=== PATIENT | male | born 1975 | race African-American/Black ===

== ENCOUNTER 2020-11-01 16:06 | Inpatient (IN) | payer OTHER ==
[2020-11-01] MEDS ORDERED: MAG HYDROX/AL HYDROX/SIMETH 30 ML UNIT-DOSE CUP PO PRN (21:53)
[2020-11-01] MEDS ORDERED: MAGNESIUM HYDROX 2400MG/30ML ORAL SUSPENSION 30 ML CUP PO PRN (21:53)
[2020-11-01] MEDS ORDERED: ACETAMINOPHEN 325 MG TABLET (FP) PO PRN (21:53)
[2020-11-01] MEDS ORDERED: LOPERAMIDE HCL 2 MG CAPSULE PO PRN (21:53)
[2020-11-01] MEDS ORDERED: guaiFENesin 200 MG/10 ML 10 ML UNIT-DOSE CUPS PO PRN (21:53)
[2020-11-01] MEDS ORDERED: P-EPHED 60MG/TRIPROLIDI 2.5MG TABLET PO PRN (21:53)
[2020-11-01] MEDS ORDERED: MAGNESIUM CITRATE 300 ML BOTTLE PO PRN (21:53)
[2020-11-01 22:35] VITALS: BMI 24.3
[2020-11-01] MEDS: THIAMINE HCL 100 MG TABLET (FP) PO SCH (23:19)
[2020-11-01] MEDS: MELATONIN 5 MG TABLETS PO SCH (23:19)
[2020-11-01] MEDS: hydrOXYzine PAMOATE 25 MG CAPSULE (FP) PO SCH (23:19)
[2020-11-02] MEDS: hydrOXYzine PAMOATE 25 MG CAPSULE (FP) PO SCH ×5 (06:19→21:22)
[2020-11-02] MEDS: PRENATAL VITAMINS W/ FOLIC ACID TABLET (FP) PO SCH (10:06)
[2020-11-02 10:37] LABS: PH,URINE 5.5 (5.0-8.0); URINE APPEARANCE CLEAR; URINE BILIRUBIN NEGATIVE (NEGATIVE); URINE COLOR YELLOW; URINE GLUCOSE (UA) NEGATIVE (NEGATIVE); URINE KETONE NEGATIVE (NEGATIVE); URINE LEUK ESTERASE NEGATIVE (NEGATIVE); URINE NITRITE NEGATIVE (NEGATIVE); URINE PROTEIN NEGATIVE (NEGATIVE)
[2020-11-02 10:43] LABS: HEMATOCRIT 42.1 % (35.4-49); HEMOGLOBIN 14.2 GM/dL (11.7-16.9); MCH 29.6 pg (25.7-33.7); MCHC 33.8 g/dl (32.0-35.9); MEAN CELL VOLUME 87.7 fl (80-96); MEAN PLT VOLUME 7.8 fl (7.5-11.1); PLATELET COUNT 309 K/MM3 (134-434); RDW 12.9 % (11.9-15.9); WHITE BLOOD COUNT 5.3 K/mm3 (4.0-10.0)
[2020-11-02] MEDS: MIRTAZAPINE 15 MG TABLET (FP) PO SCH (10:50)
[2020-11-02] MEDS: ESCITALOPRAM OXALATE 20 MG TABLET PO SCH (10:50)
[2020-11-02 10:59] LABS: CREATININE 1.3 mg/dL (0.55-1.3)
[2020-11-02 11:04] LABS: ALBUMIN 3.4 g/dl (3.4-5.0); BLOOD UREA NITROGEN 22.4 mg/dL (7-18); CALCIUM 9.5 mg/dL (8.5-10.1)
[2020-11-02] MEDS: THIAMINE HCL 100 MG TABLET (FP) PO SCH (21:21)
[2020-11-02] MEDS: MELATONIN 5 MG TABLETS PO SCH (21:21)
[2020-11-03] MEDS: hydrOXYzine PAMOATE 25 MG CAPSULE (FP) PO SCH ×5 (06:32→21:10)
[2020-11-03] MEDS: PATIENT'S OWN MEDICATION (NON-FORMULARY) (Bictegrav/Emtricit/Tenofov Ala 1 EACH Tablet) PO SCH (07:23)
[2020-11-03] MEDS ORDERED: PT OWN MED DRAWER 7, Y5N ONE (07:24)
[2020-11-03] MEDS: ATORVASTATIN CA 20 MG TABLET (FP) PO SCH (09:30)
[2020-11-03] MEDS: CHOLECALCIFEROL (VIT D3) 1,000 UNIT (25 MCG) TABLET PO SCH (09:30)
[2020-11-03] MEDS: ESCITALOPRAM OXALATE 20 MG TABLET PO SCH (09:30)
[2020-11-03] MEDS: PRENATAL VITAMINS W/ FOLIC ACID TABLET (FP) PO SCH (09:31)
[2020-11-03] MEDS: MIRTAZAPINE 15 MG TABLET (FP) PO SCH (09:32)
[2020-11-03] MEDS: IBUPROFEN 400 MG TABLET (FP) PO PRN (19:03)
[2020-11-03] MEDS: MELATONIN 5 MG TABLETS PO SCH (21:10)
[2020-11-03] MEDS: THIAMINE HCL 100 MG TABLET (FP) PO SCH (21:10)
[2020-11-04] MEDS: hydrOXYzine PAMOATE 25 MG CAPSULE (FP) PO SCH ×5 (06:08→21:23)
[2020-11-04] MEDS: IBUPROFEN 400 MG TABLET (FP) PO PRN ×2 (06:46→18:35)
[2020-11-04] MEDS: PATIENT'S OWN MEDICATION (NON-FORMULARY) (Bictegrav/Emtricit/Tenofov Ala 1 EACH Tablet) PO SCH (07:15)
[2020-11-04] MEDS: CHOLECALCIFEROL (VIT D3) 1,000 UNIT (25 MCG) TABLET PO SCH (09:37)
[2020-11-04] MEDS: ATORVASTATIN CA 20 MG TABLET (FP) PO SCH (09:37)
[2020-11-04] MEDS: MIRTAZAPINE 15 MG TABLET (FP) PO SCH (09:37)
[2020-11-04] MEDS: ESCITALOPRAM OXALATE 20 MG TABLET PO SCH (09:37)
[2020-11-04] MEDS: PRENATAL VITAMINS W/ FOLIC ACID TABLET (FP) PO SCH (09:38)
[2020-11-04] MEDS: MELATONIN 5 MG TABLETS PO SCH (21:22)
[2020-11-04] MEDS: THIAMINE HCL 100 MG TABLET (FP) PO SCH (21:22)
[2020-11-05] MEDS: hydrOXYzine PAMOATE 25 MG CAPSULE (FP) PO SCH (06:12)
[2020-11-05] MEDS: PATIENT'S OWN MEDICATION (NON-FORMULARY) (Bictegrav/Emtricit/Tenofov Ala 1 EACH Tablet) PO SCH (07:39)
[2020-11-05] MEDS: MIRTAZAPINE 15 MG TABLET (FP) PO SCH (09:54)
[2020-11-05] MEDS: ATORVASTATIN CA 20 MG TABLET (FP) PO SCH (09:54)
[2020-11-05] MEDS: CHOLECALCIFEROL (VIT D3) 1,000 UNIT (25 MCG) TABLET PO SCH (09:54)
[2020-11-05] MEDS: PRENATAL VITAMINS W/ FOLIC ACID TABLET (FP) PO SCH (09:54)
[2020-11-05] MEDS: ESCITALOPRAM OXALATE 20 MG TABLET PO SCH (09:54)
[2020-11-05] MEDS: OMEGA-3 ACID ETHYL ESTERS (FATTY-ACIDS) 1 GM CAPSULE (FP) PO SCH ×2 (10:27→21:15)
[2020-11-05] MEDS: IBUPROFEN 400 MG TABLET (FP) PO PRN (15:48)
[2020-11-05] MEDS: THIAMINE HCL 100 MG TABLET (FP) PO SCH (21:16)
[2020-11-05] MEDS: MELATONIN 5 MG TABLETS PO SCH (21:16)
[2020-11-05] MEDS: hydrOXYzine PAMOATE 25 MG CAPSULE (FP) PO PRN (21:21)
[2020-11-06] MEDS: PATIENT'S OWN MEDICATION (NON-FORMULARY) (Bictegrav/Emtricit/Tenofov Ala 1 EACH Tablet) PO SCH (08:44)
[2020-11-06] MEDS: OMEGA-3 ACID ETHYL ESTERS (FATTY-ACIDS) 1 GM CAPSULE (FP) PO SCH ×2 (09:44→21:02)
[2020-11-06] MEDS: ESCITALOPRAM OXALATE 20 MG TABLET PO SCH ×2 (09:45→21:03)
[2020-11-06] MEDS: PRENATAL VITAMINS W/ FOLIC ACID TABLET (FP) PO SCH (09:45)
[2020-11-06] MEDS: ATORVASTATIN CA 20 MG TABLET (FP) PO SCH (09:45)
[2020-11-06] MEDS: CHOLECALCIFEROL (VIT D3) 1,000 UNIT (25 MCG) TABLET PO SCH (09:45)
[2020-11-06] MEDS: MIRTAZAPINE 15 MG TABLET (FP) PO SCH ×2 (09:45→21:03)
[2020-11-06] MEDS: IBUPROFEN 400 MG TABLET (FP) PO PRN (13:51)
[2020-11-06] MEDS: MELATONIN 5 MG TABLETS PO SCH (21:02)
[2020-11-06] MEDS: THIAMINE HCL 100 MG TABLET (FP) PO SCH (21:02)
[2020-11-07] MEDS ORDERED: MASKS NR ONE (06:00)
[2020-11-07] MEDS: PATIENT'S OWN MEDICATION (NON-FORMULARY) (Bictegrav/Emtricit/Tenofov Ala 1 EACH Tablet) PO SCH (08:12)
[2020-11-07] MEDS: ATORVASTATIN CA 20 MG TABLET (FP) PO SCH (09:53)
[2020-11-07] MEDS: OMEGA-3 ACID ETHYL ESTERS (FATTY-ACIDS) 1 GM CAPSULE (FP) PO SCH ×2 (09:53→21:20)
[2020-11-07] MEDS: CHOLECALCIFEROL (VIT D3) 1,000 UNIT (25 MCG) TABLET PO SCH (09:53)
[2020-11-07] MEDS: PRENATAL VITAMINS W/ FOLIC ACID TABLET (FP) PO SCH (09:53)
[2020-11-07 13:11] LABS: SARS-CoV-2 NAA Not Detected (Not Detected)
[2020-11-07] MEDS: ESCITALOPRAM OXALATE 20 MG TABLET PO SCH (21:20)
[2020-11-07] MEDS: MELATONIN 5 MG TABLETS PO SCH (21:21)
[2020-11-07] MEDS: MIRTAZAPINE 15 MG TABLET (FP) PO SCH (21:21)
[2020-11-07] MEDS: THIAMINE HCL 100 MG TABLET (FP) PO SCH (21:21)
[2020-11-08] MEDS: CHOLECALCIFEROL (VIT D3) 1,000 UNIT (25 MCG) TABLET PO SCH (09:46)
[2020-11-08] MEDS: OMEGA-3 ACID ETHYL ESTERS (FATTY-ACIDS) 1 GM CAPSULE (FP) PO SCH ×2 (09:46→21:13)
[2020-11-08] MEDS: PRENATAL VITAMINS W/ FOLIC ACID TABLET (FP) PO SCH (09:46)
[2020-11-08] MEDS: PATIENT'S OWN MEDICATION (NON-FORMULARY) (Bictegrav/Emtricit/Tenofov Ala 1 EACH Tablet) PO SCH (09:47)
[2020-11-08] MEDS: ATORVASTATIN CA 20 MG TABLET (FP) PO SCH (09:47)
[2020-11-08] MEDS: hydrOXYzine PAMOATE 25 MG CAPSULE (FP) PO PRN (21:14)
[2020-11-08] MEDS: ESCITALOPRAM OXALATE 20 MG TABLET PO SCH (21:14)
[2020-11-08] MEDS: MELATONIN 5 MG TABLETS PO SCH (21:14)
[2020-11-08] MEDS: MIRTAZAPINE 15 MG TABLET (FP) PO SCH (21:14)
[2020-11-08] MEDS: THIAMINE HCL 100 MG TABLET (FP) PO SCH (21:15)
[2020-11-09] MEDS: PATIENT'S OWN MEDICATION (NON-FORMULARY) (Bictegrav/Emtricit/Tenofov Ala 1 EACH Tablet) PO SCH (08:45)
[2020-11-09] MEDS: PRENATAL VITAMINS W/ FOLIC ACID TABLET (FP) PO SCH (09:44)
[2020-11-09] MEDS: OMEGA-3 ACID ETHYL ESTERS (FATTY-ACIDS) 1 GM CAPSULE (FP) PO SCH ×2 (09:45→21:14)
[2020-11-09] MEDS: ATORVASTATIN CA 20 MG TABLET (FP) PO SCH (09:45)
[2020-11-09] MEDS: CHOLECALCIFEROL (VIT D3) 1,000 UNIT (25 MCG) TABLET PO SCH (09:45)
[2020-11-09] MEDS: MELATONIN 5 MG TABLETS PO SCH (21:14)
[2020-11-09] MEDS: ESCITALOPRAM OXALATE 20 MG TABLET PO SCH (21:14)
[2020-11-09] MEDS: MIRTAZAPINE 15 MG TABLET (FP) PO SCH (21:14)
[2020-11-09] MEDS: THIAMINE HCL 100 MG TABLET (FP) PO SCH (21:14)
[2020-11-10] MEDS: PATIENT'S OWN MEDICATION (NON-FORMULARY) (Bictegrav/Emtricit/Tenofov Ala 1 EACH Tablet) PO SCH (08:49)
[2020-11-10] MEDS: CHOLECALCIFEROL (VIT D3) 1,000 UNIT (25 MCG) TABLET PO SCH (09:49)
[2020-11-10] MEDS: OMEGA-3 ACID ETHYL ESTERS (FATTY-ACIDS) 1 GM CAPSULE (FP) PO SCH ×2 (09:49→21:22)
[2020-11-10] MEDS: ATORVASTATIN CA 20 MG TABLET (FP) PO SCH (09:49)
[2020-11-10] MEDS: PRENATAL VITAMINS W/ FOLIC ACID TABLET (FP) PO SCH (09:49)
[2020-11-10] MEDS: THIAMINE HCL 100 MG TABLET (FP) PO SCH (21:22)
[2020-11-10] MEDS: hydrOXYzine PAMOATE 25 MG CAPSULE (FP) PO PRN (21:22)
[2020-11-10] MEDS: ESCITALOPRAM OXALATE 20 MG TABLET PO SCH (21:22)
[2020-11-10] MEDS: MELATONIN 5 MG TABLETS PO SCH (21:22)
[2020-11-10] MEDS: MIRTAZAPINE 15 MG TABLET (FP) PO SCH (21:22)
[2020-11-10] MEDS: IBUPROFEN 400 MG TABLET (FP) PO PRN (21:24)
[2020-11-11] MEDS: PATIENT'S OWN MEDICATION (NON-FORMULARY) (Bictegrav/Emtricit/Tenofov Ala 1 EACH Tablet) PO SCH (08:45)
[2020-11-11] MEDS: PRENATAL VITAMINS W/ FOLIC ACID TABLET (FP) PO SCH (09:44)
[2020-11-11] MEDS: CHOLECALCIFEROL (VIT D3) 1,000 UNIT (25 MCG) TABLET PO SCH (09:44)
[2020-11-11] MEDS: OMEGA-3 ACID ETHYL ESTERS (FATTY-ACIDS) 1 GM CAPSULE (FP) PO SCH ×2 (09:44→21:27)
[2020-11-11] MEDS: ATORVASTATIN CA 20 MG TABLET (FP) PO SCH (09:44)
[2020-11-11] MEDS: THIAMINE HCL 100 MG TABLET (FP) PO SCH (21:27)
[2020-11-11] MEDS: MIRTAZAPINE 15 MG TABLET (FP) PO SCH (21:27)
[2020-11-11] MEDS: ESCITALOPRAM OXALATE 20 MG TABLET PO SCH (21:27)
[2020-11-11] MEDS: MELATONIN 5 MG TABLETS PO SCH (21:28)
[2020-11-12] MEDS: PATIENT'S OWN MEDICATION (NON-FORMULARY) (Bictegrav/Emtricit/Tenofov Ala 1 EACH Tablet) PO SCH (07:09)
[2020-11-12] MEDS: OMEGA-3 ACID ETHYL ESTERS (FATTY-ACIDS) 1 GM CAPSULE (FP) PO SCH ×2 (09:55→21:24)
[2020-11-12] MEDS: CHOLECALCIFEROL (VIT D3) 1,000 UNIT (25 MCG) TABLET PO SCH (09:55)
[2020-11-12] MEDS: PRENATAL VITAMINS W/ FOLIC ACID TABLET (FP) PO SCH (09:55)
[2020-11-12] MEDS: ATORVASTATIN CA 20 MG TABLET (FP) PO SCH (10:35)
[2020-11-12] MEDS: MELATONIN 5 MG TABLETS PO SCH (21:23)
[2020-11-12] MEDS: THIAMINE HCL 100 MG TABLET (FP) PO SCH (21:23)
[2020-11-12] MEDS: ESCITALOPRAM OXALATE 20 MG TABLET PO SCH (21:24)
[2020-11-12] MEDS: MIRTAZAPINE 15 MG TABLET (FP) PO SCH (21:24)
[2020-11-13] MEDS: PATIENT'S OWN MEDICATION (NON-FORMULARY) (Bictegrav/Emtricit/Tenofov Ala 1 EACH Tablet) PO SCH (07:07)
[2020-11-13] MEDS: ATORVASTATIN CA 20 MG TABLET (FP) PO SCH (09:33)
[2020-11-13] MEDS: OMEGA-3 ACID ETHYL ESTERS (FATTY-ACIDS) 1 GM CAPSULE (FP) PO SCH ×2 (09:34→21:15)
[2020-11-13] MEDS: CHOLECALCIFEROL (VIT D3) 1,000 UNIT (25 MCG) TABLET PO SCH (09:34)
[2020-11-13] MEDS: PRENATAL VITAMINS W/ FOLIC ACID TABLET (FP) PO SCH (09:34)
[2020-11-13] MEDS: IBUPROFEN 400 MG TABLET (FP) PO PRN (13:53)
[2020-11-13] MEDS ORDERED: LIDOCAINE 5% TOPICAL PATCH TP ONE (15:15)
[2020-11-13] MEDS ORDERED: METHOCARBAMOL 500 MG TABLET PO PRN (18:20)
[2020-11-13] MEDS: THIAMINE HCL 100 MG TABLET (FP) PO SCH (21:14)
[2020-11-13] MEDS: MELATONIN 5 MG TABLETS PO SCH (21:14)
[2020-11-13] MEDS: LIDOCAINE PATCH REMOVAL MC SCH (21:15)
[2020-11-13] MEDS: MIRTAZAPINE 15 MG TABLET (FP) PO SCH (21:15)
[2020-11-13] MEDS: ESCITALOPRAM OXALATE 20 MG TABLET PO SCH (21:15)
[2020-11-14] MEDS: PATIENT'S OWN MEDICATION (NON-FORMULARY) (Bictegrav/Emtricit/Tenofov Ala 1 EACH Tablet) PO SCH (07:04)
[2020-11-14] MEDS: PRENATAL VITAMINS W/ FOLIC ACID TABLET (FP) PO SCH (09:51)
[2020-11-14] MEDS: OMEGA-3 ACID ETHYL ESTERS (FATTY-ACIDS) 1 GM CAPSULE (FP) PO SCH ×2 (09:51→21:13)
[2020-11-14] MEDS: CHOLECALCIFEROL (VIT D3) 1,000 UNIT (25 MCG) TABLET PO SCH (09:51)
[2020-11-14] MEDS: ATORVASTATIN CA 20 MG TABLET (FP) PO SCH (09:51)
[2020-11-14] MEDS: METHOCARBAMOL 500 MG TABLET PO SCH ×3 (14:24→21:13)
[2020-11-14] MEDS: MELATONIN 5 MG TABLETS PO SCH (21:13)
[2020-11-14] MEDS: THIAMINE HCL 100 MG TABLET (FP) PO SCH (21:13)
[2020-11-14] MEDS: MIRTAZAPINE 15 MG TABLET (FP) PO SCH (21:13)
[2020-11-14] MEDS: ESCITALOPRAM OXALATE 20 MG TABLET PO SCH (21:13)
[2020-11-14] MEDS: LIDOCAINE PATCH REMOVAL MC SCH (21:14)
[2020-11-15] MEDS: PATIENT'S OWN MEDICATION (NON-FORMULARY) (Bictegrav/Emtricit/Tenofov Ala 1 EACH Tablet) PO SCH (07:02)
[2020-11-15] MEDS: METHOCARBAMOL 500 MG TABLET PO SCH ×4 (10:42→21:31)
[2020-11-15] MEDS: CHOLECALCIFEROL (VIT D3) 1,000 UNIT (25 MCG) TABLET PO SCH (10:42)
[2020-11-15] MEDS: ATORVASTATIN CA 20 MG TABLET (FP) PO SCH (10:42)
[2020-11-15] MEDS: OMEGA-3 ACID ETHYL ESTERS (FATTY-ACIDS) 1 GM CAPSULE (FP) PO SCH ×2 (10:42→21:31)
[2020-11-15] MEDS: PRENATAL VITAMINS W/ FOLIC ACID TABLET (FP) PO SCH (10:43)
[2020-11-15] MEDS: MELATONIN 5 MG TABLETS PO SCH (21:30)
[2020-11-15] MEDS: MIRTAZAPINE 15 MG TABLET (FP) PO SCH (21:31)
[2020-11-15] MEDS: ESCITALOPRAM OXALATE 20 MG TABLET PO SCH (21:32)
[2020-11-15] MEDS: THIAMINE HCL 100 MG TABLET (FP) PO SCH (21:32)
[2020-11-15] MEDS: LIDOCAINE PATCH REMOVAL MC SCH (21:53)
[2020-11-16] MEDS ORDERED: PT OWN MED DRAWER 7, Y5N ONE (03:24)
[2020-11-16] MEDS: PATIENT'S OWN MEDICATION (NON-FORMULARY) (Bictegrav/Emtricit/Tenofov Ala 1 EACH Tablet) PO SCH (07:19)
[2020-11-16] MEDS: ATORVASTATIN CA 20 MG TABLET (FP) PO SCH (10:23)
[2020-11-16] MEDS: CHOLECALCIFEROL (VIT D3) 1,000 UNIT (25 MCG) TABLET PO SCH (10:23)
[2020-11-16] MEDS: hydrOXYzine PAMOATE 25 MG CAPSULE (FP) PO PRN ×2 (10:23→21:27)
[2020-11-16] MEDS: OMEGA-3 ACID ETHYL ESTERS (FATTY-ACIDS) 1 GM CAPSULE (FP) PO SCH ×2 (10:23→21:26)
[2020-11-16] MEDS: METHOCARBAMOL 500 MG TABLET PO SCH ×4 (10:23→22:40)
[2020-11-16] MEDS: PRENATAL VITAMINS W/ FOLIC ACID TABLET (FP) PO SCH (10:23)
[2020-11-16] MEDS: ESCITALOPRAM OXALATE 20 MG TABLET PO SCH (21:25)
[2020-11-16] MEDS: MIRTAZAPINE 15 MG TABLET (FP) PO SCH (21:26)
[2020-11-16] MEDS: MELATONIN 5 MG TABLETS PO SCH (21:27)
[2020-11-16] MEDS: LIDOCAINE PATCH REMOVAL MC SCH (21:27)
[2020-11-16] MEDS: THIAMINE HCL 100 MG TABLET (FP) PO SCH (22:40)
[2020-11-17] MEDS: PATIENT'S OWN MEDICATION (NON-FORMULARY) (Bictegrav/Emtricit/Tenofov Ala 1 EACH Tablet) PO SCH (07:27)
[2020-11-17] MEDS: CHOLECALCIFEROL (VIT D3) 1,000 UNIT (25 MCG) TABLET PO SCH (10:02)
[2020-11-17] MEDS: METHOCARBAMOL 500 MG TABLET PO SCH ×4 (10:03→21:18)
[2020-11-17] MEDS: PRENATAL VITAMINS W/ FOLIC ACID TABLET (FP) PO SCH (10:03)
[2020-11-17] MEDS: OMEGA-3 ACID ETHYL ESTERS (FATTY-ACIDS) 1 GM CAPSULE (FP) PO SCH ×2 (10:03→21:18)
[2020-11-17] MEDS: ATORVASTATIN CA 20 MG TABLET (FP) PO SCH (13:39)
[2020-11-17] MEDS: MELATONIN 5 MG TABLETS PO SCH (21:17)
[2020-11-17] MEDS: THIAMINE HCL 100 MG TABLET (FP) PO SCH (21:17)
[2020-11-17] MEDS: MIRTAZAPINE 15 MG TABLET (FP) PO SCH (21:18)
[2020-11-17] MEDS: ESCITALOPRAM OXALATE 20 MG TABLET PO SCH (21:18)
[2020-11-17] MEDS: LIDOCAINE PATCH REMOVAL MC SCH (21:19)
[2020-11-18] MEDS: PATIENT'S OWN MEDICATION (NON-FORMULARY) (Bictegrav/Emtricit/Tenofov Ala 1 EACH Tablet) PO SCH (07:04)
[2020-11-18] MEDS: OMEGA-3 ACID ETHYL ESTERS (FATTY-ACIDS) 1 GM CAPSULE (FP) PO SCH ×2 (09:19→21:27)
[2020-11-18] MEDS: PRENATAL VITAMINS W/ FOLIC ACID TABLET (FP) PO SCH (09:19)
[2020-11-18] MEDS: ATORVASTATIN CA 20 MG TABLET (FP) PO SCH (09:19)
[2020-11-18] MEDS: CHOLECALCIFEROL (VIT D3) 1,000 UNIT (25 MCG) TABLET PO SCH (09:19)
[2020-11-18] MEDS: METHOCARBAMOL 500 MG TABLET PO SCH ×4 (09:19→21:27)
[2020-11-18] MEDS: MELATONIN 5 MG TABLETS PO SCH (21:27)
[2020-11-18] MEDS: ESCITALOPRAM OXALATE 20 MG TABLET PO SCH (21:27)
[2020-11-18] MEDS: THIAMINE HCL 100 MG TABLET (FP) PO SCH (21:27)
[2020-11-18] MEDS: MIRTAZAPINE 15 MG TABLET (FP) PO SCH (21:28)
[2020-11-18] MEDS: LIDOCAINE PATCH REMOVAL MC SCH (21:31)
[2020-11-19] MEDS: PATIENT'S OWN MEDICATION (NON-FORMULARY) (Bictegrav/Emtricit/Tenofov Ala 1 EACH Tablet) PO SCH (07:02)
[2020-11-19] MEDS: CHOLECALCIFEROL (VIT D3) 1,000 UNIT (25 MCG) TABLET PO SCH (10:02)
[2020-11-19] MEDS: PRENATAL VITAMINS W/ FOLIC ACID TABLET (FP) PO SCH (10:02)
[2020-11-19] MEDS: ATORVASTATIN CA 20 MG TABLET (FP) PO SCH (10:02)
[2020-11-19] MEDS: METHOCARBAMOL 500 MG TABLET PO SCH ×4 (10:02→21:36)
[2020-11-19] MEDS: OMEGA-3 ACID ETHYL ESTERS (FATTY-ACIDS) 1 GM CAPSULE (FP) PO SCH ×2 (10:02→21:35)
[2020-11-19] MEDS: ESCITALOPRAM OXALATE 20 MG TABLET PO SCH (21:36)
[2020-11-19] MEDS: MIRTAZAPINE 15 MG TABLET (FP) PO SCH (21:36)
[2020-11-19] MEDS: THIAMINE HCL 100 MG TABLET (FP) PO SCH (21:36)
[2020-11-19] MEDS: MELATONIN 5 MG TABLETS PO SCH (21:36)
[2020-11-19] MEDS: LIDOCAINE PATCH REMOVAL MC SCH (21:37)
[2020-11-20] MEDS: PATIENT'S OWN MEDICATION (NON-FORMULARY) (Bictegrav/Emtricit/Tenofov Ala 1 EACH Tablet) PO SCH (07:42)
[2020-11-20] MEDS: CHOLECALCIFEROL (VIT D3) 1,000 UNIT (25 MCG) TABLET PO SCH (10:19)
[2020-11-20] MEDS: ATORVASTATIN CA 20 MG TABLET (FP) PO SCH (10:19)
[2020-11-20] MEDS: PRENATAL VITAMINS W/ FOLIC ACID TABLET (FP) PO SCH (10:19)
[2020-11-20] MEDS: OMEGA-3 ACID ETHYL ESTERS (FATTY-ACIDS) 1 GM CAPSULE (FP) PO SCH ×2 (10:19→21:21)
[2020-11-20] MEDS: METHOCARBAMOL 500 MG TABLET PO SCH ×4 (10:19→21:21)
[2020-11-20] MEDS: THIAMINE HCL 100 MG TABLET (FP) PO SCH (21:21)
[2020-11-20] MEDS: MIRTAZAPINE 15 MG TABLET (FP) PO SCH (21:21)
[2020-11-20] MEDS: MELATONIN 5 MG TABLETS PO SCH (21:21)
[2020-11-20] MEDS: ESCITALOPRAM OXALATE 20 MG TABLET PO SCH (21:21)
[2020-11-20] MEDS: LIDOCAINE PATCH REMOVAL MC SCH (21:22)
[2020-11-21] MEDS: PATIENT'S OWN MEDICATION (NON-FORMULARY) (Bictegrav/Emtricit/Tenofov Ala 1 EACH Tablet) PO SCH (07:05)
[2020-11-21 07:17] VITALS: PULSE 72
[2020-11-21] MEDS: CHOLECALCIFEROL (VIT D3) 1,000 UNIT (25 MCG) TABLET PO SCH (10:23)
[2020-11-21] MEDS: PRENATAL VITAMINS W/ FOLIC ACID TABLET (FP) PO SCH (10:23)
[2020-11-21] MEDS: OMEGA-3 ACID ETHYL ESTERS (FATTY-ACIDS) 1 GM CAPSULE (FP) PO SCH ×2 (10:24→21:37)
[2020-11-21] MEDS: ATORVASTATIN CA 20 MG TABLET (FP) PO SCH (10:24)
[2020-11-21] MEDS: METHOCARBAMOL 500 MG TABLET PO SCH ×4 (10:24→21:37)
[2020-11-21] MEDS: ESCITALOPRAM OXALATE 20 MG TABLET PO SCH (21:37)
[2020-11-21] MEDS: MIRTAZAPINE 15 MG TABLET (FP) PO SCH (21:37)
[2020-11-21] MEDS: THIAMINE HCL 100 MG TABLET (FP) PO SCH (21:38)
[2020-11-21] MEDS: LIDOCAINE PATCH REMOVAL MC SCH (21:38)
[2020-11-21] MEDS: MELATONIN 5 MG TABLETS PO SCH (21:38)
[2020-11-22] MEDS: PATIENT'S OWN MEDICATION (NON-FORMULARY) (Bictegrav/Emtricit/Tenofov Ala 1 EACH Tablet) PO SCH (07:01)
[2020-11-22 07:32] VITALS: BP 127/84; TEMP 96.8
[2020-11-22] MEDS ORDERED: PT OWN MED DRAWER 7, Y5N ONE (09:07)
[2020-11-22] MEDS: PRENATAL VITAMINS W/ FOLIC ACID TABLET (FP) PO SCH (10:03)
[2020-11-22] MEDS: OMEGA-3 ACID ETHYL ESTERS (FATTY-ACIDS) 1 GM CAPSULE (FP) PO SCH (10:03)
[2020-11-22] MEDS: ATORVASTATIN CA 20 MG TABLET (FP) PO SCH (10:03)
[2020-11-22] MEDS: METHOCARBAMOL 500 MG TABLET PO SCH (10:03)
[2020-11-22] MEDS: CHOLECALCIFEROL (VIT D3) 1,000 UNIT (25 MCG) TABLET PO SCH (10:03)
== END 2020-11-22 10:09 | disposition home or self-care (01) | DRG 772 ==
LOC: YASAS 16:06 → Y3W 21:21
PROVIDERS: ADMIT Allergy & Immunology; ATTEND Allergy & Immunology
PROC: HZ42ZZZ Group Counseling for Substance Abuse Treatment, Cognitive-Behavioral (ICD-10-PCS; principal; 2020-11-01)
DX: F14.20 Cocaine dependence, uncomplicated (principal); F15.20 Other stimulant dependence, uncomplicated; F19.280 Other psychoactive substance dependence with psychoactive substance-induced anxiety disorder; F19.282 Other psychoactive substance dependence with psychoactive substance-induced sleep disorder; F32.9 Major depressive disorder, single episode, unspecified; F43.10 Post-traumatic stress disorder, unspecified; Z21 Asymptomatic human immunodeficiency virus [HIV] infection status; E78.5 Hyperlipidemia, unspecified; M54.89 Other dorsalgia; Z62.810 Personal history of physical and sexual abuse in childhood; Z86.19 Personal history of other infectious and parasitic diseases; Z98.890 Other specified postprocedural states
CPT/HCPCS: 36415; 80053; 81003; 85027; 86593; 86780; 93005; 93010; C9803; U0003; U0005

== ENCOUNTER 2021-05-30 13:28 | Inpatient (IN) | payer OTHER ==
[2021-05-30 17:31] VITALS: BMI 24.7
[2021-05-30] MEDS ORDERED: guaiFENesin 200 MG/10 ML 10 ML UNIT-DOSE CUPS PO PRN (21:23)
[2021-05-30] MEDS ORDERED: MAGNESIUM HYDROX 2400MG/30ML ORAL SUSPENSION 30 ML CUP PO PRN (21:23)
[2021-05-30] MEDS ORDERED: P-EPHED 60MG/TRIPROLIDI 2.5MG TABLET PO PRN (21:23)
[2021-05-30] MEDS ORDERED: LOPERAMIDE HCL 2 MG CAPSULE PO PRN (21:23)
[2021-05-30] MEDS ORDERED: ACETAMINOPHEN 325 MG TABLET (FP) PO PRN (21:23)
[2021-05-30] MEDS ORDERED: MAG HYDROX/AL HYDROX/SIMETH 30 ML UNIT-DOSE CUP PO PRN (21:23)
[2021-05-30] MEDS ORDERED: MAGNESIUM CITRATE 300 ML BOTTLE PO PRN (21:23)
[2021-05-31] MEDS: THIAMINE HCL 100 MG TABLET (FP) PO SCH ×2 (01:15→21:38)
[2021-05-31] MEDS: MELATONIN 5 MG TABLETS PO SCH ×2 (01:16→21:36)
[2021-05-31] MEDS: hydrOXYzine PAMOATE 25 MG CAPSULE (FP) PO SCH ×6 (01:16→21:35)
[2021-05-31] MEDS: ATORVASTATIN CA 20 MG TABLET (FP) PO SCH ×2 (01:16→21:36)
[2021-05-31] MEDS: IBUPROFEN 400 MG TABLET (FP) PO PRN (03:06)
[2021-05-31] MEDS: PRENATAL VITAMINS W/ FOLIC ACID TABLET (FP) PO SCH (10:16)
[2021-05-31] MEDS: NICOTINE 7 MG/24 HOURS TOPICAL PATCH TD SCH (10:16)
[2021-05-31] MEDS: CHOLECALCIFEROL (VIT D3) 1,000 UNIT (25 MCG) TABLET PO SCH (10:16)
[2021-05-31] MEDS: BICTEGRAV/EMTRICIT/TENOFOV (BIKTARVY) 50-200-25 MG TABLET PO SCH (10:16)
[2021-05-31 11:22] LABS: HEMATOCRIT 40.5 % (35.4-49); MCHC 34.4 g/dl (32.0-35.9); MEAN CELL VOLUME 84.2 fl (80-96); MEAN PLT VOLUME 7.4 fl (7.5-11.1); PLATELET COUNT 265 10^3/uL (134-434); RBC 4.81 M/mm3 (4.00-5.60); RDW 12.8 % (11.9-15.9); WHITE BLOOD COUNT 4.7 K/mm3 (4.0-10.0)
[2021-05-31 11:35] LABS: CALCIUM 9.3 mg/dL (8.5-10.1)
[2021-05-31 11:36] LABS: BLOOD UREA NITROGEN 16.6 mg/dL (7-18)
[2021-05-31 11:38] LABS: CREATININE 1.2 mg/dL (0.55-1.3)
[2021-05-31 11:40] LABS: BILIRUBIN,TOTAL 0.6 mg/dL (0.2-1); TOT PROT 6.9 g/dl (6.4-8.2)
[2021-05-31 11:53] LABS: URINE APPEARANCE Clear; URINE BILIRUBIN Negative (NEGATIVE); URINE COLOR Yellow; URINE GLUCOSE (UA) Negative (NEGATIVE); URINE KETONE Trace (NEGATIVE); URINE LEUK ESTERASE Negative (NEGATIVE); URINE NITRITE Negative (NEGATIVE); URINE PROTEIN Negative (NEGATIVE); URINE UROBILINOGEN 0.2 mg/dL (0.2-1.0)
[2021-05-31] MEDS: ESCITALOPRAM OXALATE 20 MG TABLET PO SCH (12:16)
[2021-05-31 20:09] LABS: SYPHILIS W/ RPR CONF REACTIVE (NONREACTIVE)
[2021-05-31] MEDS: MIRTAZAPINE 15 MG TABLET (FP) PO SCH (21:38)
[2021-05-31] MEDS: risperiDONE 2 MG TABLET PO SCH (21:38)
[2021-06-01] MEDS: hydrOXYzine PAMOATE 25 MG CAPSULE (FP) PO SCH ×5 (06:20→21:19)
[2021-06-01] MEDS: PRENATAL VITAMINS W/ FOLIC ACID TABLET (FP) PO SCH (09:59)
[2021-06-01] MEDS: BICTEGRAV/EMTRICIT/TENOFOV (BIKTARVY) 50-200-25 MG TABLET PO SCH (10:00)
[2021-06-01] MEDS: NICOTINE 7 MG/24 HOURS TOPICAL PATCH TD SCH (10:00)
[2021-06-01] MEDS: ESCITALOPRAM OXALATE 20 MG TABLET PO SCH (10:00)
[2021-06-01] MEDS: CHOLECALCIFEROL (VIT D3) 1,000 UNIT (25 MCG) TABLET PO SCH (10:00)
[2021-06-01] MEDS: ATORVASTATIN CA 20 MG TABLET (FP) PO SCH (21:18)
[2021-06-01] MEDS: MELATONIN 5 MG TABLETS PO SCH (21:18)
[2021-06-01] MEDS: risperiDONE 2 MG TABLET PO SCH (21:18)
[2021-06-01] MEDS: MIRTAZAPINE 15 MG TABLET (FP) PO SCH (21:18)
[2021-06-01] MEDS: THIAMINE HCL 100 MG TABLET (FP) PO SCH (21:18)
[2021-06-02] MEDS: hydrOXYzine PAMOATE 25 MG CAPSULE (FP) PO SCH ×5 (06:10→21:21)
[2021-06-02] MEDS: BICTEGRAV/EMTRICIT/TENOFOV (BIKTARVY) 50-200-25 MG TABLET PO SCH (09:55)
[2021-06-02] MEDS: NICOTINE 7 MG/24 HOURS TOPICAL PATCH TD SCH (09:55)
[2021-06-02] MEDS: ESCITALOPRAM OXALATE 20 MG TABLET PO SCH (09:55)
[2021-06-02] MEDS: CHOLECALCIFEROL (VIT D3) 1,000 UNIT (25 MCG) TABLET PO SCH (09:55)
[2021-06-02] MEDS: PRENATAL VITAMINS W/ FOLIC ACID TABLET (FP) PO SCH (09:55)
[2021-06-02] MEDS: THIAMINE HCL 100 MG TABLET (FP) PO SCH (21:20)
[2021-06-02] MEDS: risperiDONE 2 MG TABLET PO SCH (21:21)
[2021-06-02] MEDS: MIRTAZAPINE 15 MG TABLET (FP) PO SCH (21:21)
[2021-06-02] MEDS: ATORVASTATIN CA 20 MG TABLET (FP) PO SCH (21:21)
[2021-06-02] MEDS: MELATONIN 5 MG TABLETS PO SCH (21:21)
[2021-06-03] MEDS: hydrOXYzine PAMOATE 25 MG CAPSULE (FP) PO SCH ×5 (06:27→21:25)
[2021-06-03] MEDS: CHOLECALCIFEROL (VIT D3) 1,000 UNIT (25 MCG) TABLET PO SCH (09:58)
[2021-06-03] MEDS: PRENATAL VITAMINS W/ FOLIC ACID TABLET (FP) PO SCH (09:58)
[2021-06-03] MEDS: BICTEGRAV/EMTRICIT/TENOFOV (BIKTARVY) 50-200-25 MG TABLET PO SCH (09:58)
[2021-06-03] MEDS: ESCITALOPRAM OXALATE 20 MG TABLET PO SCH (09:58)
[2021-06-03] MEDS: NICOTINE 7 MG/24 HOURS TOPICAL PATCH TD SCH (09:58)
[2021-06-03] MEDS: MELATONIN 5 MG TABLETS PO SCH (21:25)
[2021-06-03] MEDS: ATORVASTATIN CA 20 MG TABLET (FP) PO SCH (21:25)
[2021-06-03] MEDS: MIRTAZAPINE 15 MG TABLET (FP) PO SCH (21:25)
[2021-06-03] MEDS: THIAMINE HCL 100 MG TABLET (FP) PO SCH (21:25)
[2021-06-03] MEDS: risperiDONE 2 MG TABLET PO SCH (21:25)
[2021-06-04] MEDS: hydrOXYzine PAMOATE 25 MG CAPSULE (FP) PO SCH ×5 (06:33→21:03)
[2021-06-04] MEDS: CHOLECALCIFEROL (VIT D3) 1,000 UNIT (25 MCG) TABLET PO SCH (10:33)
[2021-06-04] MEDS: PRENATAL VITAMINS W/ FOLIC ACID TABLET (FP) PO SCH (10:33)
[2021-06-04] MEDS: BICTEGRAV/EMTRICIT/TENOFOV (BIKTARVY) 50-200-25 MG TABLET PO SCH (10:34)
[2021-06-04] MEDS: ESCITALOPRAM OXALATE 20 MG TABLET PO SCH (10:34)
[2021-06-04] MEDS: NICOTINE 7 MG/24 HOURS TOPICAL PATCH TD SCH (10:34)
[2021-06-04] MEDS: MIRTAZAPINE 15 MG TABLET (FP) PO SCH (21:02)
[2021-06-04] MEDS: risperiDONE 2 MG TABLET PO SCH (21:02)
[2021-06-04] MEDS: ATORVASTATIN CA 20 MG TABLET (FP) PO SCH (21:02)
[2021-06-04] MEDS: THIAMINE HCL 100 MG TABLET (FP) PO SCH (21:03)
[2021-06-04] MEDS: MELATONIN 5 MG TABLETS PO SCH (21:03)
[2021-06-05] MEDS: hydrOXYzine PAMOATE 25 MG CAPSULE (FP) PO SCH ×5 (06:33→21:29)
[2021-06-05] MEDS: CHOLECALCIFEROL (VIT D3) 1,000 UNIT (25 MCG) TABLET PO SCH (10:30)
[2021-06-05] MEDS: PRENATAL VITAMINS W/ FOLIC ACID TABLET (FP) PO SCH (10:30)
[2021-06-05] MEDS: BICTEGRAV/EMTRICIT/TENOFOV (BIKTARVY) 50-200-25 MG TABLET PO SCH (10:30)
[2021-06-05] MEDS: ESCITALOPRAM OXALATE 20 MG TABLET PO SCH (10:30)
[2021-06-05] MEDS: NICOTINE 7 MG/24 HOURS TOPICAL PATCH TD SCH (10:31)
[2021-06-05] MEDS: MELATONIN 5 MG TABLETS PO SCH (21:28)
[2021-06-05] MEDS: THIAMINE HCL 100 MG TABLET (FP) PO SCH (21:28)
[2021-06-05] MEDS: risperiDONE 2 MG TABLET PO SCH (21:29)
[2021-06-05] MEDS: MIRTAZAPINE 15 MG TABLET (FP) PO SCH (21:29)
[2021-06-05] MEDS: ATORVASTATIN CA 20 MG TABLET (FP) PO SCH (21:29)
[2021-06-06] MEDS: hydrOXYzine PAMOATE 25 MG CAPSULE (FP) PO SCH ×5 (07:04→21:13)
[2021-06-06] MEDS: BICTEGRAV/EMTRICIT/TENOFOV (BIKTARVY) 50-200-25 MG TABLET PO SCH (10:08)
[2021-06-06] MEDS: ESCITALOPRAM OXALATE 20 MG TABLET PO SCH (10:08)
[2021-06-06] MEDS: CHOLECALCIFEROL (VIT D3) 1,000 UNIT (25 MCG) TABLET PO SCH (10:08)
[2021-06-06] MEDS: NICOTINE 7 MG/24 HOURS TOPICAL PATCH TD SCH (10:08)
[2021-06-06] MEDS: PRENATAL VITAMINS W/ FOLIC ACID TABLET (FP) PO SCH (10:08)
[2021-06-06] MEDS: MIRTAZAPINE 15 MG TABLET (FP) PO SCH (21:12)
[2021-06-06] MEDS: risperiDONE 2 MG TABLET PO SCH (21:12)
[2021-06-06] MEDS: MELATONIN 5 MG TABLETS PO SCH (21:12)
[2021-06-06] MEDS: ATORVASTATIN CA 20 MG TABLET (FP) PO SCH (21:12)
[2021-06-06] MEDS: THIAMINE HCL 100 MG TABLET (FP) PO SCH (21:13)
[2021-06-07] MEDS: hydrOXYzine PAMOATE 25 MG CAPSULE (FP) PO SCH ×5 (06:34→21:32)
[2021-06-07] MEDS: ESCITALOPRAM OXALATE 20 MG TABLET PO SCH (10:08)
[2021-06-07] MEDS: CHOLECALCIFEROL (VIT D3) 1,000 UNIT (25 MCG) TABLET PO SCH (10:08)
[2021-06-07] MEDS: PRENATAL VITAMINS W/ FOLIC ACID TABLET (FP) PO SCH (10:08)
[2021-06-07] MEDS: NICOTINE 7 MG/24 HOURS TOPICAL PATCH TD SCH (10:08)
[2021-06-07] MEDS: BICTEGRAV/EMTRICIT/TENOFOV (BIKTARVY) 50-200-25 MG TABLET PO SCH (10:08)
[2021-06-07] MEDS: ATORVASTATIN CA 20 MG TABLET (FP) PO SCH (21:32)
[2021-06-07] MEDS: THIAMINE HCL 100 MG TABLET (FP) PO SCH (21:32)
[2021-06-07] MEDS: MIRTAZAPINE 15 MG TABLET (FP) PO SCH (21:32)
[2021-06-07] MEDS: MELATONIN 5 MG TABLETS PO SCH (21:32)
[2021-06-07] MEDS: risperiDONE 2 MG TABLET PO SCH (21:33)
[2021-06-08] MEDS: hydrOXYzine PAMOATE 25 MG CAPSULE (FP) PO SCH ×5 (06:50→21:20)
[2021-06-08] MEDS: CHOLECALCIFEROL (VIT D3) 1,000 UNIT (25 MCG) TABLET PO SCH (09:57)
[2021-06-08] MEDS: ESCITALOPRAM OXALATE 20 MG TABLET PO SCH (09:57)
[2021-06-08] MEDS: BICTEGRAV/EMTRICIT/TENOFOV (BIKTARVY) 50-200-25 MG TABLET PO SCH (09:57)
[2021-06-08] MEDS: PRENATAL VITAMINS W/ FOLIC ACID TABLET (FP) PO SCH (09:57)
[2021-06-08] MEDS: NICOTINE 7 MG/24 HOURS TOPICAL PATCH TD SCH (09:58)
[2021-06-08] MEDS: ATORVASTATIN CA 20 MG TABLET (FP) PO SCH (21:20)
[2021-06-08] MEDS: risperiDONE 2 MG TABLET PO SCH (21:20)
[2021-06-08] MEDS: MELATONIN 5 MG TABLETS PO SCH (21:20)
[2021-06-08] MEDS: THIAMINE HCL 100 MG TABLET (FP) PO SCH (21:20)
[2021-06-08] MEDS: MIRTAZAPINE 15 MG TABLET (FP) PO SCH (21:20)
[2021-06-09] MEDS: hydrOXYzine PAMOATE 25 MG CAPSULE (FP) PO SCH ×5 (06:36→21:30)
[2021-06-09] MEDS: PRENATAL VITAMINS W/ FOLIC ACID TABLET (FP) PO SCH (09:33)
[2021-06-09] MEDS: NICOTINE 7 MG/24 HOURS TOPICAL PATCH TD SCH (09:33)
[2021-06-09] MEDS: ESCITALOPRAM OXALATE 20 MG TABLET PO SCH (09:33)
[2021-06-09] MEDS: BICTEGRAV/EMTRICIT/TENOFOV (BIKTARVY) 50-200-25 MG TABLET PO SCH (09:33)
[2021-06-09] MEDS: CHOLECALCIFEROL (VIT D3) 1,000 UNIT (25 MCG) TABLET PO SCH (09:33)
[2021-06-09] MEDS: MIRTAZAPINE 15 MG TABLET (FP) PO SCH (21:30)
[2021-06-09] MEDS: ATORVASTATIN CA 20 MG TABLET (FP) PO SCH (21:30)
[2021-06-09] MEDS: risperiDONE 2 MG TABLET PO SCH (21:30)
[2021-06-09] MEDS: MELATONIN 5 MG TABLETS PO SCH (21:31)
[2021-06-09] MEDS: THIAMINE HCL 100 MG TABLET (FP) PO SCH (21:31)
[2021-06-10] MEDS: hydrOXYzine PAMOATE 25 MG CAPSULE (FP) PO SCH ×5 (06:53→21:22)
[2021-06-10] MEDS: BICTEGRAV/EMTRICIT/TENOFOV (BIKTARVY) 50-200-25 MG TABLET PO SCH (10:11)
[2021-06-10] MEDS: PRENATAL VITAMINS W/ FOLIC ACID TABLET (FP) PO SCH (10:11)
[2021-06-10] MEDS: NICOTINE 7 MG/24 HOURS TOPICAL PATCH TD SCH (10:11)
[2021-06-10] MEDS: ESCITALOPRAM OXALATE 20 MG TABLET PO SCH (10:11)
[2021-06-10] MEDS: CHOLECALCIFEROL (VIT D3) 1,000 UNIT (25 MCG) TABLET PO SCH (10:11)
[2021-06-10] MEDS: THIAMINE HCL 100 MG TABLET (FP) PO SCH (21:21)
[2021-06-10] MEDS: MIRTAZAPINE 15 MG TABLET (FP) PO SCH (21:21)
[2021-06-10] MEDS: ATORVASTATIN CA 20 MG TABLET (FP) PO SCH (21:21)
[2021-06-10] MEDS: risperiDONE 2 MG TABLET PO SCH (21:21)
[2021-06-10] MEDS: MELATONIN 5 MG TABLETS PO SCH (21:22)
[2021-06-11] MEDS: hydrOXYzine PAMOATE 25 MG CAPSULE (FP) PO SCH ×5 (07:09→21:19)
[2021-06-11] MEDS: ESCITALOPRAM OXALATE 20 MG TABLET PO SCH (10:00)
[2021-06-11] MEDS: BICTEGRAV/EMTRICIT/TENOFOV (BIKTARVY) 50-200-25 MG TABLET PO SCH (10:00)
[2021-06-11] MEDS: PRENATAL VITAMINS W/ FOLIC ACID TABLET (FP) PO SCH (10:00)
[2021-06-11] MEDS: NICOTINE 7 MG/24 HOURS TOPICAL PATCH TD SCH (10:00)
[2021-06-11] MEDS: CHOLECALCIFEROL (VIT D3) 1,000 UNIT (25 MCG) TABLET PO SCH (10:00)
[2021-06-11] MEDS: NICOTINE 10 MG CARTRIDGE (INHALER) IH PRN (18:42)
[2021-06-11] MEDS: THIAMINE HCL 100 MG TABLET (FP) PO SCH (21:18)
[2021-06-11] MEDS: MELATONIN 5 MG TABLETS PO SCH (21:18)
[2021-06-11] MEDS: risperiDONE 2 MG TABLET PO SCH (21:18)
[2021-06-11] MEDS: ATORVASTATIN CA 20 MG TABLET (FP) PO SCH (21:18)
[2021-06-11] MEDS: MIRTAZAPINE 15 MG TABLET (FP) PO SCH (21:18)
[2021-06-12] MEDS: hydrOXYzine PAMOATE 25 MG CAPSULE (FP) PO SCH ×5 (06:41→21:10)
[2021-06-12] MEDS: NICOTINE 7 MG/24 HOURS TOPICAL PATCH TD SCH (10:32)
[2021-06-12] MEDS: PRENATAL VITAMINS W/ FOLIC ACID TABLET (FP) PO SCH (10:32)
[2021-06-12] MEDS: ESCITALOPRAM OXALATE 20 MG TABLET PO SCH (10:32)
[2021-06-12] MEDS: BICTEGRAV/EMTRICIT/TENOFOV (BIKTARVY) 50-200-25 MG TABLET PO SCH (10:32)
[2021-06-12] MEDS: NICOTINE 10 MG CARTRIDGE (INHALER) IH PRN (10:32)
[2021-06-12] MEDS: CHOLECALCIFEROL (VIT D3) 1,000 UNIT (25 MCG) TABLET PO SCH (10:32)
[2021-06-12] MEDS: MELATONIN 5 MG TABLETS PO SCH (21:10)
[2021-06-12] MEDS: MIRTAZAPINE 15 MG TABLET (FP) PO SCH (21:10)
[2021-06-12] MEDS: THIAMINE HCL 100 MG TABLET (FP) PO SCH (21:10)
[2021-06-12] MEDS: ATORVASTATIN CA 20 MG TABLET (FP) PO SCH (21:10)
[2021-06-12] MEDS: risperiDONE 2 MG TABLET PO SCH (21:10)
[2021-06-13] MEDS: hydrOXYzine PAMOATE 25 MG CAPSULE (FP) PO SCH ×5 (06:53→21:21)
[2021-06-13] MEDS: PRENATAL VITAMINS W/ FOLIC ACID TABLET (FP) PO SCH (10:19)
[2021-06-13] MEDS: NICOTINE 7 MG/24 HOURS TOPICAL PATCH TD SCH (10:19)
[2021-06-13] MEDS: CHOLECALCIFEROL (VIT D3) 1,000 UNIT (25 MCG) TABLET PO SCH (10:19)
[2021-06-13] MEDS: ESCITALOPRAM OXALATE 20 MG TABLET PO SCH (10:19)
[2021-06-13] MEDS: BICTEGRAV/EMTRICIT/TENOFOV (BIKTARVY) 50-200-25 MG TABLET PO SCH (10:57)
[2021-06-13] MEDS: MIRTAZAPINE 15 MG TABLET (FP) PO SCH (21:20)
[2021-06-13] MEDS: risperiDONE 2 MG TABLET PO SCH (21:21)
[2021-06-13] MEDS: MELATONIN 5 MG TABLETS PO SCH (21:21)
[2021-06-13] MEDS: ATORVASTATIN CA 20 MG TABLET (FP) PO SCH (21:21)
[2021-06-13] MEDS: THIAMINE HCL 100 MG TABLET (FP) PO SCH (21:21)
[2021-06-14] MEDS: hydrOXYzine PAMOATE 25 MG CAPSULE (FP) PO SCH ×5 (06:46→21:22)
[2021-06-14] MEDS: PRENATAL VITAMINS W/ FOLIC ACID TABLET (FP) PO SCH (10:05)
[2021-06-14] MEDS: BICTEGRAV/EMTRICIT/TENOFOV (BIKTARVY) 50-200-25 MG TABLET PO SCH (10:05)
[2021-06-14] MEDS: ESCITALOPRAM OXALATE 20 MG TABLET PO SCH (10:05)
[2021-06-14] MEDS: CHOLECALCIFEROL (VIT D3) 1,000 UNIT (25 MCG) TABLET PO SCH (10:05)
[2021-06-14] MEDS: NICOTINE 7 MG/24 HOURS TOPICAL PATCH TD SCH (10:06)
[2021-06-14] MEDS: risperiDONE 2 MG TABLET PO SCH (21:22)
[2021-06-14] MEDS: THIAMINE HCL 100 MG TABLET (FP) PO SCH (21:22)
[2021-06-14] MEDS: MELATONIN 5 MG TABLETS PO SCH (21:22)
[2021-06-14] MEDS: ATORVASTATIN CA 20 MG TABLET (FP) PO SCH (21:22)
[2021-06-14] MEDS: MIRTAZAPINE 15 MG TABLET (FP) PO SCH (21:22)
[2021-06-15] MEDS: hydrOXYzine PAMOATE 25 MG CAPSULE (FP) PO SCH ×5 (07:13→21:15)
[2021-06-15] MEDS: NICOTINE 7 MG/24 HOURS TOPICAL PATCH TD SCH (10:28)
[2021-06-15] MEDS: PRENATAL VITAMINS W/ FOLIC ACID TABLET (FP) PO SCH (10:28)
[2021-06-15] MEDS: ESCITALOPRAM OXALATE 20 MG TABLET PO SCH (10:28)
[2021-06-15] MEDS: BICTEGRAV/EMTRICIT/TENOFOV (BIKTARVY) 50-200-25 MG TABLET PO SCH (10:28)
[2021-06-15] MEDS: CHOLECALCIFEROL (VIT D3) 1,000 UNIT (25 MCG) TABLET PO SCH (10:28)
[2021-06-15] MEDS: IBUPROFEN 400 MG TABLET (FP) PO PRN (10:52)
[2021-06-15] MEDS: MELATONIN 5 MG TABLETS PO SCH (21:14)
[2021-06-15] MEDS: THIAMINE HCL 100 MG TABLET (FP) PO SCH (21:14)
[2021-06-15] MEDS: ATORVASTATIN CA 20 MG TABLET (FP) PO SCH (21:14)
[2021-06-15] MEDS: MIRTAZAPINE 15 MG TABLET (FP) PO SCH (21:14)
[2021-06-15] MEDS: risperiDONE 2 MG TABLET PO SCH (21:15)
[2021-06-16] MEDS: hydrOXYzine PAMOATE 25 MG CAPSULE (FP) PO SCH ×5 (06:37→21:13)
[2021-06-16] MEDS: IBUPROFEN 400 MG TABLET (FP) PO PRN (07:09)
[2021-06-16] MEDS: ESCITALOPRAM OXALATE 20 MG TABLET PO SCH (09:25)
[2021-06-16] MEDS: BICTEGRAV/EMTRICIT/TENOFOV (BIKTARVY) 50-200-25 MG TABLET PO SCH (09:25)
[2021-06-16] MEDS: PRENATAL VITAMINS W/ FOLIC ACID TABLET (FP) PO SCH (09:25)
[2021-06-16] MEDS: CHOLECALCIFEROL (VIT D3) 1,000 UNIT (25 MCG) TABLET PO SCH (09:25)
[2021-06-16] MEDS: NICOTINE 7 MG/24 HOURS TOPICAL PATCH TD SCH (09:25)
[2021-06-16] MEDS: THIAMINE HCL 100 MG TABLET (FP) PO SCH (21:13)
[2021-06-16] MEDS: ATORVASTATIN CA 20 MG TABLET (FP) PO SCH (21:13)
[2021-06-16] MEDS: risperiDONE 2 MG TABLET PO SCH (21:13)
[2021-06-16] MEDS: MIRTAZAPINE 15 MG TABLET (FP) PO SCH (21:13)
[2021-06-16] MEDS: MELATONIN 5 MG TABLETS PO SCH (21:14)
[2021-06-17] MEDS: hydrOXYzine PAMOATE 25 MG CAPSULE (FP) PO SCH ×5 (06:48→21:25)
[2021-06-17] MEDS: CHOLECALCIFEROL (VIT D3) 1,000 UNIT (25 MCG) TABLET PO SCH (10:29)
[2021-06-17] MEDS: BICTEGRAV/EMTRICIT/TENOFOV (BIKTARVY) 50-200-25 MG TABLET PO SCH (10:29)
[2021-06-17] MEDS: PRENATAL VITAMINS W/ FOLIC ACID TABLET (FP) PO SCH (10:30)
[2021-06-17] MEDS: NICOTINE 7 MG/24 HOURS TOPICAL PATCH TD SCH (10:30)
[2021-06-17] MEDS: ESCITALOPRAM OXALATE 20 MG TABLET PO SCH (10:30)
[2021-06-17] MEDS: IBUPROFEN 400 MG TABLET (FP) PO PRN (10:31)
[2021-06-17] MEDS: MIRTAZAPINE 15 MG TABLET (FP) PO SCH (21:25)
[2021-06-17] MEDS: risperiDONE 2 MG TABLET PO SCH (21:25)
[2021-06-17] MEDS: ATORVASTATIN CA 20 MG TABLET (FP) PO SCH (21:26)
[2021-06-17] MEDS: MELATONIN 5 MG TABLETS PO SCH (21:26)
[2021-06-17] MEDS: THIAMINE HCL 100 MG TABLET (FP) PO SCH (21:26)
[2021-06-18] MEDS: hydrOXYzine PAMOATE 25 MG CAPSULE (FP) PO SCH ×5 (05:58→21:02)
[2021-06-18] MEDS: CHOLECALCIFEROL (VIT D3) 1,000 UNIT (25 MCG) TABLET PO SCH (09:53)
[2021-06-18] MEDS: PRENATAL VITAMINS W/ FOLIC ACID TABLET (FP) PO SCH (09:53)
[2021-06-18] MEDS: BICTEGRAV/EMTRICIT/TENOFOV (BIKTARVY) 50-200-25 MG TABLET PO SCH (09:53)
[2021-06-18] MEDS: ESCITALOPRAM OXALATE 20 MG TABLET PO SCH (09:53)
[2021-06-18] MEDS: NICOTINE 7 MG/24 HOURS TOPICAL PATCH TD SCH (09:54)
[2021-06-18] MEDS: IBUPROFEN 400 MG TABLET (FP) PO PRN (09:54)
[2021-06-18] MEDS: LIDOCAINE 5% TOPICAL PATCH TP SCH (17:03)
[2021-06-18] MEDS: risperiDONE 2 MG TABLET PO SCH (21:02)
[2021-06-18] MEDS: ATORVASTATIN CA 20 MG TABLET (FP) PO SCH (21:02)
[2021-06-18] MEDS: MIRTAZAPINE 15 MG TABLET (FP) PO SCH (21:02)
[2021-06-18] MEDS: THIAMINE HCL 100 MG TABLET (FP) PO SCH (21:03)
[2021-06-18] MEDS: LIDOCAINE PATCH REMOVAL MC SCH (21:03)
[2021-06-18] MEDS: MELATONIN 5 MG TABLETS PO SCH (21:03)
[2021-06-19] MEDS: hydrOXYzine PAMOATE 25 MG CAPSULE (FP) PO SCH (07:26)
[2021-06-19] MEDS: CHOLECALCIFEROL (VIT D3) 1,000 UNIT (25 MCG) TABLET PO SCH (10:47)
[2021-06-19] MEDS: PRENATAL VITAMINS W/ FOLIC ACID TABLET (FP) PO SCH (10:47)
[2021-06-19] MEDS: ESCITALOPRAM OXALATE 20 MG TABLET PO SCH (10:47)
[2021-06-19] MEDS: NICOTINE 7 MG/24 HOURS TOPICAL PATCH TD SCH (10:48)
[2021-06-19] MEDS: BICTEGRAV/EMTRICIT/TENOFOV (BIKTARVY) 50-200-25 MG TABLET PO SCH (10:48)
[2021-06-19] MEDS: LIDOCAINE 5% TOPICAL PATCH TP SCH (10:48)
[2021-06-19] MEDS: MELATONIN 5 MG TABLETS PO SCH (21:16)
[2021-06-19] MEDS: ATORVASTATIN CA 20 MG TABLET (FP) PO SCH (21:16)
[2021-06-19] MEDS: risperiDONE 2 MG TABLET PO SCH (21:16)
[2021-06-19] MEDS: LIDOCAINE PATCH REMOVAL MC SCH (21:16)
[2021-06-19] MEDS: MIRTAZAPINE 15 MG TABLET (FP) PO SCH (21:16)
[2021-06-19] MEDS: THIAMINE HCL 100 MG TABLET (FP) PO SCH (21:16)
[2021-06-20] MEDS: PRENATAL VITAMINS W/ FOLIC ACID TABLET (FP) PO SCH (10:27)
[2021-06-20] MEDS: CHOLECALCIFEROL (VIT D3) 1,000 UNIT (25 MCG) TABLET PO SCH (10:27)
[2021-06-20] MEDS: NICOTINE 7 MG/24 HOURS TOPICAL PATCH TD SCH (10:28)
[2021-06-20] MEDS: LIDOCAINE 5% TOPICAL PATCH TP SCH (10:28)
[2021-06-20] MEDS: BICTEGRAV/EMTRICIT/TENOFOV (BIKTARVY) 50-200-25 MG TABLET PO SCH (10:28)
[2021-06-20] MEDS: ESCITALOPRAM OXALATE 20 MG TABLET PO SCH (10:28)
[2021-06-20] MEDS: IBUPROFEN 400 MG TABLET (FP) PO PRN (16:29)
[2021-06-20] MEDS: MIRTAZAPINE 15 MG TABLET (FP) PO SCH (21:25)
[2021-06-20] MEDS: ATORVASTATIN CA 20 MG TABLET (FP) PO SCH (21:25)
[2021-06-20] MEDS: THIAMINE HCL 100 MG TABLET (FP) PO SCH (21:26)
[2021-06-20] MEDS: LIDOCAINE PATCH REMOVAL MC SCH (21:26)
[2021-06-20] MEDS: MELATONIN 5 MG TABLETS PO SCH (21:26)
[2021-06-20] MEDS: risperiDONE 2 MG TABLET PO SCH (21:26)
[2021-06-21] MEDS: CHOLECALCIFEROL (VIT D3) 1,000 UNIT (25 MCG) TABLET PO SCH (10:25)
[2021-06-21] MEDS: BICTEGRAV/EMTRICIT/TENOFOV (BIKTARVY) 50-200-25 MG TABLET PO SCH (10:25)
[2021-06-21] MEDS: ESCITALOPRAM OXALATE 20 MG TABLET PO SCH (10:25)
[2021-06-21] MEDS: PRENATAL VITAMINS W/ FOLIC ACID TABLET (FP) PO SCH (10:25)
[2021-06-21] MEDS: LIDOCAINE 5% TOPICAL PATCH TP SCH (10:25)
[2021-06-21] MEDS: NICOTINE 7 MG/24 HOURS TOPICAL PATCH TD SCH (11:07)
[2021-06-21] MEDS: THIAMINE HCL 100 MG TABLET (FP) PO SCH (21:09)
[2021-06-21] MEDS: MELATONIN 5 MG TABLETS PO SCH (21:09)
[2021-06-21] MEDS: hydrOXYzine PAMOATE 25 MG CAPSULE (FP) PO PRN (21:10)
[2021-06-21] MEDS: risperiDONE 2 MG TABLET PO SCH (21:10)
[2021-06-21] MEDS: ATORVASTATIN CA 20 MG TABLET (FP) PO SCH (21:10)
[2021-06-21] MEDS: MIRTAZAPINE 15 MG TABLET (FP) PO SCH (21:10)
[2021-06-21] MEDS: LIDOCAINE PATCH REMOVAL MC SCH (21:10)
[2021-06-22] MEDS: CHOLECALCIFEROL (VIT D3) 1,000 UNIT (25 MCG) TABLET PO SCH (10:15)
[2021-06-22] MEDS: ESCITALOPRAM OXALATE 20 MG TABLET PO SCH (10:15)
[2021-06-22] MEDS: PRENATAL VITAMINS W/ FOLIC ACID TABLET (FP) PO SCH (10:15)
[2021-06-22] MEDS: LIDOCAINE 5% TOPICAL PATCH TP SCH (10:15)
[2021-06-22] MEDS: NICOTINE 7 MG/24 HOURS TOPICAL PATCH TD SCH (10:15)
[2021-06-22] MEDS: BICTEGRAV/EMTRICIT/TENOFOV (BIKTARVY) 50-200-25 MG TABLET PO SCH (10:15)
[2021-06-22] MEDS: ATORVASTATIN CA 20 MG TABLET (FP) PO SCH (21:27)
[2021-06-22] MEDS: MIRTAZAPINE 15 MG TABLET (FP) PO SCH (21:27)
[2021-06-22] MEDS: risperiDONE 2 MG TABLET PO SCH (21:27)
[2021-06-22] MEDS: THIAMINE HCL 100 MG TABLET (FP) PO SCH (21:28)
[2021-06-22] MEDS: LIDOCAINE PATCH REMOVAL MC SCH (21:28)
[2021-06-22] MEDS: MELATONIN 5 MG TABLETS PO SCH (21:28)
[2021-06-23] MEDS: CHOLECALCIFEROL (VIT D3) 1,000 UNIT (25 MCG) TABLET PO SCH (10:15)
[2021-06-23] MEDS: PRENATAL VITAMINS W/ FOLIC ACID TABLET (FP) PO SCH (10:15)
[2021-06-23] MEDS: LIDOCAINE 5% TOPICAL PATCH TP SCH (10:15)
[2021-06-23] MEDS: ESCITALOPRAM OXALATE 20 MG TABLET PO SCH (10:15)
[2021-06-23] MEDS: BICTEGRAV/EMTRICIT/TENOFOV (BIKTARVY) 50-200-25 MG TABLET PO SCH (10:15)
[2021-06-23] MEDS: NICOTINE 7 MG/24 HOURS TOPICAL PATCH TD SCH (10:16)
[2021-06-23] MEDS: ATORVASTATIN CA 20 MG TABLET (FP) PO SCH (21:31)
[2021-06-23] MEDS: MELATONIN 5 MG TABLETS PO SCH (21:31)
[2021-06-23] MEDS: MIRTAZAPINE 15 MG TABLET (FP) PO SCH (21:31)
[2021-06-23] MEDS: LIDOCAINE PATCH REMOVAL MC SCH (21:31)
[2021-06-23] MEDS: THIAMINE HCL 100 MG TABLET (FP) PO SCH (21:31)
[2021-06-23] MEDS: risperiDONE 2 MG TABLET PO SCH (21:31)
[2021-06-23] MEDS: hydrOXYzine PAMOATE 25 MG CAPSULE (FP) PO PRN (21:34)
[2021-06-24] MEDS: BICTEGRAV/EMTRICIT/TENOFOV (BIKTARVY) 50-200-25 MG TABLET PO SCH (10:37)
[2021-06-24] MEDS: PRENATAL VITAMINS W/ FOLIC ACID TABLET (FP) PO SCH (10:37)
[2021-06-24] MEDS: ESCITALOPRAM OXALATE 20 MG TABLET PO SCH (10:37)
[2021-06-24] MEDS: LIDOCAINE 5% TOPICAL PATCH TP SCH (10:38)
[2021-06-24] MEDS: NICOTINE 7 MG/24 HOURS TOPICAL PATCH TD SCH (10:38)
[2021-06-24] MEDS: CHOLECALCIFEROL (VIT D3) 1,000 UNIT (25 MCG) TABLET PO SCH (10:38)
[2021-06-24] MEDS: MELATONIN 5 MG TABLETS PO SCH (21:20)
[2021-06-24] MEDS: ATORVASTATIN CA 20 MG TABLET (FP) PO SCH (21:20)
[2021-06-24] MEDS: hydrOXYzine PAMOATE 25 MG CAPSULE (FP) PO PRN (21:20)
[2021-06-24] MEDS: MIRTAZAPINE 15 MG TABLET (FP) PO SCH (21:20)
[2021-06-24] MEDS: risperiDONE 2 MG TABLET PO SCH (21:20)
[2021-06-24] MEDS: THIAMINE HCL 100 MG TABLET (FP) PO SCH (21:20)
[2021-06-24] MEDS: LIDOCAINE PATCH REMOVAL MC SCH (21:21)
[2021-06-25] MEDS: NICOTINE 7 MG/24 HOURS TOPICAL PATCH TD SCH (10:32)
[2021-06-25] MEDS: ESCITALOPRAM OXALATE 20 MG TABLET PO SCH (10:32)
[2021-06-25] MEDS: CHOLECALCIFEROL (VIT D3) 1,000 UNIT (25 MCG) TABLET PO SCH (10:32)
[2021-06-25] MEDS: BICTEGRAV/EMTRICIT/TENOFOV (BIKTARVY) 50-200-25 MG TABLET PO SCH (10:32)
[2021-06-25] MEDS: PRENATAL VITAMINS W/ FOLIC ACID TABLET (FP) PO SCH (10:32)
[2021-06-25] MEDS: LIDOCAINE 5% TOPICAL PATCH TP SCH (10:33)
[2021-06-25] MEDS: MELATONIN 5 MG TABLETS PO SCH (21:16)
[2021-06-25] MEDS: risperiDONE 2 MG TABLET PO SCH (21:16)
[2021-06-25] MEDS: hydrOXYzine PAMOATE 25 MG CAPSULE (FP) PO PRN (21:16)
[2021-06-25] MEDS: MIRTAZAPINE 15 MG TABLET (FP) PO SCH (21:16)
[2021-06-25] MEDS: THIAMINE HCL 100 MG TABLET (FP) PO SCH (21:16)
[2021-06-25] MEDS: ATORVASTATIN CA 20 MG TABLET (FP) PO SCH (21:16)
[2021-06-25] MEDS: LIDOCAINE PATCH REMOVAL MC SCH (21:59)
[2021-06-26 06:56] VITALS: BP 128/87; PULSE 88; TEMP 98.8
[2021-06-26] MEDS: ESCITALOPRAM OXALATE 20 MG TABLET PO SCH (09:26)
[2021-06-26] MEDS: PRENATAL VITAMINS W/ FOLIC ACID TABLET (FP) PO SCH (09:26)
[2021-06-26] MEDS: BICTEGRAV/EMTRICIT/TENOFOV (BIKTARVY) 50-200-25 MG TABLET PO SCH (09:26)
[2021-06-26] MEDS: CHOLECALCIFEROL (VIT D3) 1,000 UNIT (25 MCG) TABLET PO SCH (09:26)
[2021-06-26] MEDS: NICOTINE 7 MG/24 HOURS TOPICAL PATCH TD SCH (09:27)
[2021-06-26] MEDS: LIDOCAINE 5% TOPICAL PATCH TP SCH (09:27)
== END 2021-06-26 09:51 | disposition home or self-care (01) | DRG 772 ==
LOC: YASAS 13:28 → Y3W 22:41
PROVIDERS: ADMIT Allergy & Immunology; ATTEND Allergy & Immunology
PROC: HZ42ZZZ Group Counseling for Substance Abuse Treatment, Cognitive-Behavioral (ICD-10-PCS; principal; 2021-05-30)
DX: F14.20 Cocaine dependence, uncomplicated (principal); F10.10 Alcohol abuse, uncomplicated; F15.20 Other stimulant dependence, uncomplicated; F31.9 Bipolar disorder, unspecified; F19.282 Other psychoactive substance dependence with psychoactive substance-induced sleep disorder; F19.24 Other psychoactive substance dependence with psychoactive substance-induced mood disorder; F41.9 Anxiety disorder, unspecified; F43.10 Post-traumatic stress disorder, unspecified; Z21 Asymptomatic human immunodeficiency virus [HIV] infection status; E78.5 Hyperlipidemia, unspecified; M54.50 Low back pain, unspecified; G89.29 Other chronic pain; Z86.19 Personal history of other infectious and parasitic diseases
CPT/HCPCS: 36415; 80053; 81003; 85027; 86593; 86780; 86803; C9803; U0003; U0005

== ENCOUNTER 2022-03-11 12:31 | Inpatient (IN) | payer OTHER ==
[2022-03-11 13:12] VITALS: BMI 24.3
[2022-03-11] MEDS ORDERED: ONDANSETRON *ODT* 4 MG TABLET SL PRN (14:35)
[2022-03-11] MEDS ORDERED: BISMUTH SUBSALICYLATE 524 MG/30 ML PO PRN (14:35)
[2022-03-11] MEDS ORDERED: ACETAMINOPHEN 325 MG TABLET (FP) PO PRN (14:35)
[2022-03-11] MEDS ORDERED: DICYCLOMINE HCL 10 MG CAPSULE PO PRN (14:35)
[2022-03-11] MEDS ORDERED: MAGNESIUM CITRATE 300 ML BOTTLE PO PRN (14:35)
[2022-03-11] MEDS ORDERED: IBUPROFEN 400 MG TABLET (FP) PO PRN (14:35)
[2022-03-11] MEDS ORDERED: BENZOCAINE/MENTHOL (CHLORASEPTIC ) LOZENGE MM PRN (14:35)
[2022-03-11] MEDS ORDERED: MAGNESIUM HYDROX 2400MG/30ML ORAL SUSPENSION 30 ML CUP PO PRN (14:35)
[2022-03-11] MEDS ORDERED: chlordiazePOXIDE HCL 25 MG CAPSULE PO PRN (14:35)
[2022-03-11] MEDS ORDERED: NICOTINE 10 MG CARTRIDGE (INHALER) IH PRN (14:35)
[2022-03-11] MEDS ORDERED: MAG HYDROX/AL HYDROX/SIMETH 30 ML UNIT-DOSE CUP PO PRN (14:35)
[2022-03-11] MEDS ORDERED: LOPERAMIDE HCL 2 MG CAPSULE PO PRN (14:35)
[2022-03-11] MEDS: PRENATAL VITAMINS W/ FOLIC ACID TABLET (FP) PO SCH (15:51)
[2022-03-11] MEDS: hydrOXYzine PAMOATE 25 MG CAPSULE (FP) PO SCH ×2 (18:08→22:30)
[2022-03-11] MEDS: chlordiazePOXIDE HCL 25 MG CAPSULE PO SCH ×2 (18:08→22:30)
[2022-03-11] MEDS ORDERED: risperiDONE 2 MG TABLET PO SCH (22:00)
[2022-03-11] MEDS: METHOCARBAMOL 500 MG TABLET PO PRN (22:29)
[2022-03-11] MEDS: MELATONIN 5 MG TABLETS PO SCH (22:30)
[2022-03-11] MEDS: MIRTAZAPINE 15 MG TABLET (FP) PO SCH (22:30)
[2022-03-11] MEDS: THIAMINE HCL 100 MG TABLET (FP) PO SCH (22:30)
[2022-03-12] MEDS: hydrOXYzine PAMOATE 25 MG CAPSULE (FP) PO SCH ×5 (05:47→22:36)
[2022-03-12] MEDS: chlordiazePOXIDE HCL 25 MG CAPSULE PO SCH ×4 (05:47→22:35)
[2022-03-12 10:06] LABS: HEMATOCRIT 38.2 % (35.4-49); HEMOGLOBIN 12.8 GM/dL (11.7-16.9); MCH 27.5 pg (25.7-33.7); MCHC 33.4 g/dl (32.0-35.9); MEAN CELL VOLUME 82.3 fl (80-96); MEAN PLT VOLUME 7.8 fl (7.5-11.1); PLATELET COUNT 312 10^3/uL (134-434); RBC 4.64 M/mm3 (4.00-5.60); RDW 13.3 % (11.9-15.9)
[2022-03-12] MEDS: PRENATAL VITAMINS W/ FOLIC ACID TABLET (FP) PO SCH (10:59)
[2022-03-12 11:42] LABS: BLOOD UREA NITROGEN 9.6 mg/dL (7-18); CALCIUM 9.1 mg/dL (8.5-10.1)
[2022-03-12 11:43] LABS: CREATININE 0.8 mg/dL (0.55-1.3)
[2022-03-12 11:45] LABS: TOT PROT 7.1 g/dl (6.4-8.2)
[2022-03-12] MEDS: BICTEGRAV/EMTRICIT/TENOFOV (BIKTARVY) 50-200-25 MG TABLET PO SCH (14:48)
[2022-03-12] MEDS: IBUPROFEN 600 MG TABLET (FP) PO PRN (18:19)
[2022-03-12] MEDS: MELATONIN 5 MG TABLETS PO SCH (22:35)
[2022-03-12] MEDS: ATORVASTATIN CA 20 MG TABLET (FP) PO SCH (22:35)
[2022-03-12] MEDS: THIAMINE HCL 100 MG TABLET (FP) PO SCH (22:35)
[2022-03-12] MEDS: MIRTAZAPINE 15 MG TABLET (FP) PO SCH (22:35)
[2022-03-13] MEDS: chlordiazePOXIDE HCL 25 MG CAPSULE PO SCH ×4 (06:07→21:59)
[2022-03-13] MEDS: hydrOXYzine PAMOATE 25 MG CAPSULE (FP) PO SCH ×5 (06:08→21:53)
[2022-03-13] MEDS: PRENATAL VITAMINS W/ FOLIC ACID TABLET (FP) PO SCH (09:54)
[2022-03-13] MEDS: IBUPROFEN 600 MG TABLET (FP) PO PRN ×2 (12:58→21:55)
[2022-03-13] MEDS: CHOLECALCIFEROL (VIT D3) 1,000 UNIT (25 MCG) TABLET PO SCH (12:58)
[2022-03-13] MEDS: BICTEGRAV/EMTRICIT/TENOFOV (BIKTARVY) 50-200-25 MG TABLET PO SCH (12:58)
[2022-03-13] MEDS: MIRTAZAPINE 15 MG TABLET (FP) PO SCH (21:52)
[2022-03-13] MEDS: ATORVASTATIN CA 20 MG TABLET (FP) PO SCH (21:53)
[2022-03-13] MEDS: MELATONIN 5 MG TABLETS PO SCH (21:53)
[2022-03-13] MEDS: THIAMINE HCL 100 MG TABLET (FP) PO SCH (21:53)
[2022-03-13] MEDS: METHOCARBAMOL 500 MG TABLET PO PRN (21:55)
[2022-03-14] MEDS ORDERED: chlordiazePOXIDE HCL 10 MG CAPSULE PO PRN
[2022-03-14] MEDS: IBUPROFEN 600 MG TABLET (FP) PO PRN ×3 (06:07→23:56)
[2022-03-14] MEDS: chlordiazePOXIDE HCL 10 MG CAPSULE PO SCH ×4 (06:08→22:06)
[2022-03-14] MEDS: hydrOXYzine PAMOATE 25 MG CAPSULE (FP) PO SCH ×5 (06:08→22:05)
[2022-03-14] MEDS: BICTEGRAV/EMTRICIT/TENOFOV (BIKTARVY) 50-200-25 MG TABLET PO SCH (08:09)
[2022-03-14] MEDS: PRENATAL VITAMINS W/ FOLIC ACID TABLET (FP) PO SCH (13:43)
[2022-03-14] MEDS: ESCITALOPRAM OXALATE 10 MG TABLET PO SCH (13:43)
[2022-03-14] MEDS: CHOLECALCIFEROL (VIT D3) 1,000 UNIT (25 MCG) TABLET PO SCH (13:44)
[2022-03-14] MEDS: THIAMINE HCL 100 MG TABLET (FP) PO SCH (22:05)
[2022-03-14] MEDS: ATORVASTATIN CA 20 MG TABLET (FP) PO SCH (22:05)
[2022-03-14] MEDS: MELATONIN 5 MG TABLETS PO SCH (22:05)
[2022-03-14] MEDS: MIRTAZAPINE 15 MG TABLET (FP) PO SCH (22:07)
[2022-03-14] MEDS: METHOCARBAMOL 500 MG TABLET PO PRN (22:08)
[2022-03-15] MEDS: ACETAMINOPHEN 325 MG TABLET (FP) PO PRN ×4 (01:17→22:43)
[2022-03-15] MEDS: hydrOXYzine PAMOATE 25 MG CAPSULE (FP) PO SCH ×5 (06:15→22:42)
[2022-03-15] MEDS: chlordiazePOXIDE HCL 10 MG CAPSULE PO SCH ×2 (06:18→17:32)
[2022-03-15] MEDS: BICTEGRAV/EMTRICIT/TENOFOV (BIKTARVY) 50-200-25 MG TABLET PO SCH (07:30)
[2022-03-15] MEDS: ESCITALOPRAM OXALATE 10 MG TABLET PO SCH (10:47)
[2022-03-15] MEDS: CHOLECALCIFEROL (VIT D3) 1,000 UNIT (25 MCG) TABLET PO SCH (10:47)
[2022-03-15] MEDS: PRENATAL VITAMINS W/ FOLIC ACID TABLET (FP) PO SCH (10:47)
[2022-03-15] MEDS: ATORVASTATIN CA 20 MG TABLET (FP) PO SCH (22:42)
[2022-03-15] MEDS: THIAMINE HCL 100 MG TABLET (FP) PO SCH (22:42)
[2022-03-15] MEDS: MELATONIN 5 MG TABLETS PO SCH (22:42)
[2022-03-15] MEDS: MIRTAZAPINE 15 MG TABLET (FP) PO SCH (22:42)
[2022-03-16] MEDS: METHOCARBAMOL 500 MG TABLET PO PRN (01:10)
[2022-03-16] MEDS: IBUPROFEN 600 MG TABLET (FP) PO PRN (01:10)
[2022-03-16] MEDS ORDERED: chlordiazePOXIDE HCL 10 MG CAPSULE PO ONE (05:00)
[2022-03-16] MEDS: hydrOXYzine PAMOATE 25 MG CAPSULE (FP) PO SCH ×2 (06:12→11:58)
[2022-03-16 06:42] VITALS: RESP 17
[2022-03-16] MEDS: BICTEGRAV/EMTRICIT/TENOFOV (BIKTARVY) 50-200-25 MG TABLET PO SCH (07:03)
[2022-03-16] MEDS: CHOLECALCIFEROL (VIT D3) 1,000 UNIT (25 MCG) TABLET PO SCH (11:58)
[2022-03-16] MEDS: PRENATAL VITAMINS W/ FOLIC ACID TABLET (FP) PO SCH (11:58)
[2022-03-16] MEDS: ESCITALOPRAM OXALATE 10 MG TABLET PO SCH (11:59)
[2022-03-16 12:47] VITALS: BP 160/81; PULSE 93; TEMP 96.9
== END 2022-03-16 12:54 | disposition other institution (70) | DRG 774 ==
LOC: SUATTDRO 12:31 → YASAS 12:31 → Y3N 14:19
PROVIDERS: ADMIT Allergy & Immunology; ATTEND Surgery
PROC: HZ2ZZZZ Detoxification Services for Substance Abuse Treatment (ICD-10-PCS; principal; 2022-03-11)
DX: F10.230 Alcohol dependence with withdrawal, uncomplicated (principal); F14.20 Cocaine dependence, uncomplicated; F15.20 Other stimulant dependence, uncomplicated; F19.24 Other psychoactive substance dependence with psychoactive substance-induced mood disorder; F31.9 Bipolar disorder, unspecified; F43.10 Post-traumatic stress disorder, unspecified; F41.9 Anxiety disorder, unspecified; Z21 Asymptomatic human immunodeficiency virus [HIV] infection status; E78.2 Mixed hyperlipidemia; Z86.19 Personal history of other infectious and parasitic diseases
CPT/HCPCS: 36415; 80053; 85027; 86593; 86780; 87811; C9803-CS; U0003; U0005

== ENCOUNTER 2022-03-16 12:54 | Inpatient (IN) | payer OTHER ==
[2022-03-16] MEDS ORDERED: LOPERAMIDE HCL 2 MG CAPSULE PO PRN (14:45)
[2022-03-16] MEDS ORDERED: BENZOCAINE/MENTHOL (CHLORASEPTIC ) LOZENGE MM PRN (14:45)
[2022-03-16] MEDS ORDERED: P-EPHED 60MG/TRIPROLIDI 2.5MG TABLET PO PRN (14:45)
[2022-03-16] MEDS ORDERED: guaiFENesin 200 MG/10 ML 10 ML UNIT-DOSE CUPS PO PRN (14:45)
[2022-03-16] MEDS ORDERED: MAGNESIUM CITRATE 300 ML BOTTLE PO PRN (14:45)
[2022-03-16] MEDS ORDERED: MAG HYDROX/AL HYDROX/SIMETH 30 ML UNIT-DOSE CUP PO PRN (14:45)
[2022-03-16] MEDS ORDERED: NICOTINE 10 MG CARTRIDGE (INHALER) IH PRN (14:45)
[2022-03-16] MEDS ORDERED: MAGNESIUM HYDROX 2400MG/30ML ORAL SUSPENSION 30 ML CUP PO PRN (14:45)
[2022-03-16] MEDS: THIAMINE HCL 100 MG TABLET (FP) PO SCH (21:28)
[2022-03-16] MEDS: hydrOXYzine PAMOATE 25 MG CAPSULE (FP) PO PRN (21:28)
[2022-03-16] MEDS: MELATONIN 5 MG TABLETS PO SCH (21:28)
[2022-03-16] MEDS: MIRTAZAPINE 15 MG TABLET (FP) PO SCH (21:28)
[2022-03-16] MEDS: ATORVASTATIN CA 20 MG TABLET (FP) PO SCH (21:29)
[2022-03-17] MEDS: NICOTINE 7 MG/24 HOURS TOPICAL PATCH TD SCH (09:35)
[2022-03-17] MEDS: PRENATAL VITAMINS W/ FOLIC ACID TABLET (FP) PO SCH (09:35)
[2022-03-17] MEDS: ESCITALOPRAM OXALATE 10 MG TABLET PO SCH (09:35)
[2022-03-17] MEDS: BICTEGRAV/EMTRICIT/TENOFOV (BIKTARVY) 50-200-25 MG TABLET PO SCH (09:35)
[2022-03-17] MEDS: CHOLECALCIFEROL (VIT D3) 1,000 UNIT (25 MCG) TABLET PO SCH (11:00)
[2022-03-17] MEDS: MELATONIN 5 MG TABLETS PO SCH (21:12)
[2022-03-17] MEDS: IBUPROFEN 400 MG TABLET (FP) PO PRN (21:12)
[2022-03-17] MEDS: THIAMINE HCL 100 MG TABLET (FP) PO SCH (21:12)
[2022-03-17] MEDS: MIRTAZAPINE 15 MG TABLET (FP) PO SCH (21:13)
[2022-03-17] MEDS: hydrOXYzine PAMOATE 25 MG CAPSULE (FP) PO PRN (21:13)
[2022-03-17] MEDS: risperiDONE 2 MG TABLET PO SCH (21:14)
[2022-03-17] MEDS: ATORVASTATIN CA 20 MG TABLET (FP) PO SCH (21:46)
[2022-03-18] MEDS: ESCITALOPRAM OXALATE 10 MG TABLET PO SCH (09:57)
[2022-03-18] MEDS: CHOLECALCIFEROL (VIT D3) 1,000 UNIT (25 MCG) TABLET PO SCH (09:58)
[2022-03-18] MEDS: PRENATAL VITAMINS W/ FOLIC ACID TABLET (FP) PO SCH (09:58)
[2022-03-18] MEDS: BICTEGRAV/EMTRICIT/TENOFOV (BIKTARVY) 50-200-25 MG TABLET PO SCH (09:58)
[2022-03-18] MEDS: NICOTINE 7 MG/24 HOURS TOPICAL PATCH TD SCH (09:58)
[2022-03-18] MEDS: IBUPROFEN 400 MG TABLET (FP) PO PRN ×2 (11:46→21:31)
[2022-03-18] MEDS: THIAMINE HCL 100 MG TABLET (FP) PO SCH (21:31)
[2022-03-18] MEDS: MIRTAZAPINE 15 MG TABLET (FP) PO SCH (21:32)
[2022-03-18] MEDS: risperiDONE 2 MG TABLET PO SCH (21:32)
[2022-03-18] MEDS: MELATONIN 5 MG TABLETS PO SCH (21:32)
[2022-03-18] MEDS: ATORVASTATIN CA 20 MG TABLET (FP) PO SCH (21:32)
[2022-03-19] MEDS: ESCITALOPRAM OXALATE 10 MG TABLET PO SCH (09:11)
[2022-03-19] MEDS: BICTEGRAV/EMTRICIT/TENOFOV (BIKTARVY) 50-200-25 MG TABLET PO SCH (09:11)
[2022-03-19] MEDS: PRENATAL VITAMINS W/ FOLIC ACID TABLET (FP) PO SCH (09:11)
[2022-03-19] MEDS: CHOLECALCIFEROL (VIT D3) 1,000 UNIT (25 MCG) TABLET PO SCH (09:11)
[2022-03-19] MEDS: NICOTINE 7 MG/24 HOURS TOPICAL PATCH TD SCH (09:11)
[2022-03-19] MEDS: ACETAMINOPHEN 325 MG TABLET (FP) PO PRN ×2 (09:12→21:12)
[2022-03-19] MEDS: THIAMINE HCL 100 MG TABLET (FP) PO SCH (21:12)
[2022-03-19] MEDS: ATORVASTATIN CA 20 MG TABLET (FP) PO SCH (21:12)
[2022-03-19] MEDS: MIRTAZAPINE 15 MG TABLET (FP) PO SCH (21:12)
[2022-03-19] MEDS: risperiDONE 2 MG TABLET PO SCH (21:12)
[2022-03-19] MEDS: MELATONIN 5 MG TABLETS PO SCH (21:13)
[2022-03-20] MEDS: BICTEGRAV/EMTRICIT/TENOFOV (BIKTARVY) 50-200-25 MG TABLET PO SCH (09:37)
[2022-03-20] MEDS: ACETAMINOPHEN 325 MG TABLET (FP) PO PRN ×2 (09:38→21:30)
[2022-03-20] MEDS: PRENATAL VITAMINS W/ FOLIC ACID TABLET (FP) PO SCH (09:38)
[2022-03-20] MEDS: ESCITALOPRAM OXALATE 10 MG TABLET PO SCH (09:38)
[2022-03-20] MEDS: CHOLECALCIFEROL (VIT D3) 1,000 UNIT (25 MCG) TABLET PO SCH (09:38)
[2022-03-20] MEDS: risperiDONE 2 MG TABLET PO SCH (21:30)
[2022-03-20] MEDS: MIRTAZAPINE 15 MG TABLET (FP) PO SCH (21:30)
[2022-03-20] MEDS: THIAMINE HCL 100 MG TABLET (FP) PO SCH (21:30)
[2022-03-20] MEDS: MELATONIN 5 MG TABLETS PO SCH (21:30)
[2022-03-20] MEDS: hydrOXYzine PAMOATE 25 MG CAPSULE (FP) PO PRN (21:30)
[2022-03-20] MEDS: ATORVASTATIN CA 20 MG TABLET (FP) PO SCH (21:30)
[2022-03-21] MEDS: CHOLECALCIFEROL (VIT D3) 1,000 UNIT (25 MCG) TABLET PO SCH (09:31)
[2022-03-21] MEDS: PRENATAL VITAMINS W/ FOLIC ACID TABLET (FP) PO SCH (09:31)
[2022-03-21] MEDS: BICTEGRAV/EMTRICIT/TENOFOV (BIKTARVY) 50-200-25 MG TABLET PO SCH (09:31)
[2022-03-21] MEDS: ESCITALOPRAM OXALATE 10 MG TABLET PO SCH (09:31)
[2022-03-21] MEDS: ACETAMINOPHEN 325 MG TABLET (FP) PO PRN (09:32)
[2022-03-21] MEDS: risperiDONE 2 MG TABLET PO SCH (21:26)
[2022-03-21] MEDS: ATORVASTATIN CA 20 MG TABLET (FP) PO SCH (21:26)
[2022-03-21] MEDS: IBUPROFEN 400 MG TABLET (FP) PO PRN (21:26)
[2022-03-21] MEDS: hydrOXYzine PAMOATE 25 MG CAPSULE (FP) PO PRN (21:26)
[2022-03-21] MEDS: THIAMINE HCL 100 MG TABLET (FP) PO SCH (21:26)
[2022-03-21] MEDS: MIRTAZAPINE 15 MG TABLET (FP) PO SCH (21:26)
[2022-03-21] MEDS: MELATONIN 5 MG TABLETS PO SCH (21:27)
[2022-03-22] MEDS: BICTEGRAV/EMTRICIT/TENOFOV (BIKTARVY) 50-200-25 MG TABLET PO SCH (09:45)
[2022-03-22] MEDS: ESCITALOPRAM OXALATE 10 MG TABLET PO SCH (09:45)
[2022-03-22] MEDS: PRENATAL VITAMINS W/ FOLIC ACID TABLET (FP) PO SCH (09:45)
[2022-03-22] MEDS: CHOLECALCIFEROL (VIT D3) 1,000 UNIT (25 MCG) TABLET PO SCH (09:45)
[2022-03-22] MEDS: MELATONIN 5 MG TABLETS PO SCH (21:32)
[2022-03-22] MEDS: IBUPROFEN 400 MG TABLET (FP) PO PRN (21:32)
[2022-03-22] MEDS: THIAMINE HCL 100 MG TABLET (FP) PO SCH (21:32)
[2022-03-22] MEDS: hydrOXYzine PAMOATE 25 MG CAPSULE (FP) PO PRN ×2 (21:32→21:33)
[2022-03-22] MEDS: MIRTAZAPINE 15 MG TABLET (FP) PO SCH (21:33)
[2022-03-22] MEDS: ATORVASTATIN CA 20 MG TABLET (FP) PO SCH (21:33)
[2022-03-22] MEDS: risperiDONE 2 MG TABLET PO SCH (21:34)
[2022-03-23] MEDS: ACETAMINOPHEN 325 MG TABLET (FP) PO PRN (06:31)
[2022-03-23] MEDS: CHOLECALCIFEROL (VIT D3) 1,000 UNIT (25 MCG) TABLET PO SCH (09:46)
[2022-03-23] MEDS: BICTEGRAV/EMTRICIT/TENOFOV (BIKTARVY) 50-200-25 MG TABLET PO SCH (09:46)
[2022-03-23] MEDS: ESCITALOPRAM OXALATE 10 MG TABLET PO SCH (09:46)
[2022-03-23] MEDS: hydrOXYzine PAMOATE 25 MG CAPSULE (FP) PO PRN ×2 (09:46→21:26)
[2022-03-23] MEDS: PRENATAL VITAMINS W/ FOLIC ACID TABLET (FP) PO SCH (09:46)
[2022-03-23] MEDS: IBUPROFEN 400 MG TABLET (FP) PO PRN (12:27)
[2022-03-23] MEDS: MELATONIN 5 MG TABLETS PO SCH (21:25)
[2022-03-23] MEDS: THIAMINE HCL 100 MG TABLET (FP) PO SCH (21:25)
[2022-03-23] MEDS: MIRTAZAPINE 15 MG TABLET (FP) PO SCH (21:25)
[2022-03-23] MEDS: ATORVASTATIN CA 20 MG TABLET (FP) PO SCH (21:26)
[2022-03-23] MEDS: risperiDONE 2 MG TABLET PO SCH (21:26)
[2022-03-24] MEDS: ACETAMINOPHEN 325 MG TABLET (FP) PO PRN (06:11)
[2022-03-24] MEDS: ESCITALOPRAM OXALATE 10 MG TABLET PO SCH (09:55)
[2022-03-24] MEDS: BICTEGRAV/EMTRICIT/TENOFOV (BIKTARVY) 50-200-25 MG TABLET PO SCH (09:55)
[2022-03-24] MEDS: PRENATAL VITAMINS W/ FOLIC ACID TABLET (FP) PO SCH (09:56)
[2022-03-24] MEDS: CHOLECALCIFEROL (VIT D3) 1,000 UNIT (25 MCG) TABLET PO SCH (09:56)
[2022-03-24] MEDS: ATORVASTATIN CA 20 MG TABLET (FP) PO SCH (21:21)
[2022-03-24] MEDS: MIRTAZAPINE 15 MG TABLET (FP) PO SCH (21:21)
[2022-03-24] MEDS: MELATONIN 5 MG TABLETS PO SCH (21:21)
[2022-03-24] MEDS: THIAMINE HCL 100 MG TABLET (FP) PO SCH (21:21)
[2022-03-24] MEDS: risperiDONE 2 MG TABLET PO SCH (21:21)
[2022-03-25] MEDS: ACETAMINOPHEN 325 MG TABLET (FP) PO PRN (07:56)
[2022-03-25] MEDS: PRENATAL VITAMINS W/ FOLIC ACID TABLET (FP) PO SCH (10:48)
[2022-03-25] MEDS: BICTEGRAV/EMTRICIT/TENOFOV (BIKTARVY) 50-200-25 MG TABLET PO SCH (10:48)
[2022-03-25] MEDS: ESCITALOPRAM OXALATE 10 MG TABLET PO SCH (10:48)
[2022-03-25] MEDS: CHOLECALCIFEROL (VIT D3) 1,000 UNIT (25 MCG) TABLET PO SCH (10:48)
[2022-03-25] MEDS: hydrOXYzine PAMOATE 25 MG CAPSULE (FP) PO PRN (21:19)
[2022-03-25] MEDS: MELATONIN 5 MG TABLETS PO SCH (21:19)
[2022-03-25] MEDS: THIAMINE HCL 100 MG TABLET (FP) PO SCH (21:19)
[2022-03-25] MEDS: risperiDONE 2 MG TABLET PO SCH (21:19)
[2022-03-25] MEDS: MIRTAZAPINE 15 MG TABLET (FP) PO SCH (21:19)
[2022-03-25] MEDS: ATORVASTATIN CA 20 MG TABLET (FP) PO SCH (21:19)
[2022-03-26] MEDS: ESCITALOPRAM OXALATE 10 MG TABLET PO SCH (09:56)
[2022-03-26] MEDS: BICTEGRAV/EMTRICIT/TENOFOV (BIKTARVY) 50-200-25 MG TABLET PO SCH (09:56)
[2022-03-26] MEDS: PRENATAL VITAMINS W/ FOLIC ACID TABLET (FP) PO SCH (09:57)
[2022-03-26] MEDS: CHOLECALCIFEROL (VIT D3) 1,000 UNIT (25 MCG) TABLET PO SCH (09:57)
[2022-03-26] MEDS: MIRTAZAPINE 15 MG TABLET (FP) PO SCH (21:22)
[2022-03-26] MEDS: THIAMINE HCL 100 MG TABLET (FP) PO SCH (21:22)
[2022-03-26] MEDS: ATORVASTATIN CA 20 MG TABLET (FP) PO SCH (21:22)
[2022-03-26] MEDS: risperiDONE 2 MG TABLET PO SCH (21:22)
[2022-03-26] MEDS: MELATONIN 5 MG TABLETS PO SCH (21:22)
[2022-03-27] MEDS: ESCITALOPRAM OXALATE 10 MG TABLET PO SCH (09:52)
[2022-03-27] MEDS: BICTEGRAV/EMTRICIT/TENOFOV (BIKTARVY) 50-200-25 MG TABLET PO SCH (09:52)
[2022-03-27] MEDS: PRENATAL VITAMINS W/ FOLIC ACID TABLET (FP) PO SCH (09:53)
[2022-03-27] MEDS: CHOLECALCIFEROL (VIT D3) 1,000 UNIT (25 MCG) TABLET PO SCH (09:53)
[2022-03-27] MEDS: risperiDONE 2 MG TABLET PO SCH (21:14)
[2022-03-27] MEDS: MELATONIN 5 MG TABLETS PO SCH (21:14)
[2022-03-27] MEDS: hydrOXYzine PAMOATE 25 MG CAPSULE (FP) PO PRN (21:14)
[2022-03-27] MEDS: ATORVASTATIN CA 20 MG TABLET (FP) PO SCH (21:14)
[2022-03-27] MEDS: MIRTAZAPINE 15 MG TABLET (FP) PO SCH (21:14)
[2022-03-27] MEDS: THIAMINE HCL 100 MG TABLET (FP) PO SCH (21:14)
[2022-03-28] MEDS: BICTEGRAV/EMTRICIT/TENOFOV (BIKTARVY) 50-200-25 MG TABLET PO SCH (09:46)
[2022-03-28] MEDS: CHOLECALCIFEROL (VIT D3) 1,000 UNIT (25 MCG) TABLET PO SCH (09:46)
[2022-03-28] MEDS: PRENATAL VITAMINS W/ FOLIC ACID TABLET (FP) PO SCH (09:46)
[2022-03-28] MEDS: ESCITALOPRAM OXALATE 10 MG TABLET PO SCH (09:46)
[2022-03-28] MEDS: IBUPROFEN 400 MG TABLET (FP) PO PRN ×2 (09:47→21:15)
[2022-03-28] MEDS: hydrOXYzine PAMOATE 25 MG CAPSULE (FP) PO PRN (21:14)
[2022-03-28] MEDS: ATORVASTATIN CA 20 MG TABLET (FP) PO SCH (21:14)
[2022-03-28] MEDS: MELATONIN 5 MG TABLETS PO SCH (21:14)
[2022-03-28] MEDS: THIAMINE HCL 100 MG TABLET (FP) PO SCH (21:14)
[2022-03-28] MEDS: MIRTAZAPINE 15 MG TABLET (FP) PO SCH (21:14)
[2022-03-28] MEDS: risperiDONE 2 MG TABLET PO SCH (21:15)
[2022-03-29] MEDS: BICTEGRAV/EMTRICIT/TENOFOV (BIKTARVY) 50-200-25 MG TABLET PO SCH (09:51)
[2022-03-29] MEDS: CHOLECALCIFEROL (VIT D3) 1,000 UNIT (25 MCG) TABLET PO SCH (09:52)
[2022-03-29] MEDS: ESCITALOPRAM OXALATE 10 MG TABLET PO SCH (09:52)
[2022-03-29] MEDS: PRENATAL VITAMINS W/ FOLIC ACID TABLET (FP) PO SCH (09:52)
[2022-03-29] MEDS: THIAMINE HCL 100 MG TABLET (FP) PO SCH (21:14)
[2022-03-29] MEDS: hydrOXYzine PAMOATE 25 MG CAPSULE (FP) PO PRN (21:14)
[2022-03-29] MEDS: risperiDONE 2 MG TABLET PO SCH (21:15)
[2022-03-29] MEDS: ATORVASTATIN CA 20 MG TABLET (FP) PO SCH (21:15)
[2022-03-29] MEDS: IBUPROFEN 400 MG TABLET (FP) PO PRN (21:15)
[2022-03-29] MEDS: MIRTAZAPINE 15 MG TABLET (FP) PO SCH (21:15)
[2022-03-29] MEDS: MELATONIN 5 MG TABLETS PO SCH (21:17)
[2022-03-30] MEDS: ESCITALOPRAM OXALATE 10 MG TABLET PO SCH (09:33)
[2022-03-30] MEDS: BICTEGRAV/EMTRICIT/TENOFOV (BIKTARVY) 50-200-25 MG TABLET PO SCH (09:33)
[2022-03-30] MEDS: PRENATAL VITAMINS W/ FOLIC ACID TABLET (FP) PO SCH (09:33)
[2022-03-30] MEDS: CHOLECALCIFEROL (VIT D3) 1,000 UNIT (25 MCG) TABLET PO SCH (09:33)
[2022-03-30] MEDS: IBUPROFEN 400 MG TABLET (FP) PO PRN ×2 (11:55→21:12)
[2022-03-30] MEDS: hydrOXYzine PAMOATE 25 MG CAPSULE (FP) PO PRN (21:11)
[2022-03-30] MEDS: MELATONIN 5 MG TABLETS PO SCH (21:11)
[2022-03-30] MEDS: THIAMINE HCL 100 MG TABLET (FP) PO SCH (21:11)
[2022-03-30] MEDS: ATORVASTATIN CA 20 MG TABLET (FP) PO SCH (22:06)
[2022-03-30] MEDS: MIRTAZAPINE 15 MG TABLET (FP) PO SCH (22:06)
[2022-03-30] MEDS: risperiDONE 2 MG TABLET PO SCH (22:06)
[2022-03-31] MEDS: PRENATAL VITAMINS W/ FOLIC ACID TABLET (FP) PO SCH (09:36)
[2022-03-31] MEDS: CHOLECALCIFEROL (VIT D3) 1,000 UNIT (25 MCG) TABLET PO SCH (09:36)
[2022-03-31] MEDS: BICTEGRAV/EMTRICIT/TENOFOV (BIKTARVY) 50-200-25 MG TABLET PO SCH (09:36)
[2022-03-31] MEDS: ESCITALOPRAM OXALATE 10 MG TABLET PO SCH (09:36)
[2022-03-31] MEDS: hydrOXYzine PAMOATE 25 MG CAPSULE (FP) PO PRN (21:41)
[2022-03-31] MEDS: risperiDONE 2 MG TABLET PO SCH (21:41)
[2022-03-31] MEDS: MELATONIN 5 MG TABLETS PO SCH (21:41)
[2022-03-31] MEDS: ATORVASTATIN CA 20 MG TABLET (FP) PO SCH (21:41)
[2022-03-31] MEDS: MIRTAZAPINE 15 MG TABLET (FP) PO SCH (21:41)
[2022-03-31] MEDS: THIAMINE HCL 100 MG TABLET (FP) PO SCH (21:41)
[2022-03-31] MEDS: ACETAMINOPHEN 325 MG TABLET (FP) PO PRN (21:42)
[2022-04-01] MEDS: PRENATAL VITAMINS W/ FOLIC ACID TABLET (FP) PO SCH (09:45)
[2022-04-01] MEDS: CHOLECALCIFEROL (VIT D3) 1,000 UNIT (25 MCG) TABLET PO SCH (09:45)
[2022-04-01] MEDS: BICTEGRAV/EMTRICIT/TENOFOV (BIKTARVY) 50-200-25 MG TABLET PO SCH (09:45)
[2022-04-01] MEDS: ESCITALOPRAM OXALATE 10 MG TABLET PO SCH (09:45)
[2022-04-01] MEDS: IBUPROFEN 400 MG TABLET (FP) PO PRN ×2 (09:46→21:04)
[2022-04-01] MEDS: MELATONIN 5 MG TABLETS PO SCH (21:03)
[2022-04-01] MEDS: THIAMINE HCL 100 MG TABLET (FP) PO SCH (21:03)
[2022-04-01] MEDS: MIRTAZAPINE 15 MG TABLET (FP) PO SCH (21:04)
[2022-04-01] MEDS: hydrOXYzine PAMOATE 25 MG CAPSULE (FP) PO PRN (21:04)
[2022-04-01] MEDS: ATORVASTATIN CA 20 MG TABLET (FP) PO SCH (21:04)
[2022-04-01] MEDS: risperiDONE 2 MG TABLET PO SCH (21:04)
[2022-04-02] MEDS: PRENATAL VITAMINS W/ FOLIC ACID TABLET (FP) PO SCH (09:57)
[2022-04-02] MEDS: ESCITALOPRAM OXALATE 10 MG TABLET PO SCH (09:57)
[2022-04-02] MEDS: CHOLECALCIFEROL (VIT D3) 1,000 UNIT (25 MCG) TABLET PO SCH (09:57)
[2022-04-02] MEDS: BICTEGRAV/EMTRICIT/TENOFOV (BIKTARVY) 50-200-25 MG TABLET PO SCH (09:57)
[2022-04-02] MEDS: OFLOXACIN 0.3% OTIC SOLUTION 5 ML BOTTLE AS SCH ×4 (11:53→21:24)
[2022-04-02] MEDS: ATORVASTATIN CA 20 MG TABLET (FP) PO SCH (21:23)
[2022-04-02] MEDS: hydrOXYzine PAMOATE 25 MG CAPSULE (FP) PO PRN (21:23)
[2022-04-02] MEDS: risperiDONE 2 MG TABLET PO SCH (21:23)
[2022-04-02] MEDS: MIRTAZAPINE 15 MG TABLET (FP) PO SCH (21:23)
[2022-04-02] MEDS: MELATONIN 5 MG TABLETS PO SCH (21:23)
[2022-04-02] MEDS: THIAMINE HCL 100 MG TABLET (FP) PO SCH (21:24)
[2022-04-03] MEDS: CHOLECALCIFEROL (VIT D3) 1,000 UNIT (25 MCG) TABLET PO SCH (10:10)
[2022-04-03] MEDS: ESCITALOPRAM OXALATE 10 MG TABLET PO SCH (10:10)
[2022-04-03] MEDS: PRENATAL VITAMINS W/ FOLIC ACID TABLET (FP) PO SCH (10:10)
[2022-04-03] MEDS: BICTEGRAV/EMTRICIT/TENOFOV (BIKTARVY) 50-200-25 MG TABLET PO SCH (10:10)
[2022-04-03] MEDS: OFLOXACIN 0.3% OTIC SOLUTION 5 ML BOTTLE AS SCH ×4 (10:11→21:11)
[2022-04-03] MEDS: MELATONIN 5 MG TABLETS PO SCH (21:09)
[2022-04-03] MEDS: THIAMINE HCL 100 MG TABLET (FP) PO SCH (21:09)
[2022-04-03] MEDS: risperiDONE 2 MG TABLET PO SCH (21:10)
[2022-04-03] MEDS: hydrOXYzine PAMOATE 25 MG CAPSULE (FP) PO PRN (21:10)
[2022-04-03] MEDS: ATORVASTATIN CA 20 MG TABLET (FP) PO SCH (21:10)
[2022-04-03] MEDS: MIRTAZAPINE 15 MG TABLET (FP) PO SCH (21:10)
[2022-04-04 06:46] VITALS: BP 131/85; PULSE 71; RESP 18; TEMP 97.1
[2022-04-04] MEDS: CHOLECALCIFEROL (VIT D3) 1,000 UNIT (25 MCG) TABLET PO SCH (09:34)
[2022-04-04] MEDS: BICTEGRAV/EMTRICIT/TENOFOV (BIKTARVY) 50-200-25 MG TABLET PO SCH (09:34)
[2022-04-04] MEDS: ESCITALOPRAM OXALATE 10 MG TABLET PO SCH (09:34)
[2022-04-04] MEDS: PRENATAL VITAMINS W/ FOLIC ACID TABLET (FP) PO SCH (09:34)
[2022-04-04] MEDS: OFLOXACIN 0.3% OTIC SOLUTION 5 ML BOTTLE AS SCH (09:35)
== END 2022-04-04 10:18 | disposition home or self-care (01) | DRG 772 ==
LOC: YASAS 12:54 → Y3E 12:55
PROVIDERS: ADMIT Allergy & Immunology; ATTEND Psychiatry & Neurology Pain Medicine
PROC: HZ42ZZZ Group Counseling for Substance Abuse Treatment, Cognitive-Behavioral (ICD-10-PCS; principal; 2022-03-16)
DX: F10.20 Alcohol dependence, uncomplicated (principal); F14.20 Cocaine dependence, uncomplicated; F15.20 Other stimulant dependence, uncomplicated; Z21 Asymptomatic human immunodeficiency virus [HIV] infection status; H92.03 Otalgia, bilateral; W07.XXXA Fall from chair, initial encounter; Y93.89 Activity, other specified; Y92.238 Other place in hospital as the place of occurrence of the external cause; Z86.19 Personal history of other infectious and parasitic diseases

== ENCOUNTER 2022-06-27 11:40 | Inpatient (IN) | payer OTHER ==
[2022-06-27 12:20] VITALS: BMI 23.8
[2022-06-27] MEDS ORDERED: ACETAMINOPHEN 325 MG TABLET (FP) PO PRN ×2 (12:26)
[2022-06-27] MEDS ORDERED: BENZOCAINE/MENTHOL (CHLORASEPTIC ) LOZENGE MM PRN (12:26)
[2022-06-27] MEDS ORDERED: hydrOXYzine PAMOATE 25 MG CAPSULE (FP) PO PRN (12:26)
[2022-06-27] MEDS ORDERED: IBUPROFEN 600 MG TABLET (FP) PO PRN (12:26)
[2022-06-27] MEDS ORDERED: DICYCLOMINE HCL 10 MG CAPSULE PO PRN (12:26)
[2022-06-27] MEDS ORDERED: METHOCARBAMOL 500 MG TABLET PO PRN (12:26)
[2022-06-27] MEDS ORDERED: MAGNESIUM HYDROX 2400MG/30ML ORAL SUSPENSION 30 ML CUP PO PRN (12:26)
[2022-06-27] MEDS ORDERED: LOPERAMIDE HCL 2 MG CAPSULE PO PRN (12:26)
[2022-06-27] MEDS ORDERED: BISMUTH SUBSALICYLATE 524 MG/30 ML PO PRN (12:26)
[2022-06-27] MEDS ORDERED: POLYETHYLENE GLYCOL (HEALTHYLAX) 3350 17 GM PACKET PO PRN (12:26)
[2022-06-27] MEDS ORDERED: ONDANSETRON *ODT* 4 MG TABLET SL PRN (12:26)
[2022-06-27] MEDS ORDERED: chlordiazePOXIDE HCL 25 MG CAPSULE PO PRN (12:26)
[2022-06-27] MEDS ORDERED: NALOXONE HCL (KLOXXADO) 8 MG SPRAY NS PRN (12:26)
[2022-06-27] MEDS ORDERED: MAG HYDROX/AL HYDROX/SIMETH 30 ML UNIT-DOSE CUP PO PRN (12:26)
[2022-06-27] MEDS ORDERED: IBUPROFEN 400 MG TABLET (FP) PO PRN (12:26)
[2022-06-27] MEDS: PRENATAL VITAMINS W/ FOLIC ACID TABLET (FP) PO SCH (13:27)
[2022-06-27 15:19] LABS: HEMATOCRIT 39.3 % (35.4-49); HEMOGLOBIN 12.8 GM/dL (11.7-16.9); MCHC 32.5 g/dl (32.0-35.9); MEAN CELL VOLUME 82.8 fl (80-96); MEAN PLT VOLUME 7.7 fl (7.5-11.1); PLATELET COUNT 339 10^3/uL (134-434); RBC 4.75 M/mm3 (4.00-5.60); RDW 13.4 % (11.9-15.9); WHITE BLOOD COUNT 7.2 K/mm3 (4.0-10.0)
[2022-06-27 15:40] LABS: BLOOD UREA NITROGEN 15.3 mg/dL (7-18); CALCIUM 9.4 mg/dL (8.5-10.1)
[2022-06-27 15:43] LABS: CREATININE 1.1 mg/dL (0.55-1.3)
[2022-06-27 15:45] LABS: BILIRUBIN,TOTAL 0.4 mg/dL (0.2-1)
[2022-06-27 15:46] LABS: TOT PROT 7.1 g/dl (6.4-8.2)
[2022-06-27] MEDS: chlordiazePOXIDE HCL 25 MG CAPSULE PO SCH ×2 (17:21→22:26)
[2022-06-27] MEDS: THIAMINE HCL 100 MG TABLET (FP) PO SCH (22:26)
[2022-06-27] MEDS: MELATONIN 5 MG TABLETS PO SCH (22:26)
[2022-06-28] MEDS: chlordiazePOXIDE HCL 25 MG CAPSULE PO SCH ×4 (05:34→22:17)
[2022-06-28] MEDS: PRENATAL VITAMINS W/ FOLIC ACID TABLET (FP) PO SCH (10:16)
[2022-06-28] MEDS: LACTULOSE 20 GM/30 ML UDC (FOR ORAL USE ONLY) PO SCH ×4 (10:16→22:17)
[2022-06-28] MEDS: BICTEGRAV/EMTRICIT/TENOFOV (BIKTARVY) 50-200-25 MG TABLET PO SCH (10:43)
[2022-06-28] MEDS ORDERED: AMOX TR/POT CLAV 875MG/125MG TABLETS (FP) PO SCH (18:37)
[2022-06-28] MEDS: AMOX TR/POT CLAV 875MG/125MG TABLETS (FP) PO SCH (18:50)
[2022-06-28] MEDS: MELATONIN 5 MG TABLETS PO SCH (22:09)
[2022-06-28] MEDS: THIAMINE HCL 100 MG TABLET (FP) PO SCH (22:09)
[2022-06-28] MEDS: ATORVASTATIN CA 20 MG TABLET (FP) PO SCH (22:17)
[2022-06-29] MEDS: chlordiazePOXIDE HCL 25 MG CAPSULE PO SCH ×4 (05:27→22:08)
[2022-06-29] MEDS: AMOX TR/POT CLAV 875MG/125MG TABLETS (FP) PO SCH ×2 (07:02→17:32)
[2022-06-29] MEDS ORDERED: AMOX TR/POT CLAV 875MG/125MG TABLETS (FP) PO SCH (08:00)
[2022-06-29] MEDS: PRENATAL VITAMINS W/ FOLIC ACID TABLET (FP) PO SCH (10:28)
[2022-06-29] MEDS: LACTULOSE 20 GM/30 ML UDC (FOR ORAL USE ONLY) PO SCH ×4 (10:29→22:08)
[2022-06-29] MEDS: BICTEGRAV/EMTRICIT/TENOFOV (BIKTARVY) 50-200-25 MG TABLET PO SCH (10:29)
[2022-06-29] MEDS: ESCITALOPRAM OXALATE 10 MG TABLET PO SCH (10:30)
[2022-06-29] MEDS: MIRTAZAPINE 15 MG TABLET (FP) PO SCH (22:08)
[2022-06-29] MEDS: risperiDONE 2 MG TABLET PO SCH (22:08)
[2022-06-29] MEDS: THIAMINE HCL 100 MG TABLET (FP) PO SCH (22:08)
[2022-06-29] MEDS: ATORVASTATIN CA 20 MG TABLET (FP) PO SCH (22:08)
[2022-06-30] MEDS ORDERED: chlordiazePOXIDE HCL 10 MG CAPSULE PO PRN
[2022-06-30] MEDS: chlordiazePOXIDE HCL 10 MG CAPSULE PO SCH ×4 (05:24→22:07)
[2022-06-30] MEDS: AMOX TR/POT CLAV 875MG/125MG TABLETS (FP) PO SCH ×2 (08:06→17:51)
[2022-06-30] MEDS: BICTEGRAV/EMTRICIT/TENOFOV (BIKTARVY) 50-200-25 MG TABLET PO SCH (10:25)
[2022-06-30] MEDS: LACTULOSE 20 GM/30 ML UDC (FOR ORAL USE ONLY) PO SCH ×4 (10:25→22:07)
[2022-06-30] MEDS: ESCITALOPRAM OXALATE 10 MG TABLET PO SCH (10:25)
[2022-06-30] MEDS: PRENATAL VITAMINS W/ FOLIC ACID TABLET (FP) PO SCH (10:25)
[2022-06-30] MEDS: risperiDONE 2 MG TABLET PO SCH (22:07)
[2022-06-30] MEDS: THIAMINE HCL 100 MG TABLET (FP) PO SCH (22:07)
[2022-06-30] MEDS: MIRTAZAPINE 15 MG TABLET (FP) PO SCH (22:07)
[2022-06-30] MEDS: ATORVASTATIN CA 20 MG TABLET (FP) PO SCH (22:07)
[2022-07-01] MEDS: chlordiazePOXIDE HCL 10 MG CAPSULE PO SCH ×2 (05:46→17:33)
[2022-07-01] MEDS: ESCITALOPRAM OXALATE 10 MG TABLET PO SCH (10:16)
[2022-07-01] MEDS: BICTEGRAV/EMTRICIT/TENOFOV (BIKTARVY) 50-200-25 MG TABLET PO SCH (10:16)
[2022-07-01] MEDS: PRENATAL VITAMINS W/ FOLIC ACID TABLET (FP) PO SCH (10:16)
[2022-07-01] MEDS: LACTULOSE 20 GM/30 ML UDC (FOR ORAL USE ONLY) PO SCH ×4 (10:16→22:04)
[2022-07-01] MEDS: MIRTAZAPINE 15 MG TABLET (FP) PO SCH (22:05)
[2022-07-01] MEDS: risperiDONE 2 MG TABLET PO SCH (22:05)
[2022-07-01] MEDS: THIAMINE HCL 100 MG TABLET (FP) PO SCH (22:05)
[2022-07-01] MEDS: ATORVASTATIN CA 20 MG TABLET (FP) PO SCH (22:05)
[2022-07-02] MEDS ORDERED: chlordiazePOXIDE HCL 10 MG CAPSULE PO ONE (05:00)
[2022-07-02] MEDS: BICTEGRAV/EMTRICIT/TENOFOV (BIKTARVY) 50-200-25 MG TABLET PO SCH (10:22)
[2022-07-02] MEDS: LACTULOSE 20 GM/30 ML UDC (FOR ORAL USE ONLY) PO SCH (10:22)
[2022-07-02] MEDS: ESCITALOPRAM OXALATE 10 MG TABLET PO SCH (10:22)
[2022-07-02] MEDS: PRENATAL VITAMINS W/ FOLIC ACID TABLET (FP) PO SCH (10:22)
[2022-07-02 13:15] VITALS: BP 127/74; PULSE 94; RESP 20; TEMP 97.5
== END 2022-07-02 13:38 | disposition other institution (70) | DRG 775 ==
LOC: YASAS 11:40 → Y3N 12:44
PROVIDERS: ADMIT Allergy & Immunology; ATTEND Surgery
PROC: HZ2ZZZZ Detoxification Services for Substance Abuse Treatment (ICD-10-PCS; principal; 2022-06-27)
DX: F10.230 Alcohol dependence with withdrawal, uncomplicated (principal); F15.20 Other stimulant dependence, uncomplicated; F19.282 Other psychoactive substance dependence with psychoactive substance-induced sleep disorder; F19.24 Other psychoactive substance dependence with psychoactive substance-induced mood disorder; F25.1 Schizoaffective disorder, depressive type; F31.9 Bipolar disorder, unspecified; F43.10 Post-traumatic stress disorder, unspecified; Z21 Asymptomatic human immunodeficiency virus [HIV] infection status; E72.20 Disorder of urea cycle metabolism, unspecified; E78.2 Mixed hyperlipidemia; L02.414 Cutaneous abscess of left upper limb; Z86.19 Personal history of other infectious and parasitic diseases; Z59.02 Unsheltered homelessness
CPT/HCPCS: 36415; 80053; 82140; 85027; 86593; 86780; 87811; C9803-CS; U0003; U0005

== ENCOUNTER 2022-07-02 13:43 | Inpatient (IN) | payer OTHER ==
[~2022-07-02 13:43] MED LIST: ACETAMINOPHEN 325 MG TABLET (FP) PO PRN; BENZOCAINE/MENTHOL (CHLORASEPTIC ) LOZENGE MM PRN; IBUPROFEN 400 MG TABLET (FP) PO PRN; LOPERAMIDE HCL 2 MG CAPSULE PO PRN; MAG HYDROX/AL HYDROX/SIMETH 30 ML UNIT-DOSE CUP PO PRN; MAGNESIUM HYDROX 2400MG/30ML ORAL SUSPENSION 30 ML CUP PO PRN; NICOTINE 7 MG/24 HOURS TOPICAL PATCH TD PRN; NICOTINE POLACRILEX 2 MG GUM BC PRN; P-EPHED 60MG/TRIPROLIDI 2.5MG TABLET PO PRN; POLYETHYLENE GLYCOL (HEALTHYLAX) 3350 17 GM PACKET PO PRN; guaiFENesin 200 MG/10 ML 10 ML UNIT-DOSE CUPS PO PRN
[2022-07-02] MEDS: LACTULOSE 20 GM/30 ML UDC (FOR ORAL USE ONLY) PO SCH ×3 (17:57→21:09)
[2022-07-02] MEDS: MELATONIN 5 MG TABLETS PO SCH (21:06)
[2022-07-02] MEDS: THIAMINE HCL 100 MG TABLET (FP) PO SCH (21:07)
[2022-07-02] MEDS: risperiDONE 2 MG TABLET PO SCH (21:07)
[2022-07-02] MEDS: ATORVASTATIN CA 20 MG TABLET (FP) PO SCH (21:07)
[2022-07-02] MEDS: MIRTAZAPINE 15 MG TABLET (FP) PO SCH (21:07)
[2022-07-02 23:07] VITALS: RESP 18
[2022-07-03] MEDS: BICTEGRAV/EMTRICIT/TENOFOV (BIKTARVY) 50-200-25 MG TABLET PO SCH (07:23)
[2022-07-03] MEDS: ESCITALOPRAM OXALATE 10 MG TABLET PO SCH (09:57)
[2022-07-03] MEDS: LACTULOSE 20 GM/30 ML UDC (FOR ORAL USE ONLY) PO SCH ×4 (09:57→21:08)
[2022-07-03] MEDS: PRENATAL VITAMINS W/ FOLIC ACID TABLET (FP) PO SCH (09:57)
[2022-07-03 10:23] LABS: URINE APPEARANCE CLEAR; URINE BILIRUBIN NEGATIVE (NEGATIVE); URINE COLOR YELLOW; URINE GLUCOSE (UA) NEGATIVE (NEGATIVE); URINE KETONE NEGATIVE (NEGATIVE); URINE LEUK ESTERASE NEGATIVE (NEGATIVE); URINE NITRITE NEGATIVE (NEGATIVE); URINE PROTEIN NEGATIVE (NEGATIVE); URINE UROBILINOGEN 0.2 mg/dL (0.2-1.0)
[2022-07-03] MEDS ORDERED: FLU VACC QS2022-23(6MOS UP)/PF 60 MCG/0.5 ML SYRINGE IM ONE (12:00)
[2022-07-03] MEDS: risperiDONE 2 MG TABLET PO SCH (21:07)
[2022-07-03] MEDS: THIAMINE HCL 100 MG TABLET (FP) PO SCH (21:07)
[2022-07-03] MEDS: MIRTAZAPINE 15 MG TABLET (FP) PO SCH (21:07)
[2022-07-03] MEDS: MELATONIN 5 MG TABLETS PO SCH (21:07)
[2022-07-03] MEDS: hydrOXYzine PAMOATE 25 MG CAPSULE (FP) PO PRN (21:07)
[2022-07-03] MEDS: ATORVASTATIN CA 20 MG TABLET (FP) PO SCH (21:07)
[2022-07-04] MEDS: BICTEGRAV/EMTRICIT/TENOFOV (BIKTARVY) 50-200-25 MG TABLET PO SCH (07:35)
[2022-07-04] MEDS: LACTULOSE 20 GM/30 ML UDC (FOR ORAL USE ONLY) PO SCH ×4 (10:00→21:33)
[2022-07-04] MEDS: PRENATAL VITAMINS W/ FOLIC ACID TABLET (FP) PO SCH (10:00)
[2022-07-04] MEDS: ESCITALOPRAM OXALATE 10 MG TABLET PO SCH (10:00)
[2022-07-04] MEDS: MELATONIN 5 MG TABLETS PO SCH (21:32)
[2022-07-04] MEDS: MIRTAZAPINE 15 MG TABLET (FP) PO SCH (21:32)
[2022-07-04] MEDS: THIAMINE HCL 100 MG TABLET (FP) PO SCH (21:32)
[2022-07-04] MEDS: risperiDONE 2 MG TABLET PO SCH (21:32)
[2022-07-04] MEDS: ATORVASTATIN CA 20 MG TABLET (FP) PO SCH (21:33)
[2022-07-05] MEDS: BICTEGRAV/EMTRICIT/TENOFOV (BIKTARVY) 50-200-25 MG TABLET PO SCH (07:08)
[2022-07-05] MEDS: PRENATAL VITAMINS W/ FOLIC ACID TABLET (FP) PO SCH (10:30)
[2022-07-05] MEDS: ESCITALOPRAM OXALATE 10 MG TABLET PO SCH (10:30)
[2022-07-05] MEDS: LACTULOSE 20 GM/30 ML UDC (FOR ORAL USE ONLY) PO SCH ×4 (10:30→21:03)
[2022-07-05] MEDS: risperiDONE 2 MG TABLET PO SCH (21:03)
[2022-07-05] MEDS: ATORVASTATIN CA 20 MG TABLET (FP) PO SCH (21:03)
[2022-07-05] MEDS: MIRTAZAPINE 15 MG TABLET (FP) PO SCH (21:03)
[2022-07-05] MEDS: THIAMINE HCL 100 MG TABLET (FP) PO SCH (21:03)
[2022-07-05] MEDS: MELATONIN 5 MG TABLETS PO SCH (21:03)
[2022-07-06] MEDS: BICTEGRAV/EMTRICIT/TENOFOV (BIKTARVY) 50-200-25 MG TABLET PO SCH (07:26)
[2022-07-06] MEDS: PRENATAL VITAMINS W/ FOLIC ACID TABLET (FP) PO SCH (10:42)
[2022-07-06] MEDS: LACTULOSE 20 GM/30 ML UDC (FOR ORAL USE ONLY) PO SCH ×4 (10:42→21:01)
[2022-07-06] MEDS: ESCITALOPRAM OXALATE 10 MG TABLET PO SCH (10:42)
[2022-07-06] MEDS: ATORVASTATIN CA 20 MG TABLET (FP) PO SCH (21:01)
[2022-07-06] MEDS: MIRTAZAPINE 15 MG TABLET (FP) PO SCH (21:01)
[2022-07-06] MEDS: THIAMINE HCL 100 MG TABLET (FP) PO SCH (21:01)
[2022-07-06] MEDS: risperiDONE 2 MG TABLET PO SCH (21:01)
[2022-07-06] MEDS: MELATONIN 5 MG TABLETS PO SCH (21:01)
[2022-07-07] MEDS: BICTEGRAV/EMTRICIT/TENOFOV (BIKTARVY) 50-200-25 MG TABLET PO SCH (08:01)
[2022-07-07] MEDS: ESCITALOPRAM OXALATE 10 MG TABLET PO SCH (09:53)
[2022-07-07] MEDS: PRENATAL VITAMINS W/ FOLIC ACID TABLET (FP) PO SCH (09:53)
[2022-07-07] MEDS: LACTULOSE 20 GM/30 ML UDC (FOR ORAL USE ONLY) PO SCH ×4 (11:13→21:04)
[2022-07-07] MEDS: BACITRACIN 0.9 GM PACKET TP SCH ×2 (14:07→21:04)
[2022-07-07] MEDS: ATORVASTATIN CA 20 MG TABLET (FP) PO SCH (21:04)
[2022-07-07] MEDS: risperiDONE 2 MG TABLET PO SCH (21:04)
[2022-07-07] MEDS: MELATONIN 5 MG TABLETS PO SCH (21:04)
[2022-07-07] MEDS: THIAMINE HCL 100 MG TABLET (FP) PO SCH (21:04)
[2022-07-07] MEDS: MIRTAZAPINE 15 MG TABLET (FP) PO SCH (21:04)
[2022-07-08] MEDS: BICTEGRAV/EMTRICIT/TENOFOV (BIKTARVY) 50-200-25 MG TABLET PO SCH (07:42)
[2022-07-08] MEDS: ESCITALOPRAM OXALATE 10 MG TABLET PO SCH (09:57)
[2022-07-08] MEDS: PRENATAL VITAMINS W/ FOLIC ACID TABLET (FP) PO SCH (09:57)
[2022-07-08] MEDS: LACTULOSE 20 GM/30 ML UDC (FOR ORAL USE ONLY) PO SCH ×4 (09:57→21:10)
[2022-07-08] MEDS: BACITRACIN 0.9 GM PACKET TP SCH ×2 (09:57→21:46)
[2022-07-08] MEDS: MELATONIN 5 MG TABLETS PO SCH (21:09)
[2022-07-08] MEDS: risperiDONE 2 MG TABLET PO SCH (21:09)
[2022-07-08] MEDS: THIAMINE HCL 100 MG TABLET (FP) PO SCH (21:10)
[2022-07-08] MEDS: MIRTAZAPINE 15 MG TABLET (FP) PO SCH (21:10)
[2022-07-08] MEDS: ATORVASTATIN CA 20 MG TABLET (FP) PO SCH (21:10)
[2022-07-09] MEDS: BICTEGRAV/EMTRICIT/TENOFOV (BIKTARVY) 50-200-25 MG TABLET PO SCH (07:04)
[2022-07-09] MEDS: ESCITALOPRAM OXALATE 10 MG TABLET PO SCH (09:42)
[2022-07-09] MEDS: PRENATAL VITAMINS W/ FOLIC ACID TABLET (FP) PO SCH (09:42)
[2022-07-09] MEDS: BACITRACIN 0.9 GM PACKET TP SCH ×2 (09:42→21:04)
[2022-07-09] MEDS: LACTULOSE 20 GM/30 ML UDC (FOR ORAL USE ONLY) PO SCH ×4 (09:42→21:04)
[2022-07-09] MEDS: risperiDONE 2 MG TABLET PO SCH (21:04)
[2022-07-09] MEDS: ATORVASTATIN CA 20 MG TABLET (FP) PO SCH (21:04)
[2022-07-09] MEDS: MIRTAZAPINE 15 MG TABLET (FP) PO SCH (21:04)
[2022-07-09] MEDS: THIAMINE HCL 100 MG TABLET (FP) PO SCH (21:04)
[2022-07-09] MEDS: MELATONIN 5 MG TABLETS PO SCH (21:04)
[2022-07-10] MEDS: BICTEGRAV/EMTRICIT/TENOFOV (BIKTARVY) 50-200-25 MG TABLET PO SCH (07:01)
[2022-07-10] MEDS: LACTULOSE 20 GM/30 ML UDC (FOR ORAL USE ONLY) PO SCH ×4 (09:47→21:10)
[2022-07-10] MEDS: ESCITALOPRAM OXALATE 10 MG TABLET PO SCH (09:47)
[2022-07-10] MEDS: BACITRACIN 0.9 GM PACKET TP SCH ×2 (09:47→21:11)
[2022-07-10] MEDS: PRENATAL VITAMINS W/ FOLIC ACID TABLET (FP) PO SCH (09:48)
[2022-07-10] MEDS: hydrOXYzine PAMOATE 25 MG CAPSULE (FP) PO PRN (21:10)
[2022-07-10] MEDS: MIRTAZAPINE 15 MG TABLET (FP) PO SCH (21:10)
[2022-07-10] MEDS: ATORVASTATIN CA 20 MG TABLET (FP) PO SCH (21:10)
[2022-07-10] MEDS: THIAMINE HCL 100 MG TABLET (FP) PO SCH (21:10)
[2022-07-10] MEDS: risperiDONE 2 MG TABLET PO SCH (21:10)
[2022-07-10] MEDS: MELATONIN 5 MG TABLETS PO SCH (21:10)
[2022-07-11] MEDS: BICTEGRAV/EMTRICIT/TENOFOV (BIKTARVY) 50-200-25 MG TABLET PO SCH (08:18)
[2022-07-11] MEDS: ESCITALOPRAM OXALATE 10 MG TABLET PO SCH (09:33)
[2022-07-11] MEDS: PRENATAL VITAMINS W/ FOLIC ACID TABLET (FP) PO SCH (09:33)
[2022-07-11] MEDS: BACITRACIN 0.9 GM PACKET TP SCH ×2 (09:33→21:06)
[2022-07-11] MEDS: LACTULOSE 20 GM/30 ML UDC (FOR ORAL USE ONLY) PO SCH ×4 (09:33→21:06)
[2022-07-11] MEDS: NICOTINE 10 MG CARTRIDGE (INHALER) IH PRN (19:32)
[2022-07-11] MEDS: MIRTAZAPINE 15 MG TABLET (FP) PO SCH (21:06)
[2022-07-11] MEDS: ATORVASTATIN CA 20 MG TABLET (FP) PO SCH (21:06)
[2022-07-11] MEDS: THIAMINE HCL 100 MG TABLET (FP) PO SCH (21:06)
[2022-07-11] MEDS: risperiDONE 2 MG TABLET PO SCH (21:06)
[2022-07-11] MEDS: MELATONIN 5 MG TABLETS PO SCH (21:07)
[2022-07-12] MEDS: BICTEGRAV/EMTRICIT/TENOFOV (BIKTARVY) 50-200-25 MG TABLET PO SCH (07:06)
[2022-07-12] MEDS: LACTULOSE 20 GM/30 ML UDC (FOR ORAL USE ONLY) PO SCH ×4 (09:39→21:05)
[2022-07-12] MEDS: PRENATAL VITAMINS W/ FOLIC ACID TABLET (FP) PO SCH (09:39)
[2022-07-12] MEDS: ESCITALOPRAM OXALATE 10 MG TABLET PO SCH (09:39)
[2022-07-12] MEDS: BACITRACIN 0.9 GM PACKET TP SCH ×2 (09:39→21:05)
[2022-07-12] MEDS: NICOTINE 10 MG CARTRIDGE (INHALER) IH PRN (18:16)
[2022-07-12] MEDS: MELATONIN 5 MG TABLETS PO SCH (21:05)
[2022-07-12] MEDS: THIAMINE HCL 100 MG TABLET (FP) PO SCH (21:05)
[2022-07-12] MEDS: risperiDONE 2 MG TABLET PO SCH (21:06)
[2022-07-12] MEDS: MIRTAZAPINE 15 MG TABLET (FP) PO SCH (21:06)
[2022-07-12] MEDS: ATORVASTATIN CA 20 MG TABLET (FP) PO SCH (21:06)
[2022-07-13] MEDS: BICTEGRAV/EMTRICIT/TENOFOV (BIKTARVY) 50-200-25 MG TABLET PO SCH (07:04)
[2022-07-13] MEDS: BACITRACIN 0.9 GM PACKET TP SCH ×2 (09:36→21:05)
[2022-07-13] MEDS: LACTULOSE 20 GM/30 ML UDC (FOR ORAL USE ONLY) PO SCH ×4 (09:36→21:05)
[2022-07-13] MEDS: PRENATAL VITAMINS W/ FOLIC ACID TABLET (FP) PO SCH (09:36)
[2022-07-13] MEDS: ESCITALOPRAM OXALATE 10 MG TABLET PO SCH (09:36)
[2022-07-13] MEDS: MELATONIN 5 MG TABLETS PO SCH (21:04)
[2022-07-13] MEDS: risperiDONE 2 MG TABLET PO SCH (21:05)
[2022-07-13] MEDS: ATORVASTATIN CA 20 MG TABLET (FP) PO SCH (21:05)
[2022-07-13] MEDS: THIAMINE HCL 100 MG TABLET (FP) PO SCH (21:05)
[2022-07-13] MEDS: MIRTAZAPINE 15 MG TABLET (FP) PO SCH (21:05)
[2022-07-14] MEDS: BICTEGRAV/EMTRICIT/TENOFOV (BIKTARVY) 50-200-25 MG TABLET PO SCH (07:06)
[2022-07-14] MEDS: PRENATAL VITAMINS W/ FOLIC ACID TABLET (FP) PO SCH (09:33)
[2022-07-14] MEDS: ESCITALOPRAM OXALATE 10 MG TABLET PO SCH (09:33)
[2022-07-14] MEDS: LACTULOSE 20 GM/30 ML UDC (FOR ORAL USE ONLY) PO SCH ×4 (09:33→21:04)
[2022-07-14] MEDS: BACITRACIN 0.9 GM PACKET TP SCH ×2 (09:42→21:04)
[2022-07-14] MEDS: MELATONIN 5 MG TABLETS PO SCH (21:04)
[2022-07-14] MEDS: ATORVASTATIN CA 20 MG TABLET (FP) PO SCH (21:04)
[2022-07-14] MEDS: THIAMINE HCL 100 MG TABLET (FP) PO SCH (21:04)
[2022-07-14] MEDS: MIRTAZAPINE 15 MG TABLET (FP) PO SCH (21:04)
[2022-07-14] MEDS: risperiDONE 2 MG TABLET PO SCH (21:04)
[2022-07-14] MEDS: NICOTINE 10 MG CARTRIDGE (INHALER) IH PRN (21:05)
[2022-07-15] MEDS: BICTEGRAV/EMTRICIT/TENOFOV (BIKTARVY) 50-200-25 MG TABLET PO SCH (07:09)
[2022-07-15] MEDS: PRENATAL VITAMINS W/ FOLIC ACID TABLET (FP) PO SCH (09:41)
[2022-07-15] MEDS: BACITRACIN 0.9 GM PACKET TP SCH ×2 (09:42→21:09)
[2022-07-15] MEDS: LACTULOSE 20 GM/30 ML UDC (FOR ORAL USE ONLY) PO SCH ×4 (09:42→21:09)
[2022-07-15] MEDS: ESCITALOPRAM OXALATE 10 MG TABLET PO SCH (09:42)
[2022-07-15] MEDS: THIAMINE HCL 100 MG TABLET (FP) PO SCH (21:09)
[2022-07-15] MEDS: ATORVASTATIN CA 20 MG TABLET (FP) PO SCH (21:09)
[2022-07-15] MEDS: MELATONIN 5 MG TABLETS PO SCH (21:09)
[2022-07-15] MEDS: risperiDONE 2 MG TABLET PO SCH (21:09)
[2022-07-15] MEDS: MIRTAZAPINE 15 MG TABLET (FP) PO SCH (21:09)
[2022-07-16] MEDS: BICTEGRAV/EMTRICIT/TENOFOV (BIKTARVY) 50-200-25 MG TABLET PO SCH (07:05)
[2022-07-16] MEDS: PRENATAL VITAMINS W/ FOLIC ACID TABLET (FP) PO SCH (09:47)
[2022-07-16] MEDS: ESCITALOPRAM OXALATE 10 MG TABLET PO SCH (09:48)
[2022-07-16] MEDS: BACITRACIN 0.9 GM PACKET TP SCH ×2 (09:48→21:10)
[2022-07-16] MEDS: LACTULOSE 20 GM/30 ML UDC (FOR ORAL USE ONLY) PO SCH (09:49)
[2022-07-16] MEDS: THIAMINE HCL 100 MG TABLET (FP) PO SCH (21:10)
[2022-07-16] MEDS: ATORVASTATIN CA 20 MG TABLET (FP) PO SCH (21:10)
[2022-07-16] MEDS: risperiDONE 2 MG TABLET PO SCH (21:10)
[2022-07-16] MEDS: MIRTAZAPINE 15 MG TABLET (FP) PO SCH (21:10)
[2022-07-16] MEDS: MELATONIN 5 MG TABLETS PO SCH (21:10)
[2022-07-17] MEDS: BICTEGRAV/EMTRICIT/TENOFOV (BIKTARVY) 50-200-25 MG TABLET PO SCH (07:00)
[2022-07-17] MEDS: PRENATAL VITAMINS W/ FOLIC ACID TABLET (FP) PO SCH (09:42)
[2022-07-17] MEDS: LACTULOSE 20 GM/30 ML UDC (FOR ORAL USE ONLY) PO SCH (09:43)
[2022-07-17] MEDS: ESCITALOPRAM OXALATE 10 MG TABLET PO SCH (09:43)
[2022-07-17] MEDS: BACITRACIN 0.9 GM PACKET TP SCH ×2 (09:43→21:08)
[2022-07-17] MEDS: THIAMINE HCL 100 MG TABLET (FP) PO SCH (21:07)
[2022-07-17] MEDS: MELATONIN 5 MG TABLETS PO SCH (21:07)
[2022-07-17] MEDS: ATORVASTATIN CA 20 MG TABLET (FP) PO SCH (21:08)
[2022-07-17] MEDS: risperiDONE 2 MG TABLET PO SCH (21:08)
[2022-07-17] MEDS: MIRTAZAPINE 15 MG TABLET (FP) PO SCH (21:08)
[2022-07-18] MEDS: BICTEGRAV/EMTRICIT/TENOFOV (BIKTARVY) 50-200-25 MG TABLET PO SCH (07:08)
[2022-07-18] MEDS: BACITRACIN 0.9 GM PACKET TP SCH ×2 (09:39→21:07)
[2022-07-18] MEDS: ESCITALOPRAM OXALATE 10 MG TABLET PO SCH (09:39)
[2022-07-18] MEDS: PRENATAL VITAMINS W/ FOLIC ACID TABLET (FP) PO SCH (09:39)
[2022-07-18] MEDS: LACTULOSE 20 GM/30 ML UDC (FOR ORAL USE ONLY) PO SCH (09:39)
[2022-07-18] MEDS: THIAMINE HCL 100 MG TABLET (FP) PO SCH (21:07)
[2022-07-18] MEDS: MIRTAZAPINE 15 MG TABLET (FP) PO SCH (21:07)
[2022-07-18] MEDS: ATORVASTATIN CA 20 MG TABLET (FP) PO SCH (21:07)
[2022-07-18] MEDS: MELATONIN 5 MG TABLETS PO SCH (21:07)
[2022-07-18] MEDS: risperiDONE 2 MG TABLET PO SCH (21:08)
[2022-07-19] MEDS: BICTEGRAV/EMTRICIT/TENOFOV (BIKTARVY) 50-200-25 MG TABLET PO SCH (07:05)
[2022-07-19] MEDS: PRENATAL VITAMINS W/ FOLIC ACID TABLET (FP) PO SCH (09:51)
[2022-07-19] MEDS: ESCITALOPRAM OXALATE 10 MG TABLET PO SCH (09:52)
[2022-07-19] MEDS: LACTULOSE 20 GM/30 ML UDC (FOR ORAL USE ONLY) PO SCH (09:52)
[2022-07-19] MEDS: BACITRACIN 0.9 GM PACKET TP SCH ×2 (09:52→21:14)
[2022-07-19] MEDS: NICOTINE 10 MG CARTRIDGE (INHALER) IH PRN (17:51)
[2022-07-19] MEDS: MELATONIN 5 MG TABLETS PO SCH (21:14)
[2022-07-19] MEDS: MIRTAZAPINE 15 MG TABLET (FP) PO SCH (21:14)
[2022-07-19] MEDS: ATORVASTATIN CA 20 MG TABLET (FP) PO SCH (21:14)
[2022-07-19] MEDS: risperiDONE 2 MG TABLET PO SCH (21:14)
[2022-07-19] MEDS: THIAMINE HCL 100 MG TABLET (FP) PO SCH (21:14)
[2022-07-20] MEDS: BICTEGRAV/EMTRICIT/TENOFOV (BIKTARVY) 50-200-25 MG TABLET PO SCH (07:05)
[2022-07-20] MEDS: PRENATAL VITAMINS W/ FOLIC ACID TABLET (FP) PO SCH (09:58)
[2022-07-20] MEDS: ESCITALOPRAM OXALATE 10 MG TABLET PO SCH (09:59)
[2022-07-20] MEDS: BACITRACIN 0.9 GM PACKET TP SCH ×2 (09:59→21:09)
[2022-07-20] MEDS: NICOTINE 10 MG CARTRIDGE (INHALER) IH PRN (19:46)
[2022-07-20] MEDS: MIRTAZAPINE 15 MG TABLET (FP) PO SCH (21:08)
[2022-07-20] MEDS: MELATONIN 5 MG TABLETS PO SCH (21:08)
[2022-07-20] MEDS: THIAMINE HCL 100 MG TABLET (FP) PO SCH (21:08)
[2022-07-20] MEDS: ATORVASTATIN CA 20 MG TABLET (FP) PO SCH (21:08)
[2022-07-20] MEDS: risperiDONE 2 MG TABLET PO SCH (22:11)
[2022-07-21] MEDS: BICTEGRAV/EMTRICIT/TENOFOV (BIKTARVY) 50-200-25 MG TABLET PO SCH (07:01)
[2022-07-21] MEDS: ESCITALOPRAM OXALATE 10 MG TABLET PO SCH (09:52)
[2022-07-21] MEDS: BACITRACIN 0.9 GM PACKET TP SCH ×2 (09:52→21:02)
[2022-07-21] MEDS: PRENATAL VITAMINS W/ FOLIC ACID TABLET (FP) PO SCH (09:52)
[2022-07-21] MEDS: THIAMINE HCL 100 MG TABLET (FP) PO SCH (21:02)
[2022-07-21] MEDS: MELATONIN 5 MG TABLETS PO SCH (21:02)
[2022-07-21] MEDS: ATORVASTATIN CA 20 MG TABLET (FP) PO SCH (21:02)
[2022-07-21] MEDS: MIRTAZAPINE 15 MG TABLET (FP) PO SCH (21:02)
[2022-07-21] MEDS: risperiDONE 2 MG TABLET PO SCH (21:02)
[2022-07-22] MEDS: BICTEGRAV/EMTRICIT/TENOFOV (BIKTARVY) 50-200-25 MG TABLET PO SCH (07:11)
[2022-07-22] MEDS: ESCITALOPRAM OXALATE 10 MG TABLET PO SCH (09:49)
[2022-07-22] MEDS: BACITRACIN 0.9 GM PACKET TP SCH ×2 (09:49→21:18)
[2022-07-22] MEDS: PRENATAL VITAMINS W/ FOLIC ACID TABLET (FP) PO SCH (09:50)
[2022-07-22] MEDS: MIRTAZAPINE 15 MG TABLET (FP) PO SCH (21:19)
[2022-07-22] MEDS: risperiDONE 2 MG TABLET PO SCH (21:19)
[2022-07-22] MEDS: ATORVASTATIN CA 20 MG TABLET (FP) PO SCH (21:19)
[2022-07-22] MEDS: THIAMINE HCL 100 MG TABLET (FP) PO SCH (21:19)
[2022-07-22] MEDS: MELATONIN 5 MG TABLETS PO SCH (21:20)
[2022-07-23] MEDS: BICTEGRAV/EMTRICIT/TENOFOV (BIKTARVY) 50-200-25 MG TABLET PO SCH (07:21)
[2022-07-23] MEDS: BACITRACIN 0.9 GM PACKET TP SCH ×2 (10:25→21:11)
[2022-07-23] MEDS: PRENATAL VITAMINS W/ FOLIC ACID TABLET (FP) PO SCH (10:26)
[2022-07-23] MEDS: ESCITALOPRAM OXALATE 10 MG TABLET PO SCH (10:26)
[2022-07-23] MEDS: risperiDONE 2 MG TABLET PO SCH (21:11)
[2022-07-23] MEDS: MIRTAZAPINE 15 MG TABLET (FP) PO SCH (21:11)
[2022-07-23] MEDS: MELATONIN 5 MG TABLETS PO SCH (21:11)
[2022-07-23] MEDS: THIAMINE HCL 100 MG TABLET (FP) PO SCH (21:12)
[2022-07-23] MEDS: hydrOXYzine PAMOATE 25 MG CAPSULE (FP) PO PRN (21:12)
[2022-07-23] MEDS: ATORVASTATIN CA 20 MG TABLET (FP) PO SCH (21:13)
[2022-07-24] MEDS: BICTEGRAV/EMTRICIT/TENOFOV (BIKTARVY) 50-200-25 MG TABLET PO SCH (07:00)
[2022-07-24] MEDS: ESCITALOPRAM OXALATE 10 MG TABLET PO SCH (10:30)
[2022-07-24] MEDS: PRENATAL VITAMINS W/ FOLIC ACID TABLET (FP) PO SCH (10:30)
[2022-07-24] MEDS: BACITRACIN 0.9 GM PACKET TP SCH ×2 (10:30→21:22)
[2022-07-24] MEDS: risperiDONE 2 MG TABLET PO SCH (21:22)
[2022-07-24] MEDS: MIRTAZAPINE 15 MG TABLET (FP) PO SCH (21:22)
[2022-07-24] MEDS: THIAMINE HCL 100 MG TABLET (FP) PO SCH (21:22)
[2022-07-24] MEDS: MELATONIN 5 MG TABLETS PO SCH (21:23)
[2022-07-24] MEDS: hydrOXYzine PAMOATE 25 MG CAPSULE (FP) PO PRN (21:23)
[2022-07-24] MEDS: ATORVASTATIN CA 20 MG TABLET (FP) PO SCH (21:34)
[2022-07-25] MEDS: BICTEGRAV/EMTRICIT/TENOFOV (BIKTARVY) 50-200-25 MG TABLET PO SCH (07:08)
[2022-07-25] MEDS: ESCITALOPRAM OXALATE 10 MG TABLET PO SCH (10:06)
[2022-07-25] MEDS: BACITRACIN 0.9 GM PACKET TP SCH ×2 (10:06→21:23)
[2022-07-25] MEDS: PRENATAL VITAMINS W/ FOLIC ACID TABLET (FP) PO SCH (10:06)
[2022-07-25] MEDS: ATORVASTATIN CA 20 MG TABLET (FP) PO SCH (21:22)
[2022-07-25] MEDS: risperiDONE 2 MG TABLET PO SCH (21:22)
[2022-07-25] MEDS: THIAMINE HCL 100 MG TABLET (FP) PO SCH (21:22)
[2022-07-25] MEDS: MELATONIN 5 MG TABLETS PO SCH (21:22)
[2022-07-25] MEDS: hydrOXYzine PAMOATE 25 MG CAPSULE (FP) PO PRN (21:23)
[2022-07-25] MEDS: MIRTAZAPINE 15 MG TABLET (FP) PO SCH (21:23)
[2022-07-26] MEDS: BICTEGRAV/EMTRICIT/TENOFOV (BIKTARVY) 50-200-25 MG TABLET PO SCH (07:08)
[2022-07-26] MEDS: BACITRACIN 0.9 GM PACKET TP SCH ×2 (10:12→21:17)
[2022-07-26] MEDS: PRENATAL VITAMINS W/ FOLIC ACID TABLET (FP) PO SCH (10:12)
[2022-07-26] MEDS: ESCITALOPRAM OXALATE 10 MG TABLET PO SCH (10:12)
[2022-07-26] MEDS: MELATONIN 5 MG TABLETS PO SCH (21:16)
[2022-07-26] MEDS: ATORVASTATIN CA 20 MG TABLET (FP) PO SCH (21:17)
[2022-07-26] MEDS: MIRTAZAPINE 15 MG TABLET (FP) PO SCH (21:17)
[2022-07-26] MEDS: hydrOXYzine PAMOATE 25 MG CAPSULE (FP) PO PRN (21:17)
[2022-07-26] MEDS: risperiDONE 2 MG TABLET PO SCH (21:17)
[2022-07-26] MEDS: THIAMINE HCL 100 MG TABLET (FP) PO SCH (21:17)
[2022-07-27] MEDS: BICTEGRAV/EMTRICIT/TENOFOV (BIKTARVY) 50-200-25 MG TABLET PO SCH (07:08)
[2022-07-27] MEDS: PRENATAL VITAMINS W/ FOLIC ACID TABLET (FP) PO SCH (10:18)
[2022-07-27] MEDS: ESCITALOPRAM OXALATE 10 MG TABLET PO SCH (10:18)
[2022-07-27] MEDS: BACITRACIN 0.9 GM PACKET TP SCH ×2 (10:18→21:22)
[2022-07-27] MEDS: MIRTAZAPINE 15 MG TABLET (FP) PO SCH (21:21)
[2022-07-27] MEDS: ATORVASTATIN CA 20 MG TABLET (FP) PO SCH (21:21)
[2022-07-27] MEDS: THIAMINE HCL 100 MG TABLET (FP) PO SCH (21:21)
[2022-07-27] MEDS: MELATONIN 5 MG TABLETS PO SCH (21:21)
[2022-07-27] MEDS: risperiDONE 2 MG TABLET PO SCH (21:22)
[2022-07-27] MEDS: hydrOXYzine PAMOATE 25 MG CAPSULE (FP) PO PRN (21:22)
[2022-07-28] MEDS: BICTEGRAV/EMTRICIT/TENOFOV (BIKTARVY) 50-200-25 MG TABLET PO SCH (07:00)
[2022-07-28 07:19] VITALS: BP 126/82; PULSE 86; TEMP 98.7
[2022-07-28] MEDS: ESCITALOPRAM OXALATE 10 MG TABLET PO SCH (10:02)
[2022-07-28] MEDS: PRENATAL VITAMINS W/ FOLIC ACID TABLET (FP) PO SCH (10:03)
[2022-07-28] MEDS: BACITRACIN 0.9 GM PACKET TP SCH (10:03)
== END 2022-07-28 11:10 | disposition home or self-care (01) | DRG 772 ==
LOC: YASAS 13:43 → Y5N 13:44
PROVIDERS: ADMIT Allergy & Immunology; ATTEND Psychiatry & Neurology Pain Medicine
PROC: HZ42ZZZ Group Counseling for Substance Abuse Treatment, Cognitive-Behavioral (ICD-10-PCS; principal; 2022-07-02)
DX: F10.20 Alcohol dependence, uncomplicated (principal); F15.20 Other stimulant dependence, uncomplicated; F25.1 Schizoaffective disorder, depressive type; F31.9 Bipolar disorder, unspecified; F41.9 Anxiety disorder, unspecified; Z21 Asymptomatic human immunodeficiency virus [HIV] infection status; E78.5 Hyperlipidemia, unspecified; R79.89 Other specified abnormal findings of blood chemistry; Z86.19 Personal history of other infectious and parasitic diseases
CPT/HCPCS: 81003; 82140

== ENCOUNTER 2022-12-08 14:37 | Inpatient (IN) | payer OTHER ==
[2022-12-08 15:08] VITALS: BMI 24.3
[2022-12-08] MEDS ORDERED: cloNIDine HCL 0.1 MG TABLET PO PRN (16:02)
[2022-12-08] MEDS ORDERED: POLYETHYLENE GLYCOL (HEALTHYLAX) 3350 17 GM PACKET PO PRN (16:02)
[2022-12-08] MEDS ORDERED: IBUPROFEN 600 MG TABLET (FP) PO PRN (16:02)
[2022-12-08] MEDS ORDERED: MAGNESIUM HYDROX 2400MG/30ML ORAL SUSPENSION 30 ML CUP PO PRN (16:02)
[2022-12-08] MEDS ORDERED: NALOXONE HCL (KLOXXADO) 8 MG SPRAY NS PRN (16:02)
[2022-12-08] MEDS ORDERED: BISMUTH SUBSALICYLATE 524 MG/30 ML PO PRN (16:02)
[2022-12-08] MEDS ORDERED: guaiFENesin 600 MG TABLET.ER (FP) PO PRN (16:02)
[2022-12-08] MEDS ORDERED: NICOTINE 10 MG CARTRIDGE (INHALER) IH PRN (16:02)
[2022-12-08] MEDS ORDERED: BENZONATATE 200 MG CAPSULE PO PRN (16:02)
[2022-12-08] MEDS ORDERED: IBUPROFEN 400 MG TABLET (FP) PO PRN (16:02)
[2022-12-08] MEDS ORDERED: hydrOXYzine PAMOATE 25 MG CAPSULE (FP) PO PRN (16:02)
[2022-12-08] MEDS ORDERED: METHOCARBAMOL 500 MG TABLET PO PRN (16:02)
[2022-12-08] MEDS ORDERED: NALOXONE HCL 0.4 MG/ML VIAL IM PRN (16:02)
[2022-12-08] MEDS ORDERED: MAG HYDROX/AL HYDROX/SIMETH 30 ML UNIT-DOSE CUP PO PRN (16:02)
[2022-12-08] MEDS ORDERED: DICYCLOMINE HCL 10 MG CAPSULE PO PRN (16:02)
[2022-12-08] MEDS ORDERED: COLLOIDAL OATMEAL 1 BAR EACH TP PRN (16:02)
[2022-12-08] MEDS ORDERED: BENZOCAINE/MENTHOL (CHLORASEPTIC ) LOZENGE MM PRN (16:02)
[2022-12-08] MEDS ORDERED: LOPERAMIDE HCL 2 MG CAPSULE PO PRN (16:02)
[2022-12-08] MEDS ORDERED: AMMONIUM LACTATE 12% LOTION 225 GM BOTTLE TP PRN (16:02)
[2022-12-08] MEDS ORDERED: ACETAMINOPHEN 325 MG TABLET (FP) PO PRN (16:02)
[2022-12-08] MEDS ORDERED: methaDONE HCL 10 MG TABLET (FOR DETOX USE ONLY) PO ONE ×2 (16:02→18:00)
[2022-12-08] MEDS: BICTEGRAV/EMTRICIT/TENOFOV (BIKTARVY) 50-200-25 MG TABLET PO SCH (18:13)
[2022-12-08] MEDS: MELATONIN 5 MG TABLETS PO SCH (22:18)
[2022-12-08] MEDS: THIAMINE HCL 100 MG TABLET (FP) PO SCH (22:18)
[2022-12-08] MEDS: CHOLECALCIFEROL (VIT D3) 1,000 UNIT (25 MCG) TABLET PO SCH (22:18)
[2022-12-08] MEDS: ATORVASTATIN CA 20 MG TABLET (FP) PO SCH (22:18)
[2022-12-09] MEDS: ONDANSETRON *ODT* 4 MG TABLET SL PRN (08:00)
[2022-12-09] MEDS: PRENATAL VITAMINS W/ FOLIC ACID TABLET (FP) PO SCH (10:24)
[2022-12-09] MEDS: BICTEGRAV/EMTRICIT/TENOFOV (BIKTARVY) 50-200-25 MG TABLET PO SCH (10:25)
[2022-12-09] MEDS: CHOLECALCIFEROL (VIT D3) 1,000 UNIT (25 MCG) TABLET PO SCH (10:25)
[2022-12-09 11:59] LABS: POTASSIUM 4.2 mmol/L (3.5-5.1)
[2022-12-09 12:02] LABS: HEMATOCRIT 41.8 % (35.4-49); MCH 27.9 pg (25.7-33.7); MCHC 33.6 g/dl (32.0-35.9); MEAN CELL VOLUME 83.1 fl (80-96); MEAN PLT VOLUME 8.1 fl (7.5-11.1); PLATELET COUNT 305 10^3/uL (134-434); RBC 5.03 M/mm3 (4.00-5.60); RDW 13.8 % (11.9-15.9); WHITE BLOOD COUNT 4.7 K/mm3 (4.0-10.0)
[2022-12-09 12:12] LABS: CALCIUM 9.4 mg/dL (8.5-10.1)
[2022-12-09 12:13] LABS: ALBUMIN 3.1 g/dl (3.4-5.0); BILIRUBIN,TOTAL 0.7 mg/dL (0.2-1); BLOOD UREA NITROGEN 10.4 mg/dL (7-18); TOT PROT 7.2 g/dl (6.4-8.2)
[2022-12-09] MEDS: ATORVASTATIN CA 20 MG TABLET (FP) PO SCH (22:09)
[2022-12-09] MEDS: MELATONIN 5 MG TABLETS PO SCH (22:09)
[2022-12-09] MEDS: MIRTAZAPINE 15 MG TABLET (FP) PO SCH (22:09)
[2022-12-09] MEDS: THIAMINE HCL 100 MG TABLET (FP) PO SCH (22:10)
[2022-12-09] MEDS: risperiDONE 2 MG TABLET PO SCH (22:10)
[2022-12-10] MEDS ORDERED: methaDONE HCL 10 MG TABLET (FOR DETOX USE ONLY) PO ONE (10:00)
[2022-12-10] MEDS: BICTEGRAV/EMTRICIT/TENOFOV (BIKTARVY) 50-200-25 MG TABLET PO SCH (10:16)
[2022-12-10] MEDS: ESCITALOPRAM OXALATE 10 MG TABLET PO SCH (10:16)
[2022-12-10] MEDS: PRENATAL VITAMINS W/ FOLIC ACID TABLET (FP) PO SCH (10:16)
[2022-12-10] MEDS: CHOLECALCIFEROL (VIT D3) 1,000 UNIT (25 MCG) TABLET PO SCH (10:21)
[2022-12-10] MEDS: ONDANSETRON *ODT* 4 MG TABLET SL PRN (12:05)
[2022-12-10] MEDS: MIRTAZAPINE 15 MG TABLET (FP) PO SCH (21:50)
[2022-12-10] MEDS: THIAMINE HCL 100 MG TABLET (FP) PO SCH (21:50)
[2022-12-10] MEDS: risperiDONE 2 MG TABLET PO SCH (21:50)
[2022-12-10] MEDS: MELATONIN 5 MG TABLETS PO SCH (21:50)
[2022-12-10] MEDS: ATORVASTATIN CA 20 MG TABLET (FP) PO SCH (21:50)
[2022-12-11] MEDS: ESCITALOPRAM OXALATE 10 MG TABLET PO SCH (10:12)
[2022-12-11] MEDS: BICTEGRAV/EMTRICIT/TENOFOV (BIKTARVY) 50-200-25 MG TABLET PO SCH (10:12)
[2022-12-11] MEDS: CHOLECALCIFEROL (VIT D3) 1,000 UNIT (25 MCG) TABLET PO SCH (10:12)
[2022-12-11] MEDS: PRENATAL VITAMINS W/ FOLIC ACID TABLET (FP) PO SCH (10:14)
[2022-12-11] MEDS ORDERED: FLUOCINONIDE 0.05% CREAM (15 GM TUBE) TP SCH (14:00)
[2022-12-11 16:57] VITALS: BP 113/71; PULSE 85; RESP 20; TEMP 97.7
[2022-12-12] MEDS ORDERED: methaDONE HCL 10 MG TABLET (FOR DETOX USE ONLY) PO ONE (10:00)
== END 2022-12-11 17:55 | disposition other institution (70) | DRG 773 ==
LOC: YASAS 14:37 → Y3N 16:26
PROVIDERS: ADMIT Allergy & Immunology; ATTEND Surgery
PROC: HZ2ZZZZ Detoxification Services for Substance Abuse Treatment (ICD-10-PCS; principal; 2022-12-08)
DX: F11.23 Opioid dependence with withdrawal (principal); F10.20 Alcohol dependence, uncomplicated; F15.20 Other stimulant dependence, uncomplicated; F25.1 Schizoaffective disorder, depressive type; Z21 Asymptomatic human immunodeficiency virus [HIV] infection status; Z79.899 Other long term (current) drug therapy; E78.5 Hyperlipidemia, unspecified; R79.89 Other specified abnormal findings of blood chemistry; Z91.51 Personal history of suicidal behavior; Z86.19 Personal history of other infectious and parasitic diseases; Z91.148 Patient's other noncompliance with medication regimen for other reason; Z86.59 Personal history of other mental and behavioral disorders
CPT/HCPCS: 36415; 80053; 85027; 86593; 86780; C9803-CS; Q0162; U0003; U0005

== ENCOUNTER 2022-12-11 18:04 | Inpatient (IN) | payer OTHER ==
[2022-12-11] MEDS ORDERED: IBUPROFEN 400 MG TABLET (FP) PO PRN (18:24)
[2022-12-11] MEDS ORDERED: MAGNESIUM HYDROX 2400MG/30ML ORAL SUSPENSION 30 ML CUP PO PRN (18:24)
[2022-12-11] MEDS ORDERED: ACETAMINOPHEN 325 MG TABLET (FP) PO PRN (18:24)
[2022-12-11] MEDS ORDERED: IBUPROFEN 600 MG TABLET (FP) PO PRN (18:24)
[2022-12-11] MEDS ORDERED: guaiFENesin 600 MG TABLET.ER (FP) PO PRN (18:24)
[2022-12-11] MEDS ORDERED: BENZOCAINE/MENTHOL (CHLORASEPTIC ) LOZENGE MM PRN (18:24)
[2022-12-11] MEDS ORDERED: P-EPHED 60MG/TRIPROLIDI 2.5MG TABLET PO PRN (18:24)
[2022-12-11] MEDS ORDERED: LOPERAMIDE HCL 2 MG CAPSULE PO PRN (18:24)
[2022-12-11] MEDS ORDERED: MAG HYDROX/AL HYDROX/SIMETH 30 ML UNIT-DOSE CUP PO PRN (18:24)
[2022-12-11] MEDS ORDERED: COLLOIDAL OATMEAL 1 BAR EACH TP PRN (18:24)
[2022-12-11] MEDS ORDERED: BENZONATATE 200 MG CAPSULE PO PRN (18:24)
[2022-12-11] MEDS: THIAMINE HCL 100 MG TABLET (FP) PO SCH (21:14)
[2022-12-11] MEDS: MELATONIN 5 MG TABLETS PO SCH (21:16)
[2022-12-11] MEDS: ATORVASTATIN CA 20 MG TABLET (FP) PO SCH (21:16)
[2022-12-11] MEDS: MIRTAZAPINE 15 MG TABLET (FP) PO SCH (21:16)
[2022-12-11] MEDS: risperiDONE 2 MG TABLET PO SCH (21:16)
[2022-12-12] MEDS ORDERED: ESCITALOPRAM OXALATE 10 MG TABLET PO SCH (10:00)
[2022-12-12] MEDS: PRENATAL VITAMINS W/ FOLIC ACID TABLET (FP) PO SCH (10:07)
[2022-12-12] MEDS: CHOLECALCIFEROL (VIT D3) 1,000 UNIT (25 MCG) TABLET PO SCH (10:08)
[2022-12-12] MEDS: BICTEGRAV/EMTRICIT/TENOFOV (BIKTARVY) 50-200-25 MG TABLET PO SCH (10:08)
[2022-12-12] MEDS: ESCITALOPRAM OXALATE 10 MG TABLET PO SCH (10:08)
[2022-12-12] MEDS ORDERED: WITCH HAZEL 50% (TUCKS) 40 PAD/JAR PAD TP PRN (15:33)
[2022-12-12] MEDS: risperiDONE 2 MG TABLET PO SCH (21:38)
[2022-12-12] MEDS: MIRTAZAPINE 15 MG TABLET (FP) PO SCH (21:38)
[2022-12-12] MEDS: MELATONIN 5 MG TABLETS PO SCH (21:38)
[2022-12-12] MEDS: THIAMINE HCL 100 MG TABLET (FP) PO SCH (21:38)
[2022-12-12] MEDS: ATORVASTATIN CA 20 MG TABLET (FP) PO SCH (21:38)
[2022-12-12] MEDS: DOCUSATE SODIUM 100 MG CAPSULE (FP) PO SCH (21:40)
[2022-12-12] MEDS: SULFAMETHOXAZOLE/TRIMETHOPRIM 800MG/160MG D.S. TABLET PO SCH (21:40)
[2022-12-12 23:18] LABS: PH,URINE 7.5 (5.0-8.0); URINE APPEARANCE CLEAR; URINE BILIRUBIN NEGATIVE (NEGATIVE); URINE COLOR YELLOW; URINE GLUCOSE (UA) NEGATIVE (NEGATIVE); URINE KETONE NEGATIVE (NEGATIVE); URINE LEUK ESTERASE NEGATIVE (NEGATIVE); URINE NITRITE NEGATIVE (NEGATIVE); URINE PROTEIN NEGATIVE (NEGATIVE)
[2022-12-13] MEDS: DOCUSATE SODIUM 100 MG CAPSULE (FP) PO SCH ×2 (09:40→21:15)
[2022-12-13] MEDS: PRENATAL VITAMINS W/ FOLIC ACID TABLET (FP) PO SCH (09:40)
[2022-12-13] MEDS: ESCITALOPRAM OXALATE 10 MG TABLET PO SCH (09:40)
[2022-12-13] MEDS: SULFAMETHOXAZOLE/TRIMETHOPRIM 800MG/160MG D.S. TABLET PO SCH ×2 (09:40→21:16)
[2022-12-13] MEDS: BICTEGRAV/EMTRICIT/TENOFOV (BIKTARVY) 50-200-25 MG TABLET PO SCH (09:40)
[2022-12-13] MEDS: CHOLECALCIFEROL (VIT D3) 1,000 UNIT (25 MCG) TABLET PO SCH (09:41)
[2022-12-13] MEDS: THIAMINE HCL 100 MG TABLET (FP) PO SCH (21:15)
[2022-12-13] MEDS: MELATONIN 5 MG TABLETS PO SCH (21:16)
[2022-12-13] MEDS: risperiDONE 2 MG TABLET PO SCH (21:16)
[2022-12-13] MEDS: ATORVASTATIN CA 20 MG TABLET (FP) PO SCH (21:16)
[2022-12-13] MEDS: MIRTAZAPINE 15 MG TABLET (FP) PO SCH (21:16)
[2022-12-14] MEDS: BICTEGRAV/EMTRICIT/TENOFOV (BIKTARVY) 50-200-25 MG TABLET PO SCH (10:04)
[2022-12-14] MEDS: SULFAMETHOXAZOLE/TRIMETHOPRIM 800MG/160MG D.S. TABLET PO SCH ×2 (10:04→21:21)
[2022-12-14] MEDS: CHOLECALCIFEROL (VIT D3) 1,000 UNIT (25 MCG) TABLET PO SCH (10:04)
[2022-12-14] MEDS: DOCUSATE SODIUM 100 MG CAPSULE (FP) PO SCH ×2 (10:05→21:20)
[2022-12-14] MEDS: ESCITALOPRAM OXALATE 10 MG TABLET PO SCH (10:05)
[2022-12-14] MEDS: PRENATAL VITAMINS W/ FOLIC ACID TABLET (FP) PO SCH (10:05)
[2022-12-14] MEDS: risperiDONE 2 MG TABLET PO SCH (21:20)
[2022-12-14] MEDS: MELATONIN 5 MG TABLETS PO SCH (21:20)
[2022-12-14] MEDS: THIAMINE HCL 100 MG TABLET (FP) PO SCH (21:20)
[2022-12-14] MEDS: ATORVASTATIN CA 20 MG TABLET (FP) PO SCH (21:21)
[2022-12-14] MEDS: MIRTAZAPINE 15 MG TABLET (FP) PO SCH (21:21)
[2022-12-15] MEDS: PRENATAL VITAMINS W/ FOLIC ACID TABLET (FP) PO SCH (10:17)
[2022-12-15] MEDS: DOCUSATE SODIUM 100 MG CAPSULE (FP) PO SCH ×2 (10:18→21:22)
[2022-12-15] MEDS: BICTEGRAV/EMTRICIT/TENOFOV (BIKTARVY) 50-200-25 MG TABLET PO SCH (10:18)
[2022-12-15] MEDS: ESCITALOPRAM OXALATE 10 MG TABLET PO SCH (10:18)
[2022-12-15] MEDS: SULFAMETHOXAZOLE/TRIMETHOPRIM 800MG/160MG D.S. TABLET PO SCH ×2 (10:18→21:22)
[2022-12-15] MEDS: CHOLECALCIFEROL (VIT D3) 1,000 UNIT (25 MCG) TABLET PO SCH (10:19)
[2022-12-15] MEDS: MELATONIN 5 MG TABLETS PO SCH (21:21)
[2022-12-15] MEDS: risperiDONE 2 MG TABLET PO SCH (21:21)
[2022-12-15] MEDS: ATORVASTATIN CA 20 MG TABLET (FP) PO SCH (21:21)
[2022-12-15] MEDS: THIAMINE HCL 100 MG TABLET (FP) PO SCH (21:21)
[2022-12-15] MEDS: MIRTAZAPINE 15 MG TABLET (FP) PO SCH (21:22)
[2022-12-16] MEDS: SULFAMETHOXAZOLE/TRIMETHOPRIM 800MG/160MG D.S. TABLET PO SCH ×2 (09:41→21:32)
[2022-12-16] MEDS: CHOLECALCIFEROL (VIT D3) 1,000 UNIT (25 MCG) TABLET PO SCH (09:42)
[2022-12-16] MEDS: DOCUSATE SODIUM 100 MG CAPSULE (FP) PO SCH ×2 (09:42→21:32)
[2022-12-16] MEDS: BICTEGRAV/EMTRICIT/TENOFOV (BIKTARVY) 50-200-25 MG TABLET PO SCH (09:42)
[2022-12-16] MEDS: ESCITALOPRAM OXALATE 10 MG TABLET PO SCH (09:42)
[2022-12-16] MEDS: PRENATAL VITAMINS W/ FOLIC ACID TABLET (FP) PO SCH (09:42)
[2022-12-16] MEDS: AMMONIUM LACTATE 12% LOTION 225 GM BOTTLE TP PRN (09:45)
[2022-12-16] MEDS: POLYETHYLENE GLYCOL (HEALTHYLAX) 3350 17 GM PACKET PO PRN (09:45)
[2022-12-16] MEDS: CALAMINE 8% TOPICAL LOTION 177 ML BOTTLE TP PRN (09:46)
[2022-12-16] MEDS ORDERED: SODIUM PHOSPHATE/NA BIPHOS 133 ML ENEMA RC ONE (14:44)
[2022-12-16] MEDS ORDERED: CLOTRIMAZOLE 10 MG TROCHE PO SCH (18:00)
[2022-12-16] MEDS: THIAMINE HCL 100 MG TABLET (FP) PO SCH (21:32)
[2022-12-16] MEDS: ATORVASTATIN CA 20 MG TABLET (FP) PO SCH (21:32)
[2022-12-16] MEDS: MIRTAZAPINE 15 MG TABLET (FP) PO SCH (21:32)
[2022-12-16] MEDS: SENNOSIDES 8.6MG TABLET (FP) PO PRN (21:32)
[2022-12-16] MEDS: risperiDONE 2 MG TABLET PO SCH (21:32)
[2022-12-16] MEDS: MELATONIN 5 MG TABLETS PO SCH (21:32)
[2022-12-17] MEDS: DOCUSATE SODIUM 100 MG CAPSULE (FP) PO SCH ×2 (09:36→21:37)
[2022-12-17] MEDS: SULFAMETHOXAZOLE/TRIMETHOPRIM 800MG/160MG D.S. TABLET PO SCH ×2 (09:36→21:34)
[2022-12-17] MEDS: CHOLECALCIFEROL (VIT D3) 1,000 UNIT (25 MCG) TABLET PO SCH (09:36)
[2022-12-17] MEDS: PRENATAL VITAMINS W/ FOLIC ACID TABLET (FP) PO SCH (09:36)
[2022-12-17] MEDS: ESCITALOPRAM OXALATE 10 MG TABLET PO SCH (09:36)
[2022-12-17] MEDS: BICTEGRAV/EMTRICIT/TENOFOV (BIKTARVY) 50-200-25 MG TABLET PO SCH (09:36)
[2022-12-17] MEDS: POLYETHYLENE GLYCOL (HEALTHYLAX) 3350 17 GM PACKET PO PRN (09:39)
[2022-12-17] MEDS ORDERED: SODIUM PHOSPHATE/NA BIPHOS 133 ML ENEMA RC ONE (18:26)
[2022-12-17] MEDS: MELATONIN 5 MG TABLETS PO SCH (21:34)
[2022-12-17] MEDS: MIRTAZAPINE 15 MG TABLET (FP) PO SCH (21:34)
[2022-12-17] MEDS: THIAMINE HCL 100 MG TABLET (FP) PO SCH (21:34)
[2022-12-17] MEDS: ATORVASTATIN CA 20 MG TABLET (FP) PO SCH (21:34)
[2022-12-17] MEDS: risperiDONE 2 MG TABLET PO SCH (21:34)
[2022-12-17] MEDS: SENNOSIDES 8.6MG TABLET (FP) PO PRN (21:34)
[2022-12-17] MEDS: HYDROCORTISONE 2.5% TOPICAL CREAM 30 GM TUBE RC PRN (22:29)
[2022-12-18] MEDS: CHOLECALCIFEROL (VIT D3) 1,000 UNIT (25 MCG) TABLET PO SCH (10:15)
[2022-12-18] MEDS: HYDROCORTISONE 2.5% TOPICAL CREAM 30 GM TUBE RC PRN ×2 (10:16→21:26)
[2022-12-18] MEDS: DOCUSATE SODIUM 100 MG CAPSULE (FP) PO SCH ×2 (10:16→21:25)
[2022-12-18] MEDS: BICTEGRAV/EMTRICIT/TENOFOV (BIKTARVY) 50-200-25 MG TABLET PO SCH (10:16)
[2022-12-18] MEDS: PRENATAL VITAMINS W/ FOLIC ACID TABLET (FP) PO SCH (10:16)
[2022-12-18] MEDS: ESCITALOPRAM OXALATE 10 MG TABLET PO SCH (10:16)
[2022-12-18] MEDS: SULFAMETHOXAZOLE/TRIMETHOPRIM 800MG/160MG D.S. TABLET PO SCH ×2 (10:40→21:25)
[2022-12-18] MEDS ORDERED: SODIUM PHOSPHATE/NA BIPHOS 133 ML ENEMA RC ONE (11:29)
[2022-12-18] MEDS ORDERED: SODIUM PHOSPHATE/NA BIPHOS 133 ML ENEMA PR ONE (11:29)
[2022-12-18] MEDS ORDERED: SODIUM PHOSPHATE/NA BIPHOS 133 ML ENEMA RC PRN (15:58)
[2022-12-18] MEDS: risperiDONE 2 MG TABLET PO SCH (21:24)
[2022-12-18] MEDS: ATORVASTATIN CA 20 MG TABLET (FP) PO SCH (21:24)
[2022-12-18] MEDS: MELATONIN 5 MG TABLETS PO SCH (21:24)
[2022-12-18] MEDS: MIRTAZAPINE 15 MG TABLET (FP) PO SCH (21:24)
[2022-12-18] MEDS: THIAMINE HCL 100 MG TABLET (FP) PO SCH (21:24)
[2022-12-18] MEDS: SENNOSIDES 8.6MG TABLET (FP) PO PRN (21:25)
[2022-12-18] MEDS: LACTULOSE 20 GM/30 ML UDC (FOR ORAL USE ONLY) PO SCH (21:25)
[2022-12-19] MEDS: CHOLECALCIFEROL (VIT D3) 1,000 UNIT (25 MCG) TABLET PO SCH (09:28)
[2022-12-19] MEDS: LACTULOSE 20 GM/30 ML UDC (FOR ORAL USE ONLY) PO SCH ×2 (09:28→21:09)
[2022-12-19] MEDS: PRENATAL VITAMINS W/ FOLIC ACID TABLET (FP) PO SCH (09:29)
[2022-12-19] MEDS: DOCUSATE SODIUM 100 MG CAPSULE (FP) PO SCH ×2 (09:29→21:31)
[2022-12-19] MEDS: SULFAMETHOXAZOLE/TRIMETHOPRIM 800MG/160MG D.S. TABLET PO SCH ×2 (09:29→21:09)
[2022-12-19] MEDS: ESCITALOPRAM OXALATE 10 MG TABLET PO SCH (09:29)
[2022-12-19] MEDS: BICTEGRAV/EMTRICIT/TENOFOV (BIKTARVY) 50-200-25 MG TABLET PO SCH (09:29)
[2022-12-19] MEDS: HYDROCORTISONE 2.5% TOPICAL CREAM 30 GM TUBE RC PRN (12:32)
[2022-12-19] MEDS: risperiDONE 2 MG TABLET PO SCH (21:09)
[2022-12-19] MEDS: THIAMINE HCL 100 MG TABLET (FP) PO SCH (21:09)
[2022-12-19] MEDS: MIRTAZAPINE 15 MG TABLET (FP) PO SCH (21:09)
[2022-12-19] MEDS: ATORVASTATIN CA 20 MG TABLET (FP) PO SCH (21:09)
[2022-12-19] MEDS: MELATONIN 5 MG TABLETS PO SCH (21:09)
[2022-12-19] MEDS: SENNOSIDES 8.6MG TABLET (FP) PO PRN (21:09)
[2022-12-20] MEDS: ESCITALOPRAM OXALATE 10 MG TABLET PO SCH (09:43)
[2022-12-20] MEDS: SULFAMETHOXAZOLE/TRIMETHOPRIM 800MG/160MG D.S. TABLET PO SCH ×2 (09:43→21:02)
[2022-12-20] MEDS: BICTEGRAV/EMTRICIT/TENOFOV (BIKTARVY) 50-200-25 MG TABLET PO SCH (09:43)
[2022-12-20] MEDS: LACTULOSE 20 GM/30 ML UDC (FOR ORAL USE ONLY) PO SCH ×2 (09:43→21:03)
[2022-12-20] MEDS: DOCUSATE SODIUM 100 MG CAPSULE (FP) PO SCH ×2 (09:43→21:02)
[2022-12-20] MEDS: CHOLECALCIFEROL (VIT D3) 1,000 UNIT (25 MCG) TABLET PO SCH (09:43)
[2022-12-20] MEDS: PRENATAL VITAMINS W/ FOLIC ACID TABLET (FP) PO SCH (09:44)
[2022-12-20] MEDS: MIRTAZAPINE 15 MG TABLET (FP) PO SCH (21:02)
[2022-12-20] MEDS: ATORVASTATIN CA 20 MG TABLET (FP) PO SCH (21:02)
[2022-12-20] MEDS: SENNOSIDES 8.6MG TABLET (FP) PO PRN (21:02)
[2022-12-20] MEDS: THIAMINE HCL 100 MG TABLET (FP) PO SCH (21:02)
[2022-12-20] MEDS: MELATONIN 5 MG TABLETS PO SCH (21:02)
[2022-12-20] MEDS: risperiDONE 2 MG TABLET PO SCH (21:02)
[2022-12-21] MEDS: BICTEGRAV/EMTRICIT/TENOFOV (BIKTARVY) 50-200-25 MG TABLET PO SCH (10:06)
[2022-12-21] MEDS: CHOLECALCIFEROL (VIT D3) 1,000 UNIT (25 MCG) TABLET PO SCH (10:06)
[2022-12-21] MEDS: SULFAMETHOXAZOLE/TRIMETHOPRIM 800MG/160MG D.S. TABLET PO SCH ×2 (10:07→21:22)
[2022-12-21] MEDS: ESCITALOPRAM OXALATE 10 MG TABLET PO SCH (10:07)
[2022-12-21] MEDS: LACTULOSE 20 GM/30 ML UDC (FOR ORAL USE ONLY) PO SCH ×2 (10:08→22:47)
[2022-12-21] MEDS: DOCUSATE SODIUM 100 MG CAPSULE (FP) PO SCH ×2 (10:08→21:24)
[2022-12-21] MEDS: PRENATAL VITAMINS W/ FOLIC ACID TABLET (FP) PO SCH (10:08)
[2022-12-21] MEDS: MIRTAZAPINE 15 MG TABLET (FP) PO SCH (21:24)
[2022-12-21] MEDS: MELATONIN 5 MG TABLETS PO SCH (21:24)
[2022-12-21] MEDS: risperiDONE 2 MG TABLET PO SCH (21:25)
[2022-12-21] MEDS: THIAMINE HCL 100 MG TABLET (FP) PO SCH (21:26)
[2022-12-21] MEDS: ATORVASTATIN CA 20 MG TABLET (FP) PO SCH (21:26)
[2022-12-22] MEDS: PRENATAL VITAMINS W/ FOLIC ACID TABLET (FP) PO SCH (09:43)
[2022-12-22] MEDS: DOCUSATE SODIUM 100 MG CAPSULE (FP) PO SCH ×2 (09:44→21:08)
[2022-12-22] MEDS: LACTULOSE 20 GM/30 ML UDC (FOR ORAL USE ONLY) PO SCH ×2 (09:44→21:08)
[2022-12-22] MEDS: CHOLECALCIFEROL (VIT D3) 1,000 UNIT (25 MCG) TABLET PO SCH (09:44)
[2022-12-22] MEDS: BICTEGRAV/EMTRICIT/TENOFOV (BIKTARVY) 50-200-25 MG TABLET PO SCH (09:44)
[2022-12-22] MEDS: ESCITALOPRAM OXALATE 10 MG TABLET PO SCH (09:44)
[2022-12-22] MEDS: SULFAMETHOXAZOLE/TRIMETHOPRIM 800MG/160MG D.S. TABLET PO SCH ×2 (09:44→21:08)
[2022-12-22] MEDS: THIAMINE HCL 100 MG TABLET (FP) PO SCH (21:08)
[2022-12-22] MEDS: MELATONIN 5 MG TABLETS PO SCH (21:08)
[2022-12-22] MEDS: SENNOSIDES 8.6MG TABLET (FP) PO PRN (21:08)
[2022-12-22] MEDS: MIRTAZAPINE 15 MG TABLET (FP) PO SCH (21:08)
[2022-12-22] MEDS: ATORVASTATIN CA 20 MG TABLET (FP) PO SCH (21:08)
[2022-12-22] MEDS: risperiDONE 2 MG TABLET PO SCH (21:08)
[2022-12-23] MEDS: BICTEGRAV/EMTRICIT/TENOFOV (BIKTARVY) 50-200-25 MG TABLET PO SCH (10:17)
[2022-12-23] MEDS: ESCITALOPRAM OXALATE 10 MG TABLET PO SCH (10:17)
[2022-12-23] MEDS: CHOLECALCIFEROL (VIT D3) 1,000 UNIT (25 MCG) TABLET PO SCH (10:17)
[2022-12-23] MEDS: DOCUSATE SODIUM 100 MG CAPSULE (FP) PO SCH ×2 (10:17→21:01)
[2022-12-23] MEDS: SULFAMETHOXAZOLE/TRIMETHOPRIM 800MG/160MG D.S. TABLET PO SCH ×2 (10:17→21:01)
[2022-12-23] MEDS: PRENATAL VITAMINS W/ FOLIC ACID TABLET (FP) PO SCH (10:18)
[2022-12-23] MEDS: LACTULOSE 20 GM/30 ML UDC (FOR ORAL USE ONLY) PO SCH ×3 (10:18→21:01)
[2022-12-23] MEDS ORDERED: hydrOXYzine PAMOATE 25 MG CAPSULE (FP) PO PRN (14:37)
[2022-12-23] MEDS: MIRTAZAPINE 15 MG TABLET (FP) PO SCH (21:01)
[2022-12-23] MEDS: ATORVASTATIN CA 20 MG TABLET (FP) PO SCH (21:01)
[2022-12-23] MEDS: SENNOSIDES 8.6MG TABLET (FP) PO PRN (21:01)
[2022-12-23] MEDS: THIAMINE HCL 100 MG TABLET (FP) PO SCH (21:01)
[2022-12-23] MEDS: risperiDONE 2 MG TABLET PO SCH (21:01)
[2022-12-23] MEDS: MELATONIN 5 MG TABLETS PO SCH (21:02)
[2022-12-24] MEDS: LACTULOSE 20 GM/30 ML UDC (FOR ORAL USE ONLY) PO SCH ×3 (07:23→21:05)
[2022-12-24] MEDS: SULFAMETHOXAZOLE/TRIMETHOPRIM 800MG/160MG D.S. TABLET PO SCH ×2 (09:39→21:05)
[2022-12-24] MEDS: BICTEGRAV/EMTRICIT/TENOFOV (BIKTARVY) 50-200-25 MG TABLET PO SCH (09:39)
[2022-12-24] MEDS: PRENATAL VITAMINS W/ FOLIC ACID TABLET (FP) PO SCH (09:39)
[2022-12-24] MEDS: ESCITALOPRAM OXALATE 10 MG TABLET PO SCH (09:40)
[2022-12-24] MEDS: CHOLECALCIFEROL (VIT D3) 1,000 UNIT (25 MCG) TABLET PO SCH (09:40)
[2022-12-24] MEDS: DOCUSATE SODIUM 100 MG CAPSULE (FP) PO SCH ×2 (09:40→21:05)
[2022-12-24] MEDS: MELATONIN 5 MG TABLETS PO SCH (21:04)
[2022-12-24] MEDS: THIAMINE HCL 100 MG TABLET (FP) PO SCH (21:04)
[2022-12-24] MEDS: MIRTAZAPINE 15 MG TABLET (FP) PO SCH (21:05)
[2022-12-24] MEDS: SENNOSIDES 8.6MG TABLET (FP) PO PRN (21:05)
[2022-12-24] MEDS: ATORVASTATIN CA 20 MG TABLET (FP) PO SCH (21:05)
[2022-12-24] MEDS: risperiDONE 2 MG TABLET PO SCH (21:05)
[2022-12-25] MEDS: LACTULOSE 20 GM/30 ML UDC (FOR ORAL USE ONLY) PO SCH ×3 (06:26→21:04)
[2022-12-25] MEDS: BICTEGRAV/EMTRICIT/TENOFOV (BIKTARVY) 50-200-25 MG TABLET PO SCH (10:36)
[2022-12-25] MEDS: SULFAMETHOXAZOLE/TRIMETHOPRIM 800MG/160MG D.S. TABLET PO SCH ×2 (10:36→21:03)
[2022-12-25] MEDS: PRENATAL VITAMINS W/ FOLIC ACID TABLET (FP) PO SCH (10:36)
[2022-12-25] MEDS: DOCUSATE SODIUM 100 MG CAPSULE (FP) PO SCH ×2 (10:36→21:03)
[2022-12-25] MEDS: ESCITALOPRAM OXALATE 10 MG TABLET PO SCH (10:36)
[2022-12-25] MEDS: CHOLECALCIFEROL (VIT D3) 1,000 UNIT (25 MCG) TABLET PO SCH (10:36)
[2022-12-25] MEDS: THIAMINE HCL 100 MG TABLET (FP) PO SCH (21:03)
[2022-12-25] MEDS: risperiDONE 2 MG TABLET PO SCH (21:03)
[2022-12-25] MEDS: ATORVASTATIN CA 20 MG TABLET (FP) PO SCH (21:03)
[2022-12-25] MEDS: MIRTAZAPINE 15 MG TABLET (FP) PO SCH (21:03)
[2022-12-25] MEDS: SENNOSIDES 8.6MG TABLET (FP) PO PRN (21:03)
[2022-12-25] MEDS: MELATONIN 5 MG TABLETS PO SCH (21:03)
[2022-12-26] MEDS: LACTULOSE 20 GM/30 ML UDC (FOR ORAL USE ONLY) PO SCH ×3 (06:31→21:07)
[2022-12-26] MEDS: PRENATAL VITAMINS W/ FOLIC ACID TABLET (FP) PO SCH (09:32)
[2022-12-26] MEDS: CHOLECALCIFEROL (VIT D3) 1,000 UNIT (25 MCG) TABLET PO SCH (09:33)
[2022-12-26] MEDS: ESCITALOPRAM OXALATE 10 MG TABLET PO SCH (09:33)
[2022-12-26] MEDS: SULFAMETHOXAZOLE/TRIMETHOPRIM 800MG/160MG D.S. TABLET PO SCH ×2 (09:33→21:08)
[2022-12-26] MEDS: DOCUSATE SODIUM 100 MG CAPSULE (FP) PO SCH ×2 (09:33→21:08)
[2022-12-26] MEDS: BICTEGRAV/EMTRICIT/TENOFOV (BIKTARVY) 50-200-25 MG TABLET PO SCH (09:33)
[2022-12-26] MEDS: THIAMINE HCL 100 MG TABLET (FP) PO SCH (21:07)
[2022-12-26] MEDS: SENNOSIDES 8.6MG TABLET (FP) PO PRN (21:07)
[2022-12-26] MEDS: ATORVASTATIN CA 20 MG TABLET (FP) PO SCH (21:08)
[2022-12-26] MEDS: MIRTAZAPINE 15 MG TABLET (FP) PO SCH (21:08)
[2022-12-26] MEDS: MELATONIN 5 MG TABLETS PO SCH (21:08)
[2022-12-26] MEDS: risperiDONE 2 MG TABLET PO SCH (21:36)
[2022-12-26] MEDS: HYDROCORTISONE 2.5% TOPICAL CREAM 30 GM TUBE RC PRN (21:38)
[2022-12-27] MEDS: LACTULOSE 20 GM/30 ML UDC (FOR ORAL USE ONLY) PO SCH ×3 (06:43→21:17)
[2022-12-27] MEDS: BICTEGRAV/EMTRICIT/TENOFOV (BIKTARVY) 50-200-25 MG TABLET PO SCH (09:20)
[2022-12-27] MEDS: DOCUSATE SODIUM 100 MG CAPSULE (FP) PO SCH ×2 (09:20→21:17)
[2022-12-27] MEDS: PRENATAL VITAMINS W/ FOLIC ACID TABLET (FP) PO SCH (09:21)
[2022-12-27] MEDS: CHOLECALCIFEROL (VIT D3) 1,000 UNIT (25 MCG) TABLET PO SCH (09:21)
[2022-12-27] MEDS: ESCITALOPRAM OXALATE 10 MG TABLET PO SCH (09:21)
[2022-12-27] MEDS: MELATONIN 5 MG TABLETS PO SCH (21:17)
[2022-12-27] MEDS: THIAMINE HCL 100 MG TABLET (FP) PO SCH (21:17)
[2022-12-27] MEDS: risperiDONE 2 MG TABLET PO SCH (21:17)
[2022-12-27] MEDS: ATORVASTATIN CA 20 MG TABLET (FP) PO SCH (21:17)
[2022-12-27] MEDS: MIRTAZAPINE 15 MG TABLET (FP) PO SCH (21:18)
[2022-12-28] MEDS: LACTULOSE 20 GM/30 ML UDC (FOR ORAL USE ONLY) PO SCH ×3 (07:00→21:13)
[2022-12-28] MEDS: CHOLECALCIFEROL (VIT D3) 1,000 UNIT (25 MCG) TABLET PO SCH (09:37)
[2022-12-28] MEDS: DOCUSATE SODIUM 100 MG CAPSULE (FP) PO SCH ×2 (09:37→21:13)
[2022-12-28] MEDS: ESCITALOPRAM OXALATE 10 MG TABLET PO SCH (09:37)
[2022-12-28] MEDS: BICTEGRAV/EMTRICIT/TENOFOV (BIKTARVY) 50-200-25 MG TABLET PO SCH (09:37)
[2022-12-28] MEDS: PRENATAL VITAMINS W/ FOLIC ACID TABLET (FP) PO SCH (09:38)
[2022-12-28] MEDS: risperiDONE 2 MG TABLET PO SCH (21:13)
[2022-12-28] MEDS: MIRTAZAPINE 15 MG TABLET (FP) PO SCH (21:13)
[2022-12-28] MEDS: MELATONIN 5 MG TABLETS PO SCH (21:13)
[2022-12-28] MEDS: ATORVASTATIN CA 20 MG TABLET (FP) PO SCH (21:13)
[2022-12-28] MEDS: THIAMINE HCL 100 MG TABLET (FP) PO SCH (21:13)
[2022-12-29] MEDS: LACTULOSE 20 GM/30 ML UDC (FOR ORAL USE ONLY) PO SCH (07:54)
[2022-12-29] MEDS: BICTEGRAV/EMTRICIT/TENOFOV (BIKTARVY) 50-200-25 MG TABLET PO SCH (10:03)
[2022-12-29] MEDS: DOCUSATE SODIUM 100 MG CAPSULE (FP) PO SCH ×2 (10:04→21:12)
[2022-12-29] MEDS: CHOLECALCIFEROL (VIT D3) 1,000 UNIT (25 MCG) TABLET PO SCH (10:04)
[2022-12-29] MEDS: ESCITALOPRAM OXALATE 10 MG TABLET PO SCH (10:04)
[2022-12-29] MEDS: PRENATAL VITAMINS W/ FOLIC ACID TABLET (FP) PO SCH (10:04)
[2022-12-29] MEDS: LACTULOSE 20 GM/30 ML UDC (FOR ORAL USE ONLY) PO PRN ×2 (13:11→21:12)
[2022-12-29] MEDS: MELATONIN 5 MG TABLETS PO SCH (21:12)
[2022-12-29] MEDS: THIAMINE HCL 100 MG TABLET (FP) PO SCH (21:12)
[2022-12-29] MEDS: risperiDONE 2 MG TABLET PO SCH (21:12)
[2022-12-29] MEDS: MIRTAZAPINE 15 MG TABLET (FP) PO SCH (21:12)
[2022-12-29] MEDS: ATORVASTATIN CA 20 MG TABLET (FP) PO SCH (21:12)
[2022-12-29] MEDS: SENNOSIDES 8.6MG TABLET (FP) PO PRN (21:13)
[2022-12-30] MEDS: LACTULOSE 20 GM/30 ML UDC (FOR ORAL USE ONLY) PO PRN (06:09)
[2022-12-30] MEDS: PRENATAL VITAMINS W/ FOLIC ACID TABLET (FP) PO SCH (09:47)
[2022-12-30] MEDS: CHOLECALCIFEROL (VIT D3) 1,000 UNIT (25 MCG) TABLET PO SCH (09:47)
[2022-12-30] MEDS: BICTEGRAV/EMTRICIT/TENOFOV (BIKTARVY) 50-200-25 MG TABLET PO SCH (09:47)
[2022-12-30] MEDS: DOCUSATE SODIUM 100 MG CAPSULE (FP) PO SCH ×2 (09:47→21:03)
[2022-12-30] MEDS: ESCITALOPRAM OXALATE 10 MG TABLET PO SCH (09:47)
[2022-12-30] MEDS: MIRTAZAPINE 15 MG TABLET (FP) PO SCH (21:02)
[2022-12-30] MEDS: risperiDONE 2 MG TABLET PO SCH (21:02)
[2022-12-30] MEDS: ATORVASTATIN CA 20 MG TABLET (FP) PO SCH (21:03)
[2022-12-30] MEDS: THIAMINE HCL 100 MG TABLET (FP) PO SCH (21:03)
[2022-12-30] MEDS: MELATONIN 5 MG TABLETS PO SCH (21:04)
[2022-12-31] MEDS: DOCUSATE SODIUM 100 MG CAPSULE (FP) PO SCH ×2 (09:40→21:19)
[2022-12-31] MEDS: PRENATAL VITAMINS W/ FOLIC ACID TABLET (FP) PO SCH (09:40)
[2022-12-31] MEDS: ESCITALOPRAM OXALATE 10 MG TABLET PO SCH (09:41)
[2022-12-31] MEDS: CHOLECALCIFEROL (VIT D3) 1,000 UNIT (25 MCG) TABLET PO SCH (09:41)
[2022-12-31] MEDS: BICTEGRAV/EMTRICIT/TENOFOV (BIKTARVY) 50-200-25 MG TABLET PO SCH (09:41)
[2022-12-31] MEDS: THIAMINE HCL 100 MG TABLET (FP) PO SCH (21:18)
[2022-12-31] MEDS: MELATONIN 5 MG TABLETS PO SCH (21:18)
[2022-12-31] MEDS: MIRTAZAPINE 15 MG TABLET (FP) PO SCH (21:19)
[2022-12-31] MEDS: risperiDONE 2 MG TABLET PO SCH (21:19)
[2022-12-31] MEDS: ATORVASTATIN CA 20 MG TABLET (FP) PO SCH (21:19)
[2022-12-31] MEDS: SENNOSIDES 8.6MG TABLET (FP) PO PRN (21:20)
[2023-01-01] MEDS: DOCUSATE SODIUM 100 MG CAPSULE (FP) PO SCH ×2 (10:04→21:16)
[2023-01-01] MEDS: PRENATAL VITAMINS W/ FOLIC ACID TABLET (FP) PO SCH (10:04)
[2023-01-01] MEDS: BICTEGRAV/EMTRICIT/TENOFOV (BIKTARVY) 50-200-25 MG TABLET PO SCH (10:04)
[2023-01-01] MEDS: ESCITALOPRAM OXALATE 10 MG TABLET PO SCH (10:04)
[2023-01-01] MEDS: CHOLECALCIFEROL (VIT D3) 1,000 UNIT (25 MCG) TABLET PO SCH (10:05)
[2023-01-01] MEDS: THIAMINE HCL 100 MG TABLET (FP) PO SCH (21:16)
[2023-01-01] MEDS: risperiDONE 2 MG TABLET PO SCH (21:16)
[2023-01-01] MEDS: MELATONIN 5 MG TABLETS PO SCH (21:16)
[2023-01-01] MEDS: MIRTAZAPINE 15 MG TABLET (FP) PO SCH (21:17)
[2023-01-01] MEDS: SENNOSIDES 8.6MG TABLET (FP) PO PRN (21:17)
[2023-01-01] MEDS: ATORVASTATIN CA 20 MG TABLET (FP) PO SCH (21:17)
[2023-01-02] MEDS: BICTEGRAV/EMTRICIT/TENOFOV (BIKTARVY) 50-200-25 MG TABLET PO SCH (09:34)
[2023-01-02] MEDS: HYDROCORTISONE 2.5% TOPICAL CREAM 30 GM TUBE RC PRN (09:34)
[2023-01-02] MEDS: CHOLECALCIFEROL (VIT D3) 1,000 UNIT (25 MCG) TABLET PO SCH (09:34)
[2023-01-02] MEDS: ESCITALOPRAM OXALATE 10 MG TABLET PO SCH (09:34)
[2023-01-02] MEDS: PRENATAL VITAMINS W/ FOLIC ACID TABLET (FP) PO SCH (09:34)
[2023-01-02] MEDS: DOCUSATE SODIUM 100 MG CAPSULE (FP) PO SCH ×2 (09:34→21:03)
[2023-01-02] MEDS: AMMONIUM LACTATE 12% LOTION 225 GM BOTTLE TP PRN (09:37)
[2023-01-02] MEDS: CALAMINE 8% TOPICAL LOTION 177 ML BOTTLE TP PRN (09:37)
[2023-01-02] MEDS: MELATONIN 5 MG TABLETS PO SCH (21:02)
[2023-01-02] MEDS: THIAMINE HCL 100 MG TABLET (FP) PO SCH (21:02)
[2023-01-02] MEDS: ATORVASTATIN CA 20 MG TABLET (FP) PO SCH (21:03)
[2023-01-02] MEDS: risperiDONE 2 MG TABLET PO SCH (21:03)
[2023-01-02] MEDS: MIRTAZAPINE 15 MG TABLET (FP) PO SCH (21:03)
[2023-01-02] MEDS: SENNOSIDES 8.6MG TABLET (FP) PO PRN (21:04)
[2023-01-03] MEDS: PRENATAL VITAMINS W/ FOLIC ACID TABLET (FP) PO SCH (09:39)
[2023-01-03] MEDS: CHOLECALCIFEROL (VIT D3) 1,000 UNIT (25 MCG) TABLET PO SCH (09:39)
[2023-01-03] MEDS: BICTEGRAV/EMTRICIT/TENOFOV (BIKTARVY) 50-200-25 MG TABLET PO SCH (09:39)
[2023-01-03] MEDS: ESCITALOPRAM OXALATE 10 MG TABLET PO SCH (09:39)
[2023-01-03] MEDS: DOCUSATE SODIUM 100 MG CAPSULE (FP) PO SCH ×2 (09:39→21:14)
[2023-01-03] MEDS: risperiDONE 2 MG TABLET PO SCH (21:14)
[2023-01-03] MEDS: MIRTAZAPINE 15 MG TABLET (FP) PO SCH (21:14)
[2023-01-03] MEDS: ATORVASTATIN CA 20 MG TABLET (FP) PO SCH (21:14)
[2023-01-03] MEDS: MELATONIN 5 MG TABLETS PO SCH (21:14)
[2023-01-03] MEDS: THIAMINE HCL 100 MG TABLET (FP) PO SCH (21:14)
[2023-01-04] MEDS: BICTEGRAV/EMTRICIT/TENOFOV (BIKTARVY) 50-200-25 MG TABLET PO SCH (09:26)
[2023-01-04] MEDS: PRENATAL VITAMINS W/ FOLIC ACID TABLET (FP) PO SCH (09:26)
[2023-01-04] MEDS: CHOLECALCIFEROL (VIT D3) 1,000 UNIT (25 MCG) TABLET PO SCH (09:26)
[2023-01-04] MEDS: DOCUSATE SODIUM 100 MG CAPSULE (FP) PO SCH ×2 (09:26→21:13)
[2023-01-04] MEDS: ESCITALOPRAM OXALATE 10 MG TABLET PO SCH (09:26)
[2023-01-04] MEDS: MIRTAZAPINE 15 MG TABLET (FP) PO SCH (21:13)
[2023-01-04] MEDS: MELATONIN 5 MG TABLETS PO SCH (21:15)
[2023-01-04] MEDS: risperiDONE 2 MG TABLET PO SCH (21:15)
[2023-01-04] MEDS: ATORVASTATIN CA 20 MG TABLET (FP) PO SCH (21:15)
[2023-01-04] MEDS: THIAMINE HCL 100 MG TABLET (FP) PO SCH (21:15)
[2023-01-05 07:15] VITALS: BP 122/79; PULSE 88; RESP 18; TEMP 98
[2023-01-05] MEDS: BICTEGRAV/EMTRICIT/TENOFOV (BIKTARVY) 50-200-25 MG TABLET PO SCH (09:44)
[2023-01-05] MEDS: ESCITALOPRAM OXALATE 10 MG TABLET PO SCH (09:44)
[2023-01-05] MEDS: CHOLECALCIFEROL (VIT D3) 1,000 UNIT (25 MCG) TABLET PO SCH (09:44)
[2023-01-05] MEDS: PRENATAL VITAMINS W/ FOLIC ACID TABLET (FP) PO SCH (09:44)
[2023-01-05] MEDS: DOCUSATE SODIUM 100 MG CAPSULE (FP) PO SCH (09:44)
== END 2023-01-05 12:30 | disposition home or self-care (01) | DRG 772 ==
LOC: YASAS 18:04 → Y3E 18:05
PROVIDERS: ADMIT Allergy & Immunology; ATTEND Psychiatry & Neurology Pain Medicine
PROC: HZ42ZZZ Group Counseling for Substance Abuse Treatment, Cognitive-Behavioral (ICD-10-PCS; principal; 2022-12-11)
DX: F10.20 Alcohol dependence, uncomplicated (principal); F15.20 Other stimulant dependence, uncomplicated; F31.9 Bipolar disorder, unspecified; F41.9 Anxiety disorder, unspecified; Z21 Asymptomatic human immunodeficiency virus [HIV] infection status; E78.5 Hyperlipidemia, unspecified; K59.00 Constipation, unspecified; K64.4 Residual hemorrhoidal skin tags; R79.89 Other specified abnormal findings of blood chemistry; Z86.19 Personal history of other infectious and parasitic diseases
CPT/HCPCS: 81003; 87086

== ENCOUNTER 2023-03-17 14:13 | Inpatient (IN) | payer OTHER ==
[2023-03-17 16:54] VITALS: BMI 24.3
[2023-03-17] MEDS ORDERED: ONDANSETRON *ODT* 4 MG TABLET SL PRN (19:45)
[2023-03-17] MEDS ORDERED: METHOCARBAMOL 500 MG TABLET PO PRN (19:45)
[2023-03-17] MEDS ORDERED: hydrOXYzine PAMOATE 25 MG CAPSULE (FP) PO PRN (19:45)
[2023-03-17] MEDS ORDERED: POLYETHYLENE GLYCOL (HEALTHYLAX) 3350 17 GM PACKET PO PRN (19:45)
[2023-03-17] MEDS ORDERED: MAG HYDROX/AL HYDROX/SIMETH 30 ML UNIT-DOSE CUP PO PRN (19:45)
[2023-03-17] MEDS ORDERED: MAGNESIUM HYDROX 2400MG/30ML ORAL SUSPENSION 30 ML CUP PO PRN (19:45)
[2023-03-17] MEDS ORDERED: NALOXONE HCL 0.4 MG/ML VIAL IM PRN (19:45)
[2023-03-17] MEDS ORDERED: NALOXONE HCL (KLOXXADO) 8 MG SPRAY NS PRN (19:45)
[2023-03-17] MEDS ORDERED: DICYCLOMINE HCL 10 MG CAPSULE PO PRN (19:45)
[2023-03-17] MEDS ORDERED: BENZOCAINE/MENTHOL (CHLORASEPTIC ) LOZENGE MM PRN (19:45)
[2023-03-17] MEDS ORDERED: chlordiazePOXIDE HCL 25 MG CAPSULE PO PRN (19:45)
[2023-03-17] MEDS ORDERED: BISMUTH SUBSALICYLATE 524 MG/30 ML PO PRN (19:45)
[2023-03-17] MEDS ORDERED: IBUPROFEN 400 MG TABLET (FP) PO PRN (19:45)
[2023-03-17] MEDS ORDERED: LOPERAMIDE HCL 2 MG CAPSULE PO PRN (19:45)
[2023-03-17] MEDS ORDERED: guaiFENesin 600 MG TABLET.ER (FP) PO PRN (19:45)
[2023-03-17] MEDS ORDERED: BENZONATATE 200 MG CAPSULE PO PRN (19:45)
[2023-03-17] MEDS ORDERED: IBUPROFEN 600 MG TABLET (FP) PO PRN (19:45)
[2023-03-17] MEDS ORDERED: ACETAMINOPHEN 325 MG TABLET (FP) PO PRN (19:45)
[2023-03-17] MEDS ORDERED: MELATONIN 5 MG TABLETS PO SCH (22:00)
[2023-03-17] MEDS: chlordiazePOXIDE HCL 25 MG CAPSULE PO SCH (22:08)
[2023-03-17] MEDS: THIAMINE HCL 100 MG TABLET (FP) PO SCH (22:08)
[2023-03-18] MEDS: chlordiazePOXIDE HCL 25 MG CAPSULE PO SCH ×4 (05:59→22:15)
[2023-03-18] MEDS: PRENATAL VITAMINS W/ FOLIC ACID TABLET (FP) PO SCH (10:28)
[2023-03-18] MEDS: BICTEGRAV/EMTRICIT/TENOFOV (BIKTARVY) 50-200-25 MG TABLET PO SCH (10:31)
[2023-03-18 11:36] LABS: HEMATOCRIT 39.3 % (35.4-49); HEMOGLOBIN 12.6 GM/dL (11.7-16.9); MCH 27.2 pg (25.7-33.7); MEAN CELL VOLUME 84.9 fl (80-96); MEAN PLT VOLUME 8.3 fl (7.5-11.1); PLATELET COUNT 303 10^3/uL (134-434); RBC 4.63 M/mm3 (4.00-5.60); RDW 13.6 % (11.9-15.9); WHITE BLOOD COUNT 5.7 K/mm3 (4.0-10.0)
[2023-03-18 11:37] LABS: POTASSIUM 4.1 mmol/L (3.5-5.1)
[2023-03-18 11:58] LABS: CREATININE 0.8 mg/dL (0.55-1.3)
[2023-03-18 12:00] LABS: BILIRUBIN,TOTAL 0.5 mg/dL (0.2-1); TOT PROT 6.8 g/dl (6.4-8.2)
[2023-03-18 12:06] LABS: CALCIUM 8.8 mg/dL (8.5-10.1)
[2023-03-18 12:07] LABS: BLOOD UREA NITROGEN 12.5 mg/dL (7-18)
[2023-03-18] MEDS ORDERED: COLLOIDAL OATMEAL 1 BAR EACH TP PRN (14:53)
[2023-03-18] MEDS ORDERED: ATORVASTATIN CA 20 MG TABLET (FP) PO SCH (22:00)
[2023-03-18] MEDS: risperiDONE 2 MG TABLET PO SCH (22:14)
[2023-03-18] MEDS: ESCITALOPRAM OXALATE 10 MG TABLET PO SCH (22:14)
[2023-03-18] MEDS: THIAMINE HCL 100 MG TABLET (FP) PO SCH (22:14)
[2023-03-18] MEDS: MIRTAZAPINE 30 MG TABLET PO SCH (22:15)
[2023-03-19] MEDS: chlordiazePOXIDE HCL 25 MG CAPSULE PO SCH ×4 (05:58→23:34)
[2023-03-19] MEDS: BICTEGRAV/EMTRICIT/TENOFOV (BIKTARVY) 50-200-25 MG TABLET PO SCH (10:33)
[2023-03-19] MEDS: PRENATAL VITAMINS W/ FOLIC ACID TABLET (FP) PO SCH (10:33)
[2023-03-19 11:37] LABS: CHOLESTEROL 143 mg/dL (50-200)
[2023-03-19 11:38] LABS: LDL CHOLESTEROL (ONLY SJRH) 82 mg/dL (5-100)
[2023-03-19 11:40] LABS: HDL CHOLESTEROL 47 mg/dL (40-60)
[2023-03-19] MEDS: ESCITALOPRAM OXALATE 10 MG TABLET PO SCH (22:13)
[2023-03-19] MEDS: MIRTAZAPINE 30 MG TABLET PO SCH (22:13)
[2023-03-19] MEDS: risperiDONE 2 MG TABLET PO SCH (22:13)
[2023-03-19] MEDS: THIAMINE HCL 100 MG TABLET (FP) PO SCH (22:13)
[2023-03-20] MEDS ORDERED: chlordiazePOXIDE HCL 10 MG CAPSULE PO PRN
[2023-03-20] MEDS: chlordiazePOXIDE HCL 10 MG CAPSULE PO SCH ×4 (06:28→22:13)
[2023-03-20] MEDS: PRENATAL VITAMINS W/ FOLIC ACID TABLET (FP) PO SCH (10:42)
[2023-03-20] MEDS: BICTEGRAV/EMTRICIT/TENOFOV (BIKTARVY) 50-200-25 MG TABLET PO SCH (10:42)
[2023-03-20] MEDS: risperiDONE 2 MG TABLET PO SCH (22:12)
[2023-03-20] MEDS: ESCITALOPRAM OXALATE 10 MG TABLET PO SCH (22:12)
[2023-03-20] MEDS: THIAMINE HCL 100 MG TABLET (FP) PO SCH (22:12)
[2023-03-20] MEDS: MIRTAZAPINE 30 MG TABLET PO SCH (22:12)
[2023-03-21] MEDS: chlordiazePOXIDE HCL 10 MG CAPSULE PO SCH ×2 (05:53→17:31)
[2023-03-21] MEDS: BICTEGRAV/EMTRICIT/TENOFOV (BIKTARVY) 50-200-25 MG TABLET PO SCH (11:00)
[2023-03-21] MEDS: PRENATAL VITAMINS W/ FOLIC ACID TABLET (FP) PO SCH (11:00)
[2023-03-21] MEDS: THIAMINE HCL 100 MG TABLET (FP) PO SCH (22:22)
[2023-03-21] MEDS: MIRTAZAPINE 30 MG TABLET PO SCH (22:22)
[2023-03-21] MEDS: risperiDONE 2 MG TABLET PO SCH (22:23)
[2023-03-21] MEDS: ESCITALOPRAM OXALATE 10 MG TABLET PO SCH (22:23)
[2023-03-22] MEDS ORDERED: chlordiazePOXIDE HCL 10 MG CAPSULE PO ONE (05:00)
[2023-03-22 06:19] VITALS: RESP 18
[2023-03-22] MEDS: BICTEGRAV/EMTRICIT/TENOFOV (BIKTARVY) 50-200-25 MG TABLET PO SCH (09:37)
[2023-03-22] MEDS: PRENATAL VITAMINS W/ FOLIC ACID TABLET (FP) PO SCH (09:37)
[2023-03-22 11:22] VITALS: BP 124/82; PULSE 97; TEMP 97.5
== END 2023-03-22 10:00 | disposition home or self-care (01) | DRG 775 ==
LOC: YASAS 14:13 → Y6N 20:23
PROVIDERS: ADMIT Allergy & Immunology; ATTEND Allergy & Immunology
PROC: HZ2ZZZZ Detoxification Services for Substance Abuse Treatment (ICD-10-PCS; principal; 2023-03-17)
DX: F10.230 Alcohol dependence with withdrawal, uncomplicated (principal); F15.20 Other stimulant dependence, uncomplicated; F19.282 Other psychoactive substance dependence with psychoactive substance-induced sleep disorder; F25.1 Schizoaffective disorder, depressive type; Z21 Asymptomatic human immunodeficiency virus [HIV] infection status; Z86.19 Personal history of other infectious and parasitic diseases
CPT/HCPCS: 36415; 80053; 80061; 82306; 85027; 86593; 86780; 87635

== ENCOUNTER 2023-05-09 21:45 | Inpatient (IN) | payer OTHER ==
[2023-05-09 22:53] VITALS: BMI 24.3
[2023-05-10] MEDS ORDERED: IBUPROFEN 400 MG TABLET (FP) PO PRN
[2023-05-10] MEDS ORDERED: guaiFENesin 600 MG TABLET.ER (FP) PO PRN
[2023-05-10] MEDS ORDERED: ACETAMINOPHEN 325 MG TABLET (FP) PO PRN
[2023-05-10] MEDS ORDERED: DICYCLOMINE HCL 10 MG CAPSULE PO PRN
[2023-05-10] MEDS ORDERED: MAGNESIUM HYDROX 2400MG/30ML ORAL SUSPENSION 30 ML CUP PO PRN
[2023-05-10] MEDS ORDERED: METHOCARBAMOL 500 MG TABLET PO PRN
[2023-05-10] MEDS ORDERED: IBUPROFEN 600 MG TABLET (FP) PO PRN
[2023-05-10] MEDS ORDERED: NALOXONE HCL (KLOXXADO) 8 MG SPRAY NS PRN
[2023-05-10] MEDS ORDERED: BENZONATATE 200 MG CAPSULE PO PRN
[2023-05-10] MEDS ORDERED: BENZOCAINE/MENTHOL (CHLORASEPTIC ) LOZENGE MM PRN
[2023-05-10] MEDS ORDERED: LOPERAMIDE HCL 2 MG CAPSULE PO PRN
[2023-05-10] MEDS ORDERED: POLYETHYLENE GLYCOL (HEALTHYLAX) 3350 17 GM PACKET PO PRN
[2023-05-10] MEDS ORDERED: BISMUTH SUBSALICYLATE 524 MG/30 ML PO PRN
[2023-05-10] MEDS ORDERED: ONDANSETRON *ODT* 4 MG TABLET SL PRN
[2023-05-10] MEDS ORDERED: chlordiazePOXIDE HCL 25 MG CAPSULE PO PRN
[2023-05-10] MEDS ORDERED: chlordiazePOXIDE HCL 25 MG CAPSULE PO ONE
[2023-05-10] MEDS ORDERED: NALOXONE HCL 0.4 MG/ML VIAL IM PRN
[2023-05-10] MEDS ORDERED: MAG HYDROX/AL HYDROX/SIMETH 30 ML UNIT-DOSE CUP PO PRN
[2023-05-10] MEDS: AMOX TR/POT CLAV 875MG/125MG TABLETS (FP) PO SCH ×3 (04:58→17:42)
[2023-05-10] MEDS ORDERED: chlordiazePOXIDE HCL 25 MG CAPSULE ONE (05:05)
[2023-05-10] MEDS: chlordiazePOXIDE HCL 25 MG CAPSULE PO SCH ×4 (05:40→22:22)
[2023-05-10] MEDS: BICTEGRAV/EMTRICIT/TENOFOV (BIKTARVY) 50-200-25 MG TABLET PO SCH (08:08)
[2023-05-10] MEDS: PRENATAL VITAMINS W/ FOLIC ACID TABLET (FP) PO SCH (10:28)
[2023-05-10] MEDS: ESCITALOPRAM OXALATE 10 MG TABLET PO SCH (10:40)
[2023-05-10] MEDS: THIAMINE HCL 100 MG TABLET (FP) PO SCH (22:21)
[2023-05-10] MEDS: MELATONIN 5 MG TABLETS PO SCH (22:22)
[2023-05-10] MEDS: risperiDONE 2 MG TABLET PO SCH (22:23)
[2023-05-11] MEDS: chlordiazePOXIDE HCL 25 MG CAPSULE PO SCH ×4 (05:33→22:11)
[2023-05-11] MEDS: AMOX TR/POT CLAV 875MG/125MG TABLETS (FP) PO SCH ×2 (07:16→17:33)
[2023-05-11] MEDS: BICTEGRAV/EMTRICIT/TENOFOV (BIKTARVY) 50-200-25 MG TABLET PO SCH (07:16)
[2023-05-11] MEDS: ESCITALOPRAM OXALATE 10 MG TABLET PO SCH (10:14)
[2023-05-11] MEDS: PRENATAL VITAMINS W/ FOLIC ACID TABLET (FP) PO SCH (10:14)
[2023-05-11] MEDS: CHOLECALCIFEROL (VIT D3) 1,000 UNIT (25 MCG) TABLET PO SCH (13:21)
[2023-05-11] MEDS: risperiDONE 2 MG TABLET PO SCH (22:10)
[2023-05-11] MEDS: MELATONIN 5 MG TABLETS PO SCH (22:10)
[2023-05-11] MEDS: THIAMINE HCL 100 MG TABLET (FP) PO SCH (22:10)
[2023-05-12] MEDS ORDERED: chlordiazePOXIDE HCL 10 MG CAPSULE PO PRN
[2023-05-12] MEDS: chlordiazePOXIDE HCL 10 MG CAPSULE PO SCH ×4 (05:32→22:05)
[2023-05-12] MEDS: BICTEGRAV/EMTRICIT/TENOFOV (BIKTARVY) 50-200-25 MG TABLET PO SCH (07:08)
[2023-05-12] MEDS: AMOX TR/POT CLAV 875MG/125MG TABLETS (FP) PO SCH ×2 (07:08→17:19)
[2023-05-12] MEDS: ESCITALOPRAM OXALATE 10 MG TABLET PO SCH (10:39)
[2023-05-12] MEDS: PRENATAL VITAMINS W/ FOLIC ACID TABLET (FP) PO SCH (10:39)
[2023-05-12] MEDS: CHOLECALCIFEROL (VIT D3) 1,000 UNIT (25 MCG) TABLET PO SCH (11:23)
[2023-05-12] MEDS: THIAMINE HCL 100 MG TABLET (FP) PO SCH (22:05)
[2023-05-12] MEDS: risperiDONE 2 MG TABLET PO SCH (22:05)
[2023-05-12] MEDS: MELATONIN 5 MG TABLETS PO SCH (22:05)
[2023-05-12] MEDS: hydrOXYzine PAMOATE 25 MG CAPSULE (FP) PO PRN (23:23)
[2023-05-13] MEDS: chlordiazePOXIDE HCL 10 MG CAPSULE PO SCH ×2 (05:35→17:23)
[2023-05-13] MEDS: BICTEGRAV/EMTRICIT/TENOFOV (BIKTARVY) 50-200-25 MG TABLET PO SCH (07:41)
[2023-05-13] MEDS: AMOX TR/POT CLAV 875MG/125MG TABLETS (FP) PO SCH ×2 (07:41→17:22)
[2023-05-13] MEDS: PRENATAL VITAMINS W/ FOLIC ACID TABLET (FP) PO SCH (09:54)
[2023-05-13] MEDS: ESCITALOPRAM OXALATE 10 MG TABLET PO SCH (09:54)
[2023-05-13] MEDS: CHOLECALCIFEROL (VIT D3) 1,000 UNIT (25 MCG) TABLET PO SCH (09:55)
[2023-05-13 10:45] LABS: HEMATOCRIT 38.2 % (35.4-49); HEMOGLOBIN 13.3 GM/dL (11.7-16.9); MCH 28.3 pg (25.7-33.7); MCHC 34.7 g/dl (32.0-35.9); MEAN CELL VOLUME 81.4 fl (80-96); MEAN PLT VOLUME 7.9 fl (7.5-11.1); PLATELET COUNT 336 10^3/uL (134-434); RBC 4.69 M/mm3 (4.00-5.60); RDW 13.2 % (11.9-15.9); WHITE BLOOD COUNT 6.4 K/mm3 (4.0-10.0)
[2023-05-13 10:50] LABS: POTASSIUM 4.1 mmol/L (3.5-5.1)
[2023-05-13 10:56] LABS: ALBUMIN 2.9 g/dl (3.4-5.0); BLOOD UREA NITROGEN 12.4 mg/dL (7-18)
[2023-05-13 10:58] LABS: CREATININE 0.9 mg/dL (0.55-1.3)
[2023-05-13 11:00] LABS: BILIRUBIN,TOTAL 0.6 mg/dL (0.2-1); TOT PROT 6.8 g/dl (6.4-8.2)
[2023-05-13 11:02] LABS: CALCIUM 9.2 mg/dL (8.5-10.1)
[2023-05-13] MEDS: THIAMINE HCL 100 MG TABLET (FP) PO SCH (22:11)
[2023-05-13] MEDS: risperiDONE 2 MG TABLET PO SCH (22:11)
[2023-05-13] MEDS: MELATONIN 5 MG TABLETS PO SCH (22:11)
[2023-05-13] MEDS: hydrOXYzine PAMOATE 25 MG CAPSULE (FP) PO PRN (22:12)
[2023-05-14] MEDS ORDERED: chlordiazePOXIDE HCL 10 MG CAPSULE PO ONE (05:00)
[2023-05-14] MEDS: BICTEGRAV/EMTRICIT/TENOFOV (BIKTARVY) 50-200-25 MG TABLET PO SCH (07:05)
[2023-05-14] MEDS: AMOX TR/POT CLAV 875MG/125MG TABLETS (FP) PO SCH (07:05)
[2023-05-14] MEDS: CHOLECALCIFEROL (VIT D3) 1,000 UNIT (25 MCG) TABLET PO SCH (10:26)
[2023-05-14] MEDS: PRENATAL VITAMINS W/ FOLIC ACID TABLET (FP) PO SCH (10:26)
[2023-05-14] MEDS: ESCITALOPRAM OXALATE 10 MG TABLET PO SCH (10:26)
[2023-05-14 12:42] VITALS: BP 117/77; PULSE 100; RESP 18; TEMP 97.7
== END 2023-05-14 13:45 | disposition home or self-care (01) | DRG 775 ==
LOC: YASAS 21:45 → Y6N 05-10 08:20
PROVIDERS: ADMIT Allergy & Immunology; ATTEND Surgery
PROC: HZ2ZZZZ Detoxification Services for Substance Abuse Treatment (ICD-10-PCS; principal; 2023-05-10)
DX: F10.230 Alcohol dependence with withdrawal, uncomplicated (principal); F15.20 Other stimulant dependence, uncomplicated; F19.24 Other psychoactive substance dependence with psychoactive substance-induced mood disorder; F25.1 Schizoaffective disorder, depressive type; F32.A Depression, unspecified; F43.10 Post-traumatic stress disorder, unspecified; Z21 Asymptomatic human immunodeficiency virus [HIV] infection status; K13.0 Diseases of lips; Z62.810 Personal history of physical and sexual abuse in childhood; Z86.19 Personal history of other infectious and parasitic diseases
CPT/HCPCS: 36415; 80053; 85027; 86593; 86780; 87635; 87811

== ENCOUNTER 2023-08-27 12:50 | Inpatient (IN) | payer OTHER ==
[2023-08-27 14:39] VITALS: BMI 21.6
[2023-08-27] MEDS ORDERED: chlordiazePOXIDE HCL 25 MG CAPSULE PO PRN (14:41)
[2023-08-27] MEDS ORDERED: LOPERAMIDE HCL 2 MG CAPSULE PO PRN (14:41)
[2023-08-27] MEDS ORDERED: IBUPROFEN 400 MG TABLET (FP) PO PRN (14:41)
[2023-08-27] MEDS ORDERED: MAGNESIUM HYDROX 2400MG/30ML ORAL SUSPENSION 30 ML CUP PO PRN (14:41)
[2023-08-27] MEDS ORDERED: POLYETHYLENE GLYCOL (HEALTHYLAX) 3350 17 GM PACKET PO PRN (14:41)
[2023-08-27] MEDS ORDERED: NALOXONE HCL 0.4 MG/ML VIAL IM PRN (14:41)
[2023-08-27] MEDS ORDERED: BENZOCAINE/MENTHOL (CHLORASEPTIC ) LOZENGE MM PRN (14:41)
[2023-08-27] MEDS ORDERED: NALOXONE HCL (KLOXXADO) 8 MG SPRAY NS PRN (14:41)
[2023-08-27] MEDS ORDERED: DICYCLOMINE HCL 10 MG CAPSULE PO PRN (14:41)
[2023-08-27] MEDS ORDERED: BENZONATATE 200 MG CAPSULE PO PRN (14:41)
[2023-08-27] MEDS ORDERED: ONDANSETRON *ODT* 4 MG TABLET SL PRN (14:41)
[2023-08-27] MEDS ORDERED: ACETAMINOPHEN 325 MG TABLET (FP) PO PRN (14:41)
[2023-08-27] MEDS ORDERED: MAG HYDROX/AL HYDROX/SIMETH 30 ML UNIT-DOSE CUP PO PRN (14:41)
[2023-08-27] MEDS ORDERED: guaiFENesin 600 MG TABLET.ER (FP) PO PRN (14:41)
[2023-08-27] MEDS ORDERED: IBUPROFEN 600 MG TABLET (FP) PO PRN (14:41)
[2023-08-27] MEDS ORDERED: hydrOXYzine PAMOATE 25 MG CAPSULE (FP) PO PRN (14:41)
[2023-08-27] MEDS ORDERED: METHOCARBAMOL 500 MG TABLET PO PRN (14:41)
[2023-08-27] MEDS: chlordiazePOXIDE HCL 25 MG CAPSULE PO SCH ×2 (17:45→22:33)
[2023-08-27] MEDS ORDERED: MELATONIN 5 MG TABLETS PO SCH (22:00)
[2023-08-27] MEDS: BISMUTH SUBSALICYLATE 262 MG/15 ML BTL PO PRN (22:33)
[2023-08-27] MEDS: THIAMINE HCL 100 MG TABLET (FP) PO SCH (22:33)
[2023-08-28] MEDS: chlordiazePOXIDE HCL 25 MG CAPSULE PO SCH ×4 (05:46→22:41)
[2023-08-28] MEDS: BICTEGRAV/EMTRICIT/TENOFOV (BIKTARVY) 50-200-25 MG TABLET PO SCH (07:36)
[2023-08-28] MEDS: PRENATAL VITAMINS W/ FOLIC ACID TABLET (FP) PO SCH ×2 (10:20)
[2023-08-28] MEDS: CHOLECALCIFEROL (VIT D3) 1,000 UNIT (25 MCG) TABLET PO SCH (10:20)
[2023-08-28 10:36] LABS: HEMATOCRIT 39.9 % (35.4-49); HEMOGLOBIN 12.7 GM/dL (11.7-16.9); MCH 26.8 pg (25.7-33.7); MCHC 31.7 g/dl (32.0-35.9); MEAN CELL VOLUME 84.4 fl (80-96); MEAN PLT VOLUME 7.9 fl (7.5-11.1); PLATELET COUNT 338 10^3/uL (134-434); RBC 4.73 M/mm3 (4.00-5.60); RDW 13.5 % (11.9-15.9); WHITE BLOOD COUNT 7.2 K/mm3 (4.0-10.0)
[2023-08-28 10:53] LABS: CHLORIDE 107 mmol/L (98-107); POTASSIUM 4.1 mmol/L (3.5-5.1); SODIUM 140 mmol/L (136-145)
[2023-08-28 10:56] LABS: CALCIUM 8.8 mg/dL (8.5-10.1); GLUCOSE,RANDOM 95 mg/dL (74-106)
[2023-08-28 10:57] LABS: ANION GAP 6 mmol/L (4-13); BLOOD UREA NITROGEN 10.4 mg/dL (7-18); CO2 27 mmol/L (21-32)
[2023-08-28 10:59] LABS: CREATININE 0.9 mg/dL (0.55-1.3); SGPT/ALT 24 U/L (13-61)
[2023-08-28 11:00] LABS: SGOT/AST 13 U/L (15-37)
[2023-08-28 11:02] LABS: ALK PHOS 90 U/L (45-117)
[2023-08-28 11:03] LABS: BILIRUBIN,TOTAL 0.6 mg/dL (0.2-1)
[2023-08-28] MEDS: ESCITALOPRAM OXALATE 10 MG TABLET PO SCH (15:30)
[2023-08-28] MEDS ORDERED: MIRTAZAPINE 15 MG TABLET (FP) PO SCH (22:00)
[2023-08-28] MEDS: THIAMINE HCL 100 MG TABLET (FP) PO SCH (22:41)
[2023-08-28] MEDS: risperiDONE 2 MG TABLET PO SCH (22:42)
[2023-08-28] MEDS: MIRTAZAPINE 30 MG TABLET PO SCH (22:42)
[2023-08-29] MEDS: chlordiazePOXIDE HCL 25 MG CAPSULE PO SCH ×4 (05:36→22:11)
[2023-08-29] MEDS: BICTEGRAV/EMTRICIT/TENOFOV (BIKTARVY) 50-200-25 MG TABLET PO SCH (07:42)
[2023-08-29] MEDS: CHOLECALCIFEROL (VIT D3) 1,000 UNIT (25 MCG) TABLET PO SCH (10:29)
[2023-08-29] MEDS: PRENATAL VITAMINS W/ FOLIC ACID TABLET (FP) PO SCH (10:29)
[2023-08-29] MEDS: ESCITALOPRAM OXALATE 10 MG TABLET PO SCH (10:29)
[2023-08-29] MEDS: risperiDONE 2 MG TABLET PO SCH (22:11)
[2023-08-29] MEDS: MIRTAZAPINE 30 MG TABLET PO SCH (22:11)
[2023-08-29] MEDS: THIAMINE HCL 100 MG TABLET (FP) PO SCH (22:12)
[2023-08-30] MEDS ORDERED: chlordiazePOXIDE HCL 10 MG CAPSULE PO PRN
[2023-08-30] MEDS: chlordiazePOXIDE HCL 10 MG CAPSULE PO SCH ×4 (05:57→22:08)
[2023-08-30] MEDS: BICTEGRAV/EMTRICIT/TENOFOV (BIKTARVY) 50-200-25 MG TABLET PO SCH (07:27)
[2023-08-30] MEDS: ESCITALOPRAM OXALATE 10 MG TABLET PO SCH (10:24)
[2023-08-30] MEDS: PRENATAL VITAMINS W/ FOLIC ACID TABLET (FP) PO SCH (10:24)
[2023-08-30] MEDS: CHOLECALCIFEROL (VIT D3) 1,000 UNIT (25 MCG) TABLET PO SCH (10:24)
[2023-08-30] MEDS: THIAMINE HCL 100 MG TABLET (FP) PO SCH (22:07)
[2023-08-30] MEDS: risperiDONE 2 MG TABLET PO SCH (22:07)
[2023-08-30] MEDS: MIRTAZAPINE 30 MG TABLET PO SCH (22:07)
[2023-08-31] MEDS: chlordiazePOXIDE HCL 10 MG CAPSULE PO SCH ×2 (05:49→17:20)
[2023-08-31] MEDS: BICTEGRAV/EMTRICIT/TENOFOV (BIKTARVY) 50-200-25 MG TABLET PO SCH (07:39)
[2023-08-31] MEDS: PRENATAL VITAMINS W/ FOLIC ACID TABLET (FP) PO SCH (10:42)
[2023-08-31] MEDS: CHOLECALCIFEROL (VIT D3) 1,000 UNIT (25 MCG) TABLET PO SCH (10:42)
[2023-08-31] MEDS: ESCITALOPRAM OXALATE 10 MG TABLET PO SCH (10:42)
[2023-08-31] MEDS: THIAMINE HCL 100 MG TABLET (FP) PO SCH (22:01)
[2023-08-31] MEDS: MIRTAZAPINE 30 MG TABLET PO SCH (22:01)
[2023-08-31] MEDS: risperiDONE 2 MG TABLET PO SCH (22:01)
[2023-08-31] MEDS: BISMUTH SUBSALICYLATE 262 MG/15 ML BTL PO PRN (22:02)
[2023-09-01] MEDS ORDERED: chlordiazePOXIDE HCL 10 MG CAPSULE PO ONE (05:00)
[2023-09-01] MEDS: BICTEGRAV/EMTRICIT/TENOFOV (BIKTARVY) 50-200-25 MG TABLET PO SCH (07:30)
[2023-09-01] MEDS: CHOLECALCIFEROL (VIT D3) 1,000 UNIT (25 MCG) TABLET PO SCH (10:26)
[2023-09-01] MEDS: ESCITALOPRAM OXALATE 10 MG TABLET PO SCH (10:26)
[2023-09-01] MEDS: PRENATAL VITAMINS W/ FOLIC ACID TABLET (FP) PO SCH (10:26)
[2023-09-01 10:53] VITALS: BP 118/71; PULSE 101; RESP 20; TEMP 98.2
== END 2023-09-01 11:57 | disposition other institution (70) | DRG 775 ==
LOC: YASAS 12:50 → Y6N 16:35
PROVIDERS: ADMIT Allergy & Immunology; ATTEND Surgery
PROC: HZ2ZZZZ Detoxification Services for Substance Abuse Treatment (ICD-10-PCS; principal; 2023-08-27)
DX: F10.230 Alcohol dependence with withdrawal, uncomplicated (principal); F15.10 Other stimulant abuse, uncomplicated; F19.280 Other psychoactive substance dependence with psychoactive substance-induced anxiety disorder; F19.282 Other psychoactive substance dependence with psychoactive substance-induced sleep disorder; F33.1 Major depressive disorder, recurrent, moderate; F43.10 Post-traumatic stress disorder, unspecified; Z21 Asymptomatic human immunodeficiency virus [HIV] infection status; E78.5 Hyperlipidemia, unspecified; E50.9 Vitamin A deficiency, unspecified; Z86.19 Personal history of other infectious and parasitic diseases; Z87.01 Personal history of pneumonia (recurrent)
CPT/HCPCS: 36415; 80053; 80307; 85027; 86593; 86780; 87635

== ENCOUNTER 2023-09-01 12:07 | Inpatient (IN) | payer OTHER ==
[~2023-09-01 12:07] MED LIST changes: -ACETAMINOPHEN 325 MG TABLET (FP) PO PRN; -BENZOCAINE/MENTHOL (CHLORASEPTIC ) LOZENGE MM PRN; +BENZONATATE 200 MG CAPSULE PO PRN; +IBUPROFEN 600 MG TABLET (FP) PO PRN; -LOPERAMIDE HCL 2 MG CAPSULE PO PRN; -MAG HYDROX/AL HYDROX/SIMETH 30 ML UNIT-DOSE CUP PO PRN; +METHOCARBAMOL 500 MG TABLET PO PRN; -NICOTINE POLACRILEX 2 MG GUM BC PRN; +NICOTINE POLACRILEX 2 MG GUM BUC PRN; -P-EPHED 60MG/TRIPROLIDI 2.5MG TABLET PO PRN; -guaiFENesin 200 MG/10 ML 10 ML UNIT-DOSE CUPS PO PRN; +guaiFENesin 600 MG TABLET.ER (FP) PO PRN
[2023-09-01] MEDS: ACAMPROSATE CALCIUM 333 MG TABLET.DR PO SCH (14:28)
[2023-09-01] MEDS: THIAMINE HCL 100 MG TABLET (FP) PO SCH (21:29)
[2023-09-01] MEDS: MIRTAZAPINE 30 MG TABLET PO SCH (21:30)
[2023-09-01] MEDS: MELATONIN 5 MG TABLETS PO SCH (21:30)
[2023-09-01] MEDS: risperiDONE 2 MG TABLET PO SCH (21:30)
[2023-09-02] MEDS: BICTEGRAV/EMTRICIT/TENOFOV (BIKTARVY) 50-200-25 MG TABLET PO SCH (07:11)
[2023-09-02] MEDS: CHOLECALCIFEROL (VIT D3) 1,000 UNIT (25 MCG) TABLET PO SCH (09:51)
[2023-09-02] MEDS: PRENATAL VITAMINS W/ FOLIC ACID TABLET (FP) PO SCH (09:51)
[2023-09-02] MEDS: ESCITALOPRAM OXALATE 10 MG TABLET PO SCH (09:51)
[2023-09-03] MEDS: LOPERAMIDE HCL 2 MG CAPSULE PO PRN (05:57)
[2023-09-14] MEDS: ACETAMINOPHEN 325 MG TABLET (FP) PO PRN (16:52)
[2023-09-14] MEDS: hydrOXYzine PAMOATE 25 MG CAPSULE (FP) PO PRN (21:19)
[2023-09-15] MEDS: BENZOCAINE/MENTHOL (CHLORASEPTIC ) LOZENGE MM PRN (02:26)
[2023-09-15] MEDS: guaiFENesin 600 MG TABLET.ER (FP) PO SCH (12:14)
[2023-09-15] MEDS: P-EPHED 60MG/TRIPROLIDI 2.5MG TABLET PO PRN (14:46)
[2023-09-15] MEDS: SUVOREXANT 5 MG TABLET PO PRN (21:10)
[2023-09-16] MEDS: NALTREXONE HCL 50 MG TABLET PO ONE (09:59)
[2023-09-16] MEDS ORDERED: NALTREXONE HCL 50 MG TABLET PO SCH (10:00)
[2023-09-16] MEDS: MAG HYDROX/AL HYDROX/SIMETH 30 ML UNIT-DOSE CUP PO PRN (22:30)
[2023-09-17] MEDS: NALTREXONE HCL 50 MG TABLET PO SCH (09:56)
[2023-09-17] MEDS: LACTULOSE 20 GM/30 ML UDC (FOR ORAL USE ONLY) PO SCH (21:35)
[2023-09-19] MEDS: SUVOREXANT 5 MG TABLET PO PRN (22:05)
[2023-09-21] MEDS ORDERED: SUVOREXANT 5 MG TABLET PO PRN (22:00)
[2023-09-22] MEDS: NALTREXONE MICROSPHERES (VIVITROL) 380 MG DISP.SYRIN IM ONE (06:45)
[2023-09-22 07:16] VITALS: BP 117/83; PULSE 86; RESP 18; TEMP 97.6
== END 2023-09-22 09:55 | disposition home or self-care (01) | DRG 772 ==
LOC: YASAS 12:07 → Y5N 12:08
PROVIDERS: ADMIT Allergy & Immunology; ATTEND Psychiatry & Neurology Pain Medicine
PROC: HZ42ZZZ Group Counseling for Substance Abuse Treatment, Cognitive-Behavioral (ICD-10-PCS; principal; 2023-09-01)
DX: F10.20 Alcohol dependence, uncomplicated (principal); F15.10 Other stimulant abuse, uncomplicated; F25.1 Schizoaffective disorder, depressive type; F41.9 Anxiety disorder, unspecified; F32.A Depression, unspecified; Z21 Asymptomatic human immunodeficiency virus [HIV] infection status; E72.20 Disorder of urea cycle metabolism, unspecified; E78.5 Hyperlipidemia, unspecified; J06.9 Acute upper respiratory infection, unspecified; Z86.19 Personal history of other infectious and parasitic diseases; Z59.02 Unsheltered homelessness
CPT/HCPCS: 0241U-QW; 36415; 82140; 86803; J2315

== ENCOUNTER 2024-01-11 14:49 | Inpatient (IN) | payer OTHER ==
[2024-01-11 16:30] VITALS: BMI 22.2
[2024-01-11] MEDS ORDERED: POLYETHYLENE GLYCOL (HEALTHYLAX) 3350 17 GM PACKET PO PRN (17:04)
[2024-01-11] MEDS ORDERED: ONDANSETRON *ODT* 4 MG TABLET SL PRN (17:04)
[2024-01-11] MEDS ORDERED: LOPERAMIDE HCL 2 MG CAPSULE PO PRN (17:04)
[2024-01-11] MEDS ORDERED: DICYCLOMINE HCL 10 MG CAPSULE PO PRN (17:04)
[2024-01-11] MEDS ORDERED: MAG HYDROX/AL HYDROX/SIMETH 30 ML UNIT-DOSE CUP PO PRN (17:04)
[2024-01-11] MEDS ORDERED: BENZOCAINE/MENTHOL (CHLORASEPTIC ) LOZENGE MM PRN (17:04)
[2024-01-11] MEDS ORDERED: BISMUTH SUBSALICYLATE 524 MG/30 ML PO PRN (17:04)
[2024-01-11] MEDS ORDERED: MAGNESIUM HYDROX 2400MG/30ML ORAL SUSPENSION 30 ML CUP PO PRN (17:04)
[2024-01-11] MEDS ORDERED: P-EPHED 60MG/TRIPROLIDI 2.5MG TABLET PO PRN (17:04)
[2024-01-11] MEDS ORDERED: IBUPROFEN 600 MG TABLET (FP) PO PRN (17:04)
[2024-01-11] MEDS ORDERED: BENZONATATE 200 MG CAPSULE PO PRN (17:04)
[2024-01-11] MEDS ORDERED: guaiFENesin 600 MG TABLET.ER (FP) PO PRN (17:04)
[2024-01-11] MEDS: METHOCARBAMOL 500 MG TABLET PO PRN (19:10)
[2024-01-11] MEDS: ACETAMINOPHEN 325 MG TABLET (FP) PO PRN (19:25)
[2024-01-11] MEDS: MELATONIN 5 MG TABLETS PO SCH (21:23)
[2024-01-11] MEDS: THIAMINE 100 MG TABLET PO SCH (21:23)
[2024-01-11] MEDS: hydrOXYzine PAMOATE 25 MG CAPSULE (FP) PO PRN (21:24)
[2024-01-11] MEDS: IBUPROFEN 400 MG TABLET (FP) PO PRN (21:24)
[2024-01-12 06:12] VITALS: RESP 16
[2024-01-12 09:40] VITALS: BP 119/74; PULSE 80; TEMP 97.7
[2024-01-12] MEDS: BICTEGRAV/EMTRICIT/TENOFOV (BIKTARVY) 50-200-25 MG TABLET PO SCH (10:01)
[2024-01-12] MEDS: PRENATAL VITAMINS W/ FOLIC ACID TABLET (FP) PO SCH (10:01)
[2024-01-12] MEDS: CHOLECALCIFEROL (VIT D3) 1,000 UNIT (25 MCG) TABLET PO SCH (10:02)
[2024-01-12 12:01] LABS: HEMATOCRIT 37.5 % (35.4-49); HEMOGLOBIN 12.4 GM/dL (11.7-16.9); MEAN CELL VOLUME 82.1 fl (80-96); MEAN PLT VOLUME 8.7 fl (7.5-11.1); PLATELET COUNT 295 10^3/uL (134-434); RBC 4.57 M/mm3 (4.00-5.60); WHITE BLOOD COUNT 3.7 K/mm3 (4.0-10.0)
[2024-01-12 12:08] LABS: CHLORIDE 110 mmol/L (98-107); POTASSIUM 3.4 mmol/L (3.5-5.1); SODIUM 144 mmol/L (136-145)
[2024-01-12 12:16] LABS: ALBUMIN 2.8 g/dl (3.4-5.0); ANION GAP 6 mmol/L (4-13); BLOOD UREA NITROGEN 15.6 mg/dL (7-18); CALCIUM 8.5 mg/dL (8.5-10.1); CO2 27 mmol/L (21-32); GLUCOSE,RANDOM 129 mg/dL (74-106)
[2024-01-12 12:19] LABS: CREATININE 0.9 mg/dL (0.55-1.3); SGOT/AST 9 U/L (15-37); SGPT/ALT 14 U/L (13-61)
[2024-01-12 12:21] LABS: BILIRUBIN,TOTAL 0.6 mg/dL (0.2-1); TOT PROT 6.3 g/dl (6.4-8.2)
[2024-01-12 12:22] LABS: ALK PHOS 80 U/L (45-117)
== END 2024-01-12 10:38 | disposition home or self-care (01) | DRG 775 ==
LOC: YASAS 14:49 → Y6N 17:15
PROVIDERS: ADMIT Allergy & Immunology; ATTEND Surgery
PROC: HZ2ZZZZ Detoxification Services for Substance Abuse Treatment (ICD-10-PCS; principal; 2024-01-11)
DX: F10.20 Alcohol dependence, uncomplicated (principal); F15.20 Other stimulant dependence, uncomplicated; F25.1 Schizoaffective disorder, depressive type; F43.10 Post-traumatic stress disorder, unspecified; F41.9 Anxiety disorder, unspecified; Z21 Asymptomatic human immunodeficiency virus [HIV] infection status; E78.5 Hyperlipidemia, unspecified; Z87.891 Personal history of nicotine dependence; Z86.19 Personal history of other infectious and parasitic diseases; Z79.899 Other long term (current) drug therapy; Z59.02 Unsheltered homelessness
CPT/HCPCS: 0241U-QW; 36415; 80053; 80305; 80307; 85027; 86593; 86780

== ENCOUNTER 2024-04-12 13:25 | Inpatient (IN) | payer OTHER ==
[2024-04-12 14:30] VITALS: BMI 22.4
[2024-04-12] MEDS ORDERED: IBUPROFEN 400 MG TABLET (FP) PO PRN (15:59)
[2024-04-12] MEDS ORDERED: LOPERAMIDE HCL 2 MG CAPSULE PO PRN (15:59)
[2024-04-12] MEDS ORDERED: guaiFENesin 600 MG TABLET.ER (FP) PO PRN (15:59)
[2024-04-12] MEDS ORDERED: BENZOCAINE/MENTHOL (CHLORASEPTIC ) LOZENGE MM PRN (15:59)
[2024-04-12] MEDS ORDERED: BENZONATATE 200 MG CAPSULE PO PRN (15:59)
[2024-04-12] MEDS ORDERED: NALOXONE (NARCAN) HCL 4 MG/0.1 ML SPRAY NS PRN (15:59)
[2024-04-12] MEDS ORDERED: NALOXONE HCL 0.4 MG/ML VIAL IM PRN (15:59)
[2024-04-12] MEDS ORDERED: POLYETHYLENE GLYCOL (HEALTHYLAX) 3350 17 GM PACKET PO PRN (15:59)
[2024-04-12] MEDS ORDERED: MAGNESIUM HYDROX 2400MG/30ML ORAL SUSPENSION 30 ML CUP PO PRN (15:59)
[2024-04-12] MEDS: TUBERCULIN PPD 5 TU/0.1ML SYRINGE (IN PATIENT USE ONLY) ID ONE (20:18)
[2024-04-12] MEDS: MELATONIN 5 MG TABLETS PO SCH (22:23)
[2024-04-12] MEDS: THIAMINE 100 MG TABLET PO SCH (22:23)
[2024-04-12] MEDS: hydrOXYzine PAMOATE 25 MG CAPSULE (FP) PO PRN (22:24)
[2024-04-13] MEDS: PRENATAL VITAMINS W/ FOLIC ACID TABLET (FP) PO SCH (10:27)
[2024-04-13 12:11] LABS: HEMATOCRIT 38.9 % (35.4-49); HEMOGLOBIN 12.8 GM/dL (11.7-16.9); MCH 27.7 pg (25.7-33.7); MEAN CELL VOLUME 83.9 fl (80-96); MEAN PLT VOLUME 8.2 fl (7.5-11.1); PLATELET COUNT 303 10^3/uL (134-434); RBC 4.64 M/mm3 (4.00-5.60); RDW 13.4 % (11.9-15.9)
[2024-04-13 13:15] LABS: CHLORIDE 105 mmol/L (98-107); POTASSIUM 3.8 mmol/L (3.5-5.1); SODIUM 139 mmol/L (136-145)
[2024-04-13 13:28] LABS: ANION GAP 8 mmol/L (4-13); BLOOD UREA NITROGEN 11.4 mg/dL (7-18); CALCIUM 8.9 mg/dL (8.5-10.1); CO2 26 mmol/L (21-32); GLUCOSE,RANDOM 137 mg/dL (74-106)
[2024-04-13 13:31] LABS: CREATININE 0.9 mg/dL (0.55-1.3); SGPT/ALT 21 U/L (13-61)
[2024-04-13 13:32] LABS: BILIRUBIN,TOTAL 0.5 mg/dL (0.2-1); SGOT/AST 19 U/L (15-37); TOT PROT 6.6 g/dl (6.4-8.2)
[2024-04-13 13:34] LABS: ALK PHOS 93 U/L (45-117)
[2024-04-13 14:33] LABS: URINE APPEARANCE CLEAR; URINE BILIRUBIN NEGATIVE (NEGATIVE); URINE COLOR YELLOW; URINE GLUCOSE (UA) NEGATIVE (NEGATIVE); URINE KETONE NEGATIVE (NEGATIVE); URINE LEUK ESTERASE NEGATIVE (NEGATIVE); URINE NITRITE NEGATIVE (NEGATIVE); URINE PROTEIN TRACE (NEGATIVE)
[2024-04-13] MEDS: risperiDONE 1 MG TABLET PO SCH (14:46)
[2024-04-13] MEDS: MIRTAZAPINE 15 MG TABLET (FP) PO SCH (21:12)
[2024-04-14] MEDS: ESCITALOPRAM OXALATE 10 MG TABLET PO SCH (09:49)
[2024-04-15] MEDS: BICTEGRAV/EMTRICIT/TENOFOV (BIKTARVY) 50-200-25 MG TABLET PO SCH (14:01)
[2024-04-18] MEDS: ACETAMINOPHEN 325 MG TABLET (FP) PO PRN (18:20)
[2024-04-19] MEDS: MAG HYDROX/AL HYDROX/SIMETH 30 ML UNIT-DOSE CUP PO PRN (05:31)
[2024-04-19] MEDS: IBUPROFEN 600 MG TABLET (FP) PO PRN (06:11)
[2024-04-20 06:14] VITALS: TEMP 98.9
[2024-04-20 07:51] VITALS: RESP 16
[2024-04-20 07:53] VITALS: BP 109/70; PULSE 96
[2024-04-20] MEDS ORDERED: AZITHROMYCIN 250 MG TABLET PO ONE (15:35)
[2024-04-20] MEDS ORDERED: CEPHALEXIN MONOHYDRATE 500 MG CAPSULE (UD) PO SCH (22:00)
[2024-04-21] MEDS ORDERED: AZITHROMYCIN 250 MG TABLET PO SCH (10:00)
== END 2024-04-20 10:50 | disposition short-term general hospital (02) | DRG 772 ==
LOC: YASAS 13:25 → Y3NR 16:51 → UNDOADMIN 16:51 → Y3W 04-13 11:24
PROVIDERS: ADMIT Psychiatry & Neurology Pain Medicine; ATTEND Psychiatry & Neurology Pain Medicine
PROC: HZ42ZZZ Group Counseling for Substance Abuse Treatment, Cognitive-Behavioral (ICD-10-PCS; principal; 2024-04-12)
DX: F15.20 Other stimulant dependence, uncomplicated (principal); F10.10 Alcohol abuse, uncomplicated; F17.210 Nicotine dependence, cigarettes, uncomplicated; F25.1 Schizoaffective disorder, depressive type; F43.10 Post-traumatic stress disorder, unspecified; F41.9 Anxiety disorder, unspecified; Z21 Asymptomatic human immunodeficiency virus [HIV] infection status; G43.909 Migraine, unspecified, not intractable, without status migrainosus; I95.9 Hypotension, unspecified; R55 Syncope and collapse; R50.9 Fever, unspecified; Z87.01 Personal history of pneumonia (recurrent); Z79.899 Other long term (current) drug therapy
CPT/HCPCS: 36415; 80053; 80305; 80307; 81003; 82962; 85027; 86593; 86780; 87086; 87110; 87491; 87591; 87811; 93005; 93010

== ENCOUNTER 2024-04-20 07:41 | Inpatient (IN) | payer OTHER ==
[2024-04-20 07:57] VITALS: BMI 26.6
[2024-04-20] MEDS ORDERED: ACETAMINOPHEN INJECTION 100 ML ONE (09:02)
[2024-04-20] MEDS: SODIUM CHLORIDE 0.9% 1000 ML INFUS.BAG IV STA (09:16)
[2024-04-20] MEDS: ACETAMINOPHEN 1000 MG/100 ML BAG IVPB ONE (09:16)
[2024-04-20 09:41] LABS: VENOUS BASE EXCESS 1.3 mmol/L (-2-2); VENOUS O2 SATURATION 90.5 % (70-80); VENOUS PCO2 35.7 mmHg (38-52); VENOUS PH 7.46 (7.310-7.410)
[2024-04-20 09:52] LABS: HEMATOCRIT 34.9 % (35.4-49); HEMOGLOBIN 11.5 GM/dL (11.7-16.9); MCH 27.2 pg (25.7-33.7); MCHC 32.9 g/dl (32.0-35.9); MEAN CELL VOLUME 82.6 fl (80-96); MEAN PLT VOLUME 7.5 fl (7.5-11.1); PLATELET COUNT 290 10^3/uL (134-434); RBC 4.23 M/mm3 (4.00-5.60); RDW 13.3 % (11.9-15.9); WHITE BLOOD COUNT 22.7 K/mm3 (4.0-10.0)
[2024-04-20 09:55] LABS: INR 1.18 (0.83-1.09); PROTHROMBIN TIME (PATIENT) 13.5 SEC (9.7-13.0)
[2024-04-20 09:57] LABS: ACTIVATED PTT 34.6 SECONDS (25.2-36.5)
[2024-04-20 10:11] LABS: POTASSIUM 4.1 mmol/L (3.5-5.1)
[2024-04-20 10:17] LABS: CALCIUM 9.4 mg/dL (8.5-10.1)
[2024-04-20 10:18] LABS: BLOOD UREA NITROGEN 11.8 mg/dL (7-18)
[2024-04-20 10:22] LABS: BILIRUBIN,TOTAL 1.9 mg/dL (0.2-1)
[2024-04-20 10:23] LABS: TOT PROT 7.2 g/dl (6.4-8.2)
[2024-04-20 10:26] LABS: LACTIC ACID 2.3 mmol/L (0.4-2.0)
[2024-04-20 10:51] LABS: ANISOCYTOSIS 0; MACROCYTOSIS 0
[2024-04-20 11:01] LABS: EPI CELLS 0 /uL (0-25.1); HYALINE CASTS 0 /uL (0-3.1); PH,URINE 7.5 (5.0-8.0); URINE APPEARANCE CLEAR; URINE BACTERIA >9,000 /uL (0-1359); URINE BILIRUBIN NEGATIVE (NEGATIVE); URINE COLOR YELLOW; URINE GLUCOSE (UA) NEGATIVE (NEGATIVE); URINE KETONE NEGATIVE (NEGATIVE); URINE LEUK ESTERASE 2+ (NEGATIVE); URINE NITRITE POSITIVE (NEGATIVE); URINE PROTEIN TRACE (NEGATIVE); URINE RBC 7 /uL (0-23.9); URINE WBC 150 /uL (0-25.8)
[2024-04-20] MEDS ORDERED: CEFTRIAXONE 1 GM/50 ML BAG ONE (11:26)
[2024-04-20] MEDS ORDERED: AZITHROMYCIN IVPB 500 MG/250 ML BAG IVPB ONE (11:26)
[2024-04-20] MEDS: AZITHROMYCIN IVPB 500 MG in DEXTROSE 5%-WATER - 250 ML IVPB ONE (11:36)
[2024-04-20] MEDS: CEFTRIAXONE 1,000 MG in DEXTROSE 5%-WATER - 50 ML IVPB ONE (11:36)
[2024-04-20 11:46] LABS: URINE BENZODIAZEPINES NEGATIVE (NEGATIVE)
[2024-04-20 11:47] LABS: COCAINE, UR NEGATIVE (NEGATIVE); METHADONE, UR NEGATIVE (NEGATIVE); PHENCYCLIDINE,URINE NEGATIVE (NEGATIVE); URINE AMPHETAMINES NEGATIVE (NEGATIVE); URINE BARBITURATES NEGATIVE (NEGATIVE)
[2024-04-20 11:58] LABS: OPIATES, URI NEGATIVE (NEGATIVE)
[2024-04-20] MEDS: LACTATED RINGERS SOLUTION 1,000 ML/1,000 ML INFUS.BAG IV SCH (13:23)
[2024-04-20] MEDS: MIRTAZAPINE 15 MG TABLET (FP) PO SCH (21:52)
[2024-04-20] MEDS: ATORVASTATIN CA 40 MG TABLET (FP) PO SCH (21:52)
[2024-04-20] MEDS: HEPARIN NA (PORCINE) 5,000 UNITS/ML 1ML VIAL SQ SCH (21:52)
[2024-04-20] MEDS: ACETAMINOPHEN 1000 MG/100 ML BAG IVPB PRN (23:27)
[2024-04-21] MEDS: BICTEGRAV/EMTRICIT/TENOFOV (BIKTARVY) 50-200-25 MG TABLET PO SCH (08:05)
[2024-04-21 09:10] LABS: BASO % 0.3 % (0-2.0); EOS % 0.3 % (0-4.5); HEMATOCRIT 35.4 % (35.4-49); HEMOGLOBIN 11.2 GM/dL (11.7-16.9); LYMPH % 11.3 % (8-40); MCH 26.7 pg (25.7-33.7); MCHC 31.5 g/dl (32.0-35.9); MEAN CELL VOLUME 84.6 fl (80-96); MEAN PLT VOLUME 8.3 fl (7.5-11.1); MONO % 6.9 % (3.8-10.2); NEUT % 81.2 % (42.8-82.8); PLATELET COUNT 279 10^3/uL (134-434); RBC 4.19 M/mm3 (4.00-5.60); RDW 13.8 % (11.9-15.9)
[2024-04-21 09:30] LABS: POTASSIUM 4.1 mmol/L (3.5-5.1)
[2024-04-21 09:34] LABS: CALCIUM 8.7 mg/dL (8.5-10.1)
[2024-04-21 09:38] LABS: CREATININE 0.9 mg/dL (0.55-1.3)
[2024-04-21] MEDS: AZITHROMYCIN 250 MG TABLET PO SCH (09:40)
[2024-04-21] MEDS: risperiDONE 1 MG TABLET PO SCH (09:40)
[2024-04-21] MEDS: ESCITALOPRAM OXALATE 10 MG TABLET PO SCH (09:40)
[2024-04-21] MEDS: CEFTRIAXONE 1 GM in DEXTROSE 5%-WATER - 50 ML IVPB SCH (09:41)
[2024-04-21] MEDS: HEPATITIS A VIRUS VACCINE/PF 1440 UNIT/1 ML IM ONE (17:06)
[2024-04-22 09:42] LABS: BASO % 0.3 % (0-2.0); EOS % 1.1 % (0-4.5); HEMATOCRIT 37.8 % (35.4-49); HEMOGLOBIN 12.6 GM/dL (11.7-16.9); LYMPH % 28.9 % (8-40); MCH 27.5 pg (25.7-33.7); MCHC 33.3 g/dl (32.0-35.9); MEAN CELL VOLUME 82.6 fl (80-96); MEAN PLT VOLUME 7.6 fl (7.5-11.1); NEUT % 59.7 % (42.8-82.8); PLATELET COUNT 345 10^3/uL (134-434); RBC 4.57 M/mm3 (4.00-5.60); RDW 13.5 % (11.9-15.9); WHITE BLOOD COUNT 7.2 K/mm3 (4.0-10.0)
[2024-04-22 09:58] LABS: POTASSIUM 4.1 mmol/L (3.5-5.1)
[2024-04-22 10:07] LABS: ALBUMIN 2.8 g/dl (3.4-5.0); BLOOD UREA NITROGEN 12.6 mg/dL (7-18); CALCIUM 9.3 mg/dL (8.5-10.1)
[2024-04-22 10:08] LABS: MAGNESIUM 2.3 mg/dL (1.8-2.4)
[2024-04-22 10:10] LABS: CREATININE 0.9 mg/dL (0.55-1.3)
[2024-04-22 10:12] LABS: BILIRUBIN,TOTAL 0.8 mg/dL (0.2-1); TOT PROT 7.2 g/dl (6.4-8.2)
[2024-04-23] MEDS: ACETAMINOPHEN 325 MG TABLET (FP) PO ONE (01:07)
[2024-04-23] MEDS: ASPIRIN 81 MG CHEWABLE TABLETS PO ONE (05:34)
[2024-04-23 06:45] VITALS: PULSE 72
[2024-04-23 08:28] LABS: BASO % 0.2 % (0-2.0); EOS % 0.8 % (0-4.5); HEMOGLOBIN 12.6 GM/dL (11.7-16.9); LYMPH % 31.8 % (8-40); MCH 27.5 pg (25.7-33.7); MEAN CELL VOLUME 83.2 fl (80-96); MEAN PLT VOLUME 7.9 fl (7.5-11.1); MONO % 11.2 % (3.8-10.2); PLATELET COUNT 372 10^3/uL (134-434); POTASSIUM 4.6 mmol/L (3.5-5.1); RBC 4.57 M/mm3 (4.00-5.60); RDW 13.6 % (11.9-15.9); WHITE BLOOD COUNT 7.4 K/mm3 (4.0-10.0)
[2024-04-23 08:30] LABS: CALCIUM 9.3 mg/dL (8.5-10.1)
[2024-04-23 08:31] LABS: ALBUMIN 2.9 g/dl (3.4-5.0); BLOOD UREA NITROGEN 15.6 mg/dL (7-18); MAGNESIUM 2.3 mg/dL (1.8-2.4)
[2024-04-23 08:35] LABS: BILIRUBIN,TOTAL 0.6 mg/dL (0.2-1)
[2024-04-23 08:36] LABS: TOT PROT 7.3 g/dl (6.4-8.2)
[2024-04-23] MEDS: AZITHROMYCIN 250 MG TABLET PO SCH (10:52)
[2024-04-23] MEDS: ESCITALOPRAM OXALATE 10 MG TABLET PO SCH (10:52)
[2024-04-23] MEDS: HEPARIN NA (PORCINE) 5,000 UNITS/ML 1ML VIAL SQ SCH (10:52)
[2024-04-23] MEDS: CEFTRIAXONE 1 GM in DEXTROSE 5%-WATER - 50 ML IVPB SCH (10:52)
[2024-04-23 11:14] LABS: CHOLESTEROL 177 mg/dL (50-200)
[2024-04-23 11:15] LABS: LDL CHOLESTEROL (ONLY SJRH) 111 mg/dL (5-100)
[2024-04-23 11:17] LABS: HDL CHOLESTEROL 44 mg/dL (40-60)
[2024-04-23] MEDS: risperiDONE 1 MG TABLET PO SCH (11:33)
[2024-04-23 13:30] VITALS: BP 111/76; RESP 19; TEMP 98.2
[2024-04-23] MEDS ORDERED: ATORVASTATIN CA 40 MG TABLET (FP) PO SCH (22:00)
[2024-04-23] MEDS ORDERED: MIRTAZAPINE 15 MG TABLET (FP) PO SCH (22:00)
[2024-04-23] MEDS ORDERED: ENOXAPARIN NA (PORCINE) 80 MG/0.8 ML DISP.SYRIN SQ SCH (22:00)
[2024-04-24] MEDS ORDERED: BICTEGRAV/EMTRICIT/TENOFOV (BIKTARVY) 50-200-25 MG TABLET PO SCH (08:00)
[2024-04-24] MEDS ORDERED: ASPIRIN 81 MG CHEWABLE TABLETS PO SCH ×2 (10:00)
== END 2024-04-23 19:49 | disposition short-term general hospital (02) | DRG 720 ==
LOC: JER 07:41 → JERBED 11:59 → J8W 20:27 → J4S 04-23 06:39
PROVIDERS: ADMIT Internal Medicine; ATTEND Student in an Organized Health Care Education/Training Program
DX: A41.89 Other specified sepsis (principal); I21.4 Non-ST elevation (NSTEMI) myocardial infarction; J18.9 Pneumonia, unspecified organism; R07.89 Other chest pain; E78.5 Hyperlipidemia, unspecified; E86.0 Dehydration; N39.0 Urinary tract infection, site not specified; B96.20 Unspecified Escherichia coli [E. coli] as the cause of diseases classified elsewhere; G43.909 Migraine, unspecified, not intractable, without status migrainosus; R50.9 Fever, unspecified; D72.829 Elevated white blood cell count, unspecified; F43.10 Post-traumatic stress disorder, unspecified; Z20.5 Contact with and (suspected) exposure to viral hepatitis; F41.8 Other specified anxiety disorders; F15.10 Other stimulant abuse, uncomplicated; F25.1 Schizoaffective disorder, depressive type; R41.82 Altered mental status, unspecified; F19.10 Other psychoactive substance abuse, uncomplicated; Z86.59 Personal history of other mental and behavioral disorders; Z21 Asymptomatic human immunodeficiency virus [HIV] infection status
CPT/HCPCS: 0241U-QW; 36415; 70450-TC; 71045-TC-FY; 71250-TC; 80048; 80053; 80061; 80307; 81003; 82550; 82803; 83605; 83735; 84484; 85025; 85610; 85730; 86359; 86360; 86850; 86900; 86901; 87040; 87086; 87186; 87324; 87449; 87491; 87536; 87591; 87899; 90632; 93005; 93010; 99285-25; J0131; J1644

== ENCOUNTER 2024-04-27 17:01 | Inpatient (IN) | payer OTHER ==
[2024-04-27 17:20] VITALS: BMI 23.5
[2024-04-27] MEDS ORDERED: MAG HYDROX/AL HYDROX/SIMETH 30 ML UNIT-DOSE CUP PO PRN (18:54)
[2024-04-27] MEDS ORDERED: IBUPROFEN 600 MG TABLET (FP) PO PRN (18:54)
[2024-04-27] MEDS ORDERED: NALOXONE HCL 0.4 MG/ML VIAL IM PRN (18:54)
[2024-04-27] MEDS ORDERED: guaiFENesin 600 MG TABLET.ER (FP) PO PRN (18:54)
[2024-04-27] MEDS ORDERED: POLYETHYLENE GLYCOL (HEALTHYLAX) 3350 17 GM PACKET PO PRN (18:54)
[2024-04-27] MEDS ORDERED: BENZOCAINE/MENTHOL (CHLORASEPTIC ) LOZENGE MM PRN (18:54)
[2024-04-27] MEDS ORDERED: LOPERAMIDE HCL 2 MG CAPSULE PO PRN (18:54)
[2024-04-27] MEDS ORDERED: NALOXONE (NARCAN) HCL 4 MG/0.1 ML SPRAY NS PRN (18:54)
[2024-04-27] MEDS ORDERED: MAGNESIUM HYDROX 2400MG/30ML ORAL SUSPENSION 30 ML CUP PO PRN (18:54)
[2024-04-27] MEDS ORDERED: BENZONATATE 200 MG CAPSULE PO PRN (18:54)
[2024-04-27] MEDS ORDERED: IBUPROFEN 400 MG TABLET (FP) PO PRN (18:54)
[2024-04-27] MEDS: ATORVASTATIN CA 40 MG TABLET (FP) PO SCH (21:27)
[2024-04-27] MEDS: THIAMINE 100 MG TABLET PO SCH (21:27)
[2024-04-27] MEDS: MELATONIN 5 MG TABLETS PO SCH (21:28)
[2024-04-27] MEDS: hydrOXYzine PAMOATE 25 MG CAPSULE (FP) PO PRN (21:29)
[2024-04-27 22:10] LABS: PH,URINE 5.5 (5.0-8.0); URINE APPEARANCE CLEAR; URINE BILIRUBIN NEGATIVE (NEGATIVE); URINE COLOR YELLOW; URINE GLUCOSE (UA) NEGATIVE (NEGATIVE); URINE KETONE NEGATIVE (NEGATIVE); URINE LEUK ESTERASE NEGATIVE (NEGATIVE); URINE NITRITE NEGATIVE (NEGATIVE); URINE PROTEIN NEGATIVE (NEGATIVE)
[2024-04-28] MEDS: PRENATAL VITAMINS W/ FOLIC ACID TABLET (FP) PO SCH (10:25)
[2024-04-28] MEDS: ASPIRIN 81 MG CHEWABLE TABLETS PO SCH (10:26)
[2024-04-28] MEDS: CLOPIDOGREL BISULFATE 75 MG TABLET (FP) PO SCH (10:26)
[2024-04-28 11:24] LABS: HEMATOCRIT 41.3 % (35.4-49); HEMOGLOBIN 13.5 GM/dL (11.7-16.9); MCH 27.3 pg (25.7-33.7); MCHC 32.6 g/dl (32.0-35.9); MEAN CELL VOLUME 83.7 fl (80-96); MEAN PLT VOLUME 7.7 fl (7.5-11.1); PLATELET COUNT 465 10^3/uL (134-434); RBC 4.93 M/mm3 (4.00-5.60); RDW 14.5 % (11.9-15.9); WHITE BLOOD COUNT 7.4 K/mm3 (4.0-10.0)
[2024-04-28 13:13] LABS: CHLORIDE 102 mmol/L (98-107); POTASSIUM 4.8 mmol/L (3.5-5.1); SODIUM 136 mmol/L (136-145)
[2024-04-28 13:23] LABS: ALBUMIN 3.7 g/dl (3.4-5.0)
[2024-04-28 13:31] LABS: CALCIUM 9.8 mg/dL (8.5-10.1)
[2024-04-28 13:32] LABS: ANION GAP 7 mmol/L (4-13); BLOOD UREA NITROGEN 23.9 mg/dL (7-18); CO2 27 mmol/L (21-32); GLUCOSE,RANDOM 126 mg/dL (74-106)
[2024-04-28 13:35] LABS: CREATININE 1.3 mg/dL (0.55-1.3); SGPT/ALT 216 U/L (13-61)
[2024-04-28 13:36] LABS: SGOT/AST 91 U/L (15-37)
[2024-04-28 13:37] LABS: BILIRUBIN,TOTAL 0.6 mg/dL (0.2-1); TOT PROT 8.4 g/dl (6.4-8.2)
[2024-04-28 13:38] LABS: ALK PHOS 104 U/L (45-117)
[2024-04-28] MEDS: ESCITALOPRAM OXALATE 20 MG TABLET PO SCH (15:24)
[2024-04-28] MEDS: BICTEGRAV/EMTRICIT/TENOFOV (BIKTARVY) 50-200-25 MG TABLET PO SCH (17:02)
[2024-04-28] MEDS: traZODone HCL 50 MG TABLET (FP) PO SCH (21:43)
[2024-04-28] MEDS: risperiDONE 1 MG TABLET PO SCH (21:43)
[2024-04-29] MEDS ORDERED: ESCITALOPRAM OXALATE 10 MG TABLET ONE (10:24)
[2024-04-29] MEDS: ATORVASTATIN CA 40 MG TABLET (FP) PO SCH (10:26)
[2024-05-01] MEDS ORDERED: ESCITALOPRAM OXALATE 10 MG TABLET ONE (10:31)
[2024-05-02] MEDS ORDERED: ESCITALOPRAM OXALATE 10 MG TABLET ONE (08:44)
[2024-05-02] MEDS ORDERED: ATORVASTATIN CA 20 MG TABLET (FP) ONE (08:46)
[2024-05-03] MEDS ORDERED: ESCITALOPRAM OXALATE 10 MG TABLET ONE (09:03)
[2024-05-04] MEDS ORDERED: ESCITALOPRAM OXALATE 10 MG TABLET ONE (08:28)
[2024-05-04] MEDS: ACETAMINOPHEN 325 MG TABLET (FP) PO PRN (19:28)
[2024-05-05] MEDS ORDERED: ESCITALOPRAM OXALATE 10 MG TABLET ONE (10:46)
[2024-05-06] MEDS ORDERED: ESCITALOPRAM OXALATE 10 MG TABLET ONE (09:03)
[2024-05-06] MEDS ORDERED: NALOXONE (NYS OPIOID OVERDOSE PROGRAM) 4 MG/0.1 ML SPRAY NS PRN (14:43)
[2024-05-06] MEDS: NALOXONE (NYS OPIOID OVERDOSE PROGRAM) 4 MG/0.1 ML SPRAY NS ONE (15:00)
[2024-05-06] MEDS: traZODone HCL 50 MG TABLET (FP) PO SCH (21:04)
[2024-05-08] MEDS ORDERED: ESCITALOPRAM OXALATE 10 MG TABLET ONE (08:48)
[2024-05-09] MEDS ORDERED: ESCITALOPRAM OXALATE 10 MG TABLET ONE (09:13)
[2024-05-09] MEDS ORDERED: ATORVASTATIN CA 20 MG TABLET (FP) ONE (09:13)
[2024-05-09 12:14] LABS: POTASSIUM 4.3 mmol/L (3.5-5.1)
[2024-05-09 12:18] LABS: CALCIUM 9.4 mg/dL (8.5-10.1)
[2024-05-09 12:22] LABS: CREATININE 1.1 mg/dL (0.55-1.3)
[2024-05-10] MEDS: LACTULOSE 20 GM/30 ML UDC (FOR ORAL USE ONLY) PO SCH (14:00)
[2024-05-11] MEDS ORDERED: ESCITALOPRAM OXALATE 10 MG TABLET ONE (08:54)
[2024-05-13] MEDS ORDERED: ESCITALOPRAM OXALATE 10 MG TABLET ONE (08:42)
[2024-05-14] MEDS ORDERED: ESCITALOPRAM OXALATE 10 MG TABLET ONE (09:08)
[2024-05-15] MEDS ORDERED: ESCITALOPRAM OXALATE 10 MG TABLET ONE (08:59)
[2024-05-17] MEDS ORDERED: ESCITALOPRAM OXALATE 10 MG TABLET ONE (09:04)
[2024-05-17] MEDS ORDERED: PRAZOSIN HCL 1 MG CAPSULE PO SCH (10:30)
[2024-05-17] MEDS: PRAZOSIN HCL 1 MG CAPSULE PO SCH (11:08)
[2024-05-17] MEDS: NALTREXONE HCL 50 MG TABLET PO ONE (14:42)
[2024-05-17] MEDS: BACLOFEN 10 MG TABLET (FP) PO SCH (21:47)
[2024-05-18] MEDS ORDERED: ESCITALOPRAM OXALATE 10 MG TABLET ONE (08:31)
[2024-05-18] MEDS: NALTREXONE HCL 50 MG TABLET PO SCH (10:38)
[2024-05-19] MEDS ORDERED: ESCITALOPRAM OXALATE 10 MG TABLET ONE (08:49)
[2024-05-20] MEDS ORDERED: ESCITALOPRAM OXALATE 10 MG TABLET ONE (08:41)
[2024-05-24] MEDS: NALTREXONE MICROSPHERES (VIVITROL) 380 MG DISP.SYRIN IM ONE (10:44)
[2024-05-25 06:38] VITALS: RESP 16; TEMP 97.8
[2024-05-25] MEDS ORDERED: ESCITALOPRAM OXALATE 10 MG TABLET ONE (08:52)
[2024-05-25 09:04] VITALS: BP 137/73; PULSE 88
[2024-05-25] MEDS: NALOXONE (NYS OPIOID OVERDOSE PROGRAM) 4 MG/0.1 ML SPRAY NS PRN (09:15)
[2024-05-25] MEDS: NALOXONE (NARCAN) HCL 4 MG/0.1 ML SPRAY NS ONE (09:19)
== END 2024-05-25 09:52 | disposition home or self-care (01) | DRG 772 ==
LOC: YASAS 17:01 → Y3NR 19:57 → Y3W 05-01 12:46
PROVIDERS: ADMIT Psychiatry & Neurology Pain Medicine; ATTEND Psychiatry & Neurology Pain Medicine
PROC: HZ42ZZZ Group Counseling for Substance Abuse Treatment, Cognitive-Behavioral (ICD-10-PCS; principal; 2024-04-27)
DX: F15.10 Other stimulant abuse, uncomplicated (principal); F25.1 Schizoaffective disorder, depressive type; F19.282 Other psychoactive substance dependence with psychoactive substance-induced sleep disorder; F19.24 Other psychoactive substance dependence with psychoactive substance-induced mood disorder; F41.9 Anxiety disorder, unspecified; F32.A Depression, unspecified; Z21 Asymptomatic human immunodeficiency virus [HIV] infection status; I21.4 Non-ST elevation (NSTEMI) myocardial infarction; E72.20 Disorder of urea cycle metabolism, unspecified; E78.5 Hyperlipidemia, unspecified; Z79.02 Long term (current) use of antithrombotics/antiplatelets; Z87.891 Personal history of nicotine dependence; Z79.899 Other long term (current) drug therapy; Z86.19 Personal history of other infectious and parasitic diseases
CPT/HCPCS: 36415; 80048; 80053; 80305; 80307; 81003; 82140; 82962; 85027; 86593; 86780; 86803; 87811; J0475; J2315